=== PATIENT | male | born 1940 | race Caucasian/White ===

== ENCOUNTER 2016-12-19 11:18 | Observation (INO) | payer OTHER ==
[~2016-12-19] VITALS: Ht 177.8 cm; Wt 77.6 kg
[2016-12-19 05:15] VITALS: BP 182/74; PULSE 54; TEMP 36.5; O2SAT 97; BMI 25.0
[~2016-12-19 11:18] MED LIST: ALPR0.25 PO; AMLO-114 PO; ASCA500 PO; ASPI81TA28 PO; ATOR-26 PO; CARB10TA4 PO; CHOL100010 PO; GARL400T4 PO; LOSA50TA6 PO; LPR25 PO; MISC1CAP PO; MULTTAB58 PO; NTRGSL/4 UT; OXYC-164 PO; PANT1TAB48 PO; SYN125 PO; WARF5TAB90 PO; WARF7.5T PO
[2016-12-19 11:21] VITALS: Ht 177.8 cm; Wt 77.6 kg
--- NOTE | 2016-12-19 11:47 | EMERGENCY ROOM VISIT NOTE ---
History First contact with patient: 11:32 Chief Complaint: HYPERTENSION Stated Complaint: HYPERTENSION, REFERRED BY History of Present Illness The patient is a 76 year old male who presents to the Emergency Room via private vehicle with complaints of "hypertension, referred by Dr. Hanks". The patient states that he has a history of triple bypass in 2003, followed by stent placement in 2009. He states he has had numerous cardiac catheterizations. He states that he had been experiencing angina all winter long with exertion. He states that this changed, as this past Saturday he was sitting in his chair and developed midsternal chest pain that he believes is angina rated as a 2/10. He points to the center of his chest as a location of the pain. He states that this then subsided and Saturday he was walking across the parking lot, and began with a slight increase of midsternal chest pain rated as a 3/10. He states that this disappeared, and then Saturday he walked about 500 yards uphill and developed what he believes is an intense angina, and persisted for about 25 minutes. This episode radiating to the left arm. This then subsided, and Saturday evening, which is yesterday into this morning he developed a hollow feeling in his chest that states is not right. He went to see his ged teacher this morning, who sent him directly here for evaluation. He follows with Dr. Hanks of [facility]. He denies any chest pain currently. He denies associated shortness of breath. He takes an aspirin daily, and does have nitroglycerin tablets but has not taken any recently. He also has renal stenosis, and a CT scan showed aortic plaque. He states the pain he's been experiencing the past few days is similar to his previous chest pain which resulted in triple bypass and stent placement. Review of Systems A complete 10-point Review of Systems was discussed with the patient, with pertinent positives and negatives listed in the History of Present Illness. All remaining Review of Systems questions can be considered negative unless otherwise specified. Past Medical/Surgical History Medical Problems: (1) Anginal pain (2) Atrial fibrillation (3) BPH (benign prostatic hypertrophy) (4) Chest pain (5) Chronic ischemic heart disease (6) CKD (chronic kidney disease), stage III (7) Dyslipidemia (8) History of DVT (deep vein thrombosis) (9) History of peptic ulcer (10) Hypertension (11) Hypothyroidism (12) PAF (paroxysmal atrial fibrillation) (13) Peripheral neuropathy (14) Sleep apnea Surgical Problems: (1) H/O colonoscopy (2) H/O esophagogastroduodenoscopy (3) H/O heart artery stent (4) H/O shoulder surgery (5) S/P appendectomy (6) S/P CABG (coronary artery bypass graft) (7) S/P hemorrhoidectomy (8) S/P lumbar spinal fusion (9) S/P TURP (transurethral resection of prostate) Family History Cancer Diabetes mellitus Gallbladder disease Hypertension Social History Smoking Status: Former Smoker Alcohol Use: none Drug Use: none Marital Status: Housing Status: lives with family Occupation Status: retired Current/Historical Medications Scheduled Amlodipine (Norvasc), 10 MG PO HS Ascorbic Acid (Vitamin C), 500 MG PO DAILY Aspirin (Aspirin Ec), 81 MG PO DAILY Atorvastatin (Lipitor), 80 MG PO DAILY Carbidopa/Levodopa (Sinemet 10MG/100MG), 1 TAB PO HS Cholecalciferol (Vitamin D), 1 TAB PO DAILY Garlic (Garlic), 100 MG PO DAILY Hydralazine Hcl (Apresoline), 25 MG PO BID Levothyroxine Sodium (Synthroid), 125 MCG PO DAILY Losartan Potassium (Cozaar), 50 MG PO BID Metoprolol Tartrate (Lopressor), 12.5 MG PO BID Misc Natural Products (Narcosoft Herbal Lax), 1 TAB PO DAILY Multiple Vitamin (Multivitamin), 1 TAB PO DAILY Oxycodone HCl (Oxycodone HCl ER), 1 TAB PO BID Pantoprazole (Pantoprazole Sodium), 40 MG PO DAILY Warfarin Sodium (Coumadin), 7.5 MG PO UD Scheduled PRN Alprazolam (Xanax), 0.25 MG PO HS PRN for Sleep Nitroglycerin (Nitrostat), 0.4 MG UT UD PRN for Chest Pain Oxycodone Immediate Rel Tab (Roxicodone Ir), 15 MG PO Q6H PRN for Pain Allergies Coded Allergies: Terazosin (Verified Allergy, Intermediate, RASH, 12/19/16) Pseudoephedrine (Verified Allergy, Unknown, UKN, 12/19/16) ART Inhibitors (Verified Adverse Reaction, Mild, COUGH, 12/19/16) Isosorbide Nitrate (Verified Adverse Reaction, Mild, HAWKINS, 12/19/16) Nitrates, Organic (Verified Adverse Reaction, Mild, ORAL NITRATES=HAWKINS, 12/19) Physical Exam Vital Signs Date Time Temp Pulse Resp B/P Pulse Ox O2 Delivery O2 Flow Rate FiO2 12/19/16 13:07 49 16 153/80 95 Room Air 12/19/16 13:00 49 16 151/102 94 Room Air 12/19/16 12:05 51 16 161/109 95 Room Air 12/19/16 11:42 55 12/19/16 11:33 96 Room Air 12/19/16 11:21 36.9 58 18 197/81 98 Room Air 12/19/16 05:15 36.5 54 18 182/74 12/19/16 05:15 97 Room Air Physical Exam VITAL SIGNS - Vital signs and nursing notes were reviewed. GENERAL -76-year-old male appearing his stated age who is in no acute distress. Communicates well with provider and answers questions appropriately. SKIN - Without rashes. No petechial rashes. HEAD - NC/AT. EYES - PERRL with EOMI bilaterally. Sclera anicteric. Palpebral conjunctiva pink and moist with no injection noted. EARS - No deformities of external structures noted on gross examination bilaterally. NOSE - Midline and without cyanosis. No epistaxis or purulent drainage noted. MOUTH/OROPHARYNX - Without perioral cyanosis. LUNGS - Chest wall symmetric without accessory muscle use, intercostals retractions, or central cyanosis. Normal vesicular breath sounds CTA B/L. No wheezes, rales, or rhonchi appreciated. CARDIAC - RRR with S1/S2. No murmur, rubs, or gallops appreciated. ABDOMEN - Abdominal contour without pulsations or visible masses. BS normoactive all four quadrants. No tenderness, palpable masses, hepatosplenomegaly, or ascites noted. Medical Decision & Procedures ER Provider Diagnostic Interpretation: CHEST ONE VIEW PORTABLE CLINICAL HISTORY: Angina. Hypertension. COMPARISON STUDY: Chest radiograph November 30, 2014. FINDINGS: Lung volumes are normal. There is no consolidation. Median sternotomy wires are present. There are mediastinal surgical clips. Mild cardiomegaly is unchanged. There is no evidence of pulmonary edema. IMPRESSION: No acute cardiopulmonary findings. Electronically signed by: Seb Bernal M.D. 12/19/2016 12:54 PM Dictated Date/Time: 12/19/2016 12:53 PM Laboratory Results 12/19/16 12:00 Red Blood Count 4.74, Mean Corpuscular Volume 89.9, Mean Corpuscular Hemoglobin 31.0, Mean Corpuscular Hemoglobin Concent 34.5, Mean Platelet Volume 8.4, Neutrophils (%) (Auto) 67.8, Lymphocytes (%) (Auto) 21.6, Monocytes (%) (Auto) 7.3, Eosinophils (%) (Auto) 3.0, Basophils (%) (Auto) 0.3, Neutrophils # (Auto) 2.22, Lymphocytes # (Auto) 0.71, Monocytes # (Auto) 0.24, Eosinophils # (Auto) 0.10, Basophils # (Auto) 0.01 12/19/16 12:00 Test 12/19/16 12:00 12/19/16 12:09 White Blood Count 3.28 K/uL (4.8-10.8) Red Blood Count 4.74 M/uL (4.7-6.1) Hemoglobin 14.7 g/dL (14.0-18.0) Hematocrit 42.6 % (42-52) Mean Corpuscular Volume 89.9 fL (80-100) Mean Corpuscular Hemoglobin 31.0 pg (25-34) Mean Corpuscular Hemoglobin Concent 34.5 g/dl (32-36) Platelet Count 138 K/uL (130-400) Mean Platelet Volume 8.4 fL (7.4-10.4) Neutrophils (%) (Auto) 67.8 % Lymphocytes (%) (Auto) 21.6 % Monocytes (%) (Auto) 7.3 % Eosinophils (%) (Auto) 3.0 % Basophils (%) (Auto) 0.3 % Neutrophils # (Auto) 2.22 K/uL (1.4-6.5) Lymphocytes # (Auto) 0.71 K/uL (1.2-3.4) Monocytes # (Auto) 0.24 K/uL (0.11-0.59) Eosinophils # (Auto) 0.10 K/uL (0-0.5) Basophils # (Auto) 0.01 K/uL (0-0.2) RDW Standard Deviation 41.9 fL (36.4-46.3) RDW Coefficient of Variation 12.8 % (11.5-14.5) Immature Granulocyte % (Auto) 0.0 % Immature Granulocyte # (Auto) 0.00 K/uL (0.00-0.02) Erythrocyte Sedimentation Rate 6 mm/hr (0-14) Prothrombin Time 17.9 SECONDS (9.0-12.0) Prothromb Time International Ratio 1.6 (0.9-1.1) Activated Partial Thromboplast Time 34.0 SECONDS (21.0-31.0) Partial Thromboplastin Ratio 1.3 Anion Gap 6.0 mmol/L (3-11) Est Creatinine Clear Calc Drug Dose 54.9 ml/min Estimated GFR () 68.1 Estimated GFR (Non- 58.8 BUN/Creatinine Ratio 14.2 (10-20) Calcium Level 8.8 mg/dl (8.5-10.1) Magnesium Level 2.5 mg/dl (1.8-2.4) Total Bilirubin 0.6 mg/dl (0.2-1) Aspartate Amino Transf (AST/SGOT) 25 U/L (15-37) Alanine Aminotransferase (ALT/SGPT) 27 U/L (12-78) Alkaline Phosphatase 82 U/L (45-117) Total Creatine Kinase 129 U/L (39-308) Total Protein 7.1 gm/dl (6.4-8.2) Albumin 4.1 gm/dl (3.4-5.0) Globulin 3.0 gm/dl (2.5-4.0) Albumin/Globulin Ratio 1.4 (0.9-2) Thyroid Stimulating Hormone (TSH) 1.590 uIu/ml (0.300-4.500) Bedside Troponin I 0.000 ng/ml (0-0.045) Medical Decision Patient was seen and evaluated as above. After obtaining a thorough history and physical examination IV access was initiated and the above workup was performed. Patient was referred here by his ged teacher for further evaluation and management with potential admission to the hospital. I do believe that this is all reasonable. Emergent EKG was obtained which reveals a sinus bradycardia with first-degree AV block, and when compared with EKG of 02/2016 a septal infarct is now present. There is no acute ST segment elevation or depression at this time. He denied any current chest pain, therefore medication was not administered. CBC reveals low blood cell count at 3.28 which appears to be similar to previous, no anemia noted, INR is 1.6, no slight abnormality, kidney function is within normal limits, magnesium is 2.5, TSH is normal. Chest x-ray stable. Troponin was 0.000. Patient was stable throughout his stay. He was noted be hypertensive, initially at 197/81, followed by 161/109 which shows a slight decrease in systolic, and then to 151/ 102. Patient does appear to have decrease in his blood pressure throughout his stay there for probably the intervention is necessary. Additional Beta wilber certainly want to be avoided as his pulses are is already low in the 40s. I believe this time the patient is stable for admission. He was evaluated by my attending. At this time I do not believe he is experiencing an acute FL do believe that unstable angina is certainly a concern and that trending EKG and troponin may be warranted. Please refer to further documentation regarding his stay. In the evaluation treatment of this patient the following differential diagnoses were entertained: Acute FL, PE, unstable angina, among others. Impression Primary Impression: Unstable angina Additional Impression: Hypertension Departure Information Dispostion Admitted as an inpatient Condition FAIR Referrals Juliana Tillman MD (PCP) Patient Instructions My [facility] Problem Qualifiers
[2016-12-19 12:15] LABS: BASO % 0.3 %; BASO ABS # 0.01 K/uL (0-0.2); COMPLETE YES; HEMATOCRIT 42.6 % (42-52); LYMPH % 21.6 %; LYMPH ABS # 0.71 K/uL (1.2-3.4); MEAN CELL VOLUME 89.9 fL (80-100); MEAN CORPUSCULAR HGB CONC 34.5 g/dl (32-36); MEAN PLATELET VOLUME 8.4 fL (7.4-10.4); MONO % 7.3 %; NEUT % 67.8 %; PLATELET COUNT 138 K/uL (130-400); RED BLOOD COUNT 4.74 M/uL (4.7-6.1); WHITE BLOOD COUNT 3.28 K/uL (4.8-10.8)
[2016-12-19] MEDS ORDERED: OXYC1TAB3 PO (12:15)
[2016-12-19] MEDS ORDERED: OXYC-787 PO (12:15)
[2016-12-19] MEDS ORDERED: CHOL100010 PO (12:23)
[2016-12-19] MEDS ORDERED: APR25 PO (12:23)
[2016-12-19] MEDS ORDERED: GARL1TAB8 PO (12:26)
--- NOTE | 2016-12-19 12:27 | Cardiology Consultation ---
Cardiology Consultation Date of Consultation: Dec 19, 2016 History of Present Illness Chief Complaint: Chest discomfort History of Present Illness: Mateo Blanc is a 76 year old year old male who presented to the outpatient cardiology clinic today as an acute visit for complaint of recent chest discomfort. The patient had last been seen by the undersigned as an outpatient in March,. He reports no recent hospital stays. He notes that 4 days ago he noted chest discomfort that improved with nitroglycerin. He felt better the next day but still had a hollow feeling in his chest had a little angina during his activities of daily living. He went to a concert that evening and had chest discomfort similar to his prior angina while he walked in to the concert the persisted throughout the performance. He subsequently felt improved. 2 days later on 12/18/2016 he went for a walk and after her walking 500 yards of a minor incline he noted severe left chest discomfort that radiated down his left arm. He relaxed and felt better. He called our office and a visit was arranged for today. Assessment at our office his blood pressure was 170/88 millimeters Hg on initial blood pressure reading taken by the nurse. When I personally read checked his blood pressure it was 160/80 millimeters Hg. The patient denied any definite chest discomfort when I saw him in the office but did note this feeling of hollowness" in his chest. He has a long-standing history of exertional angina with activity such as caring would in the winter time and has a certain threshold of exertion which she usually triggers his angina when he is doing activities such as caring the firewood or even golfing. The chest discomfort he describes over the last several days is occurring with minimal exertion compared to his prior long- standing stable exertional chest discomfort. The patient has had issues with chronic pain due to his generalized neuropathy as well as left brachial neuropathy. He is now on OxyContin as well as immediate release oxycodone as summarized below as managed by who is a transportation equipment painter in [place]. The patient notes recent monthly visits with the transportation equipment painter and his blood pressures have been relatively well controlled. It is noted that in the past he had elevated blood pressure in the setting of uncontrolled pain both his chronic pain in his blood pressure readings have apparently been okay recently. The patient has a long-standing history of coronary artery disease having had CABG x 3 in 2004 at age 64 at [facility]. He has a long-standing history of chronic exertional angina. His medication treatment for this has been limited due to side effects. He has not tolerated long-acting nitroglycerin treatment with isosorbide mononitrate in the past due to headache and debilitating fatigue. He has also not tolerated treatment with Ranexa. He has tolerated amlodipine which is been titrated to the maximum dose of 10 milligrams daily. And he is on a relatively low dose of metoprolol given his baseline sinus bradycardia with first-degree AV block. History Past Medical History: 1. Coronary artery disease with history of stable Class II angina, stable cardiac catheterization , 12/01/14 at [facility] [place] noted at that time with severe afognak vessel disease for which medical management was recommended 2. Paroxysmal Atrial fibrillation, (noted when post op CABG) with recurrence hospitalization 11/2012 3. Left median nerve neuropathy, status post failed left radial artery approach, subsequent left brachial artery approach. Cardiac catheterization 06/11. 4. Left upper extremity DVT, diagnosed on duplex 06/16/12, post cath 5. Stable angina, LAD territory ischemia on pharm nuclear stress, preserved LVEF -prompted cath 06/2012- medical Rx recommened, no target for revascularization 6. Post CABG x 3 in 2004 at [facility] with OATES to LAD, saphenous vein graft to obtuse marginal and PDA. 7. Patent grafts per cardiac catheterization February 2010 with bare metal stenting to the afognak circumflex artery with bare metal stent at that time. 8. Prior h/o stage 3 CKD 9. Dyslipidemia 10. Intolerance of Nitroglycerin analogs including topical Nitroglycerin as well as Isosorbide. 11. History of intolerance of Loyd inhibitors. 12. 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 Allergies Coded Allergies: Pseudoephedrine (Verified Allergy, Unknown, UKN, 12/19/16) Terazosin (Verified Allergy, Unknown, RASH, 12/19/16) LOYD Inhibitors (Verified Adverse Reaction, Mild, COUGH, 12/19/16) Isosorbide Nitrate (Verified Adverse Reaction, Mild, HAWKINS, 12/19/16) Nitrates, Organic (Verified Adverse Reaction, Mild, ORAL NITRATES=HAWKINS, 12/19) Medications Reported Home Medications Medications Dose Route/Sig Max Daily Dose Days Date Category Dose Instructions Roxicodone Ir (Oxycodone HCl) 5 Mg Tab 15 Mg PO Q6H PRN 12/19/16 Reported Oxycodone HCl ER (Oxycodone HCl) 30 Mg Tab 1 Tab PO BID 12/19/16 Reported Protonix (Pantoprazole) 40 Mg Tab 40 Mg PO BID 30 04/20/15 Rx Aspirin Ec (Aspirin) 81 Mg Tab 81 Mg PO DAILY 03/29/15 Reported Cozaar (Losartan Potassium) 50 Mg Tab 50 Mg PO BID 03/29/15 Reported Synthroid (Levothyroxine Sodium) 125 Mcg Tab 125 Mcg PO DAILY 03/29/15 Reported Coumadin (Warfarin Sodium) 7.5 Mg Tab 7.5 Mg PO 3XWK 01/11/15 Reported TAKE ON SATURDAY,SATURDAY,THURSDAYS Narcosoft Herbal Lax ([facility] Natural Products) 1 Cap Cap 1 Tab PO DAILY 11/30/14 Reported Vitamin C (Ascorbic Acid) 500 Mg Tab 500 Mg PO DAILY 11/30/14 Reported Garlic (Garlic-Calcium) 1 Tab Tab 100 Mg PO DAILY 11/30/14 Reported Coumadin (Warfarin Sodium) 5 Mg Tab 5 Mg PO 4XWK 11/30/14 Reported MON,WED,FRI,SAT Lopressor (Metoprolol Tartrate) 25 Mg Tab 12.5 Mg PO BID 11/30/14 Reported Lipitor (Atorvastatin Calcium) 80 Mg Tab 80 Mg PO DAILY 12/02/12 Reported Multivitamin (Multiple Vitamin) 1 Tab Tab 1 Tab PO DAILY 06/17/12 Reported Xanax (Alprazolam) 0.25 Mg Tab 0.25 Mg PO HS PRN 06/17/12 Reported Nitrostat (Nitroglycerin) 0.4 Mg Tab 0.4 Mg UT UD PRN 07/14/10 Reported Sinemet 10MG/100MG (Carbidopa/Levodopa) Tab 1 Tab PO HS 06/14/10 Reported RESTLESS LEGS Vitamin D (Cholecalciferol) 1,000 Inter.unit Tab 1,000 Inter.unit PO DAILY 06/14/10 Reported Norvasc (Amlodipine Besylate) 10 Mg Tab 10 Mg PO HS 06/14/10 Reported Physical Exam Vital Signs (Last 8hrs): Last 8 Hrs Date Time Temp Pulse Resp B/P Pulse Ox O2 Delivery O2 Flow Rate FiO2 12/19/16 12:05 51 16 161/109 95 Room Air 12/19/16 11:42 55 12/19/16 11:33 96 Room Air 12/19/16 11:21 36.9 58 18 197/81 98 Room Air As Examined at [facility], 04/20/17 at 925 am. General Appearance: Alert and Oriented x3. NAD. Head: Normocephalic Atraumatic. Eyes: PERRLA, EOMI, conjunctiva and sclera clear Neck: Supple. No carotid bruits noted. No JVD. No HJD. Respiratory: Breath sounds clear to auscultation bilaterally. No w/r/r. Cardiovascular: Reg rate and rhythm. S1 and S2 noted. No murmurs, rubs, gallops. PMI non displace. Abdomen: Normal bowel sounds, soft nontender. no abdominal bruits. Extremities: No edema, no clubbing or cyanosis. distal pulses 2/4 bilaterally. Neuro: No focal deficits. Psychiatric: Normal affect. Data Last Resulted 12/19/16 12:00 Red Blood Count 4.74, Mean Corpuscular Volume 89.9, Mean Corpuscular Hemoglobin 31.0, Mean Corpuscular Hemoglobin Concent 34.5, Mean Platelet Volume 8.4, Neutrophils (%) (Auto) 67.8, Lymphocytes (%) (Auto) 21.6, Monocytes (%) (Auto) 7.3, Eosinophils (%) (Auto) 3.0, Basophils (%) (Auto) 0.3, Neutrophils # (Auto) 2.22, Lymphocytes # (Auto) 0.71, Monocytes # (Auto) 0.24, Eosinophils # (Auto) 0.10, Basophils # (Auto) 0.01 Past 24 Hours Test 12/19/16 11:43 12/19/16 12:00 Range/Units Creatine Kinase MB Ratio 0-3.0 EKG performed 12/19/2016 reviewed independently by the undersigned: Sinus bradycardia 54 beats per minute, first-degree AV block, age undetermined septal infarction pattern, stable EKG findings compared to last tracing. Assessment & Plan IMPRESSION: 76 year old year old male who presents with symptoms of unstable angina in the setting of uncontrolled hypertension. RECOMMENDATIONS/PLAN: The patient 's EKG is stable. The patient has a long-standing history of chronic stable exertional angina. He has a pattern of past crescendo angina with cardiac catheterization in 2011 in 2014 revealing stable disease for which medical management was recommended. He did receive a bare metal stent to the afognak circumflex in 2009. He has a history of past gastrointestinal bleeding and duodenal ulcer that is been stable on aspirin plus Coumadin for the last several years with stable hemoglobin. I had a long discussion with the patient and his spouse. I recommend emergency room evaluation and admission to [facility] for observation. His cardiac enzymes and EKG should be trended to rule out myocardial infarction. In terms of therapy, recommend aggressive therapy to better control his blood pressure. Would consider starting with a sublingual nitroglycerin in the emergency department. In terms of his chronic medications would first increase his hydralazine to 25 milligrams three times daily or even four times daily. There is no room to increase his beta-wilber therapy due to sinus bradycardia. He is on a maximum dose of losartan. His on a maximum dose of amlodipine. If his anginal symptoms not improve with conservative therapy and optimal blood pressure management will likely need repeat cardiac catheterization which should be performed at a tertiary center. His past cardiac catheterizations were performed at [facility]. 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
[2016-12-19 12:31] LABS: INR 1.6 (0.9-1.1); PARTIAL THROMBOPLASTIN RATIO 1.3; PROTHROMBIN TIME (PATIENT) 17.9 SECONDS (9.0-12.0)
[2016-12-19 12:37] LABS: BUN/CREATININE RATIO 14.2 (10-20); CALCIUM 8.8 mg/dl (8.5-10.1); CREATININE 1.2 mg/dl (0.60-1.40); MAGNESIUM 2.5 mg/dl (1.8-2.4); POTASSIUM 4.3 mmol/L (3.5-5.1)
[2016-12-19 12:48] LABS: ALB/GLOB RATIO 1.4 (0.9-2); CKMB/CK RATIO 1.3 (0-3.0); THYROID STIMULATING HORMONE 1.59 uIu/ml (0.300-4.500)
--- NOTE | 2016-12-19 12:56 | DIAGNOSTIC IMAGING REPORT ---
CHEST ONE VIEW PORTABLE CLINICAL HISTORY: Angina. Hypertension. COMPARISON STUDY: Chest radiograph November 30, 2014. FINDINGS: Lung volumes are normal. There is no consolidation. Median sternotomy wires are present. There are mediastinal surgical clips. Mild cardiomegaly is unchanged. There is no evidence of pulmonary edema. IMPRESSION: No acute cardiopulmonary findings. Electronically signed by: Seb Bernal M.D. 12/19/2016 12:54 PM Dictated Date/Time: 12/19/2016 12:53 PM
--- NOTE | 2016-12-19 13:09 | EMERGENCY ROOM VISIT NOTE ---
ED Visit Note First contact with patient: 11:32 I did evaluate and examine this patient myself. I did guide management for the patient. I agree with the PA's assessment as discussed. Please see the PAs dictation for further details. I did independently review the 12-lead EKG, x- rays and blood work. I did talk to Dr. Hanks regarding this patient. He was sent here for hospitalization. His blood pressure is significantly improved. He currently denies any chest discomfort. [facility].
[2016-12-19] MEDS ORDERED: NITROGLYCERIN 0.4 MG SL PER TAB CHARGE SL PRN (14:00)
[2016-12-19] MEDS ORDERED: ONDANSETRON INJ 2 MG/ML 2 ML VIAL IV PRN (14:00)
[2016-12-19] MEDS ORDERED: ACETAMINOPHEN 325 MG TAB PO PRN (14:00)
[2016-12-19] MEDS ORDERED: WARF5TAB90 PO (14:11)
[2016-12-19] MEDS ORDERED: PRT40 PO (14:11)
[2016-12-19] MEDS ORDERED: OXYCODONE HCL IR 5 MG TAB (IMMEDIATE RELEASE) PO PRN (14:15)
[2016-12-19] MEDS ORDERED: ALPRAZOLAM 0.25 MG TAB PO PRN (14:15)
[2016-12-19] MEDS ORDERED: IV FLUIDS COMPLETED PRN (14:30)
--- NOTE | 2016-12-19 15:08 | History and Physical ---
History & Physical Date & Time of Service: Dec 19, 2016 at 14:28 Chief Complaint: Hypertension, Referred By Md Primary Care Physician: No Doctor, Assigned History of Present Illness This is a 76 y/o male with PMHx of CAD s/p CABG, PAF on Coumadin, CKD stage 3, HTN, Dyslipidemia and other problems as outlined below who presents to the ED from the cardiology office with complaints of chest discomfort. Pt reports that 4 days ago he developed 2/10 central chest pain while sitting watching TV. The discomfort lasted about 10 minutes before resolving without intervention. The next day, patient developed similar chest discomfort as he was walking to a concert and it persisted for the entire performance (about 75 mins). Two days ago, patient was walking up a slight incline and after about 500 yds he developed 8/10 L chest pain that radiated down his L arm. He did not have his nitro on him and the severe pain persisted for about 30 minutes before resolving. Yesterday evening into this morning he developed a "hollow" feeling in his chest that "doesn't feel right". Pt has a history of chronic exertional angina. The chest discomfort he describes over the last several days is more intense and occurring with minimal exertion compared to his prior long-standing stable exertional chest discomfort. Pt has a history of CAD s/p CABG x 3 in 2004 at [facility] as well as one stent place in 2009. Cardiac cath in 2014 showed non-obstructive CAD that was managed medically. Pt was seen by cardiology (Dr. Hanks) in the office this morning. They recommended pt go to the ED for further evaluation. The patient has had issues with chronic pain due to his generalized neuropathy. He takes OxyContin as well as Oxycodone IR and follows with pain mgmt in [place]. Pt denies fever/chills, diaphoresis, SOB, abd pain, N/V, bowel or bladder issues , LE edema ,calf pain, lightheadedness/dizziness. In the ED, pt is bradycardic with elevated blood pressure. INR 1.6. CXR negative. Initial trop is negative and EKG shows bradycardia with 1* AV block and age indeterminate septal infarct. Pt is currently chest pain free and will be admitted for further evaluation and treatment. Past Medical/Surgical History Medical Problems: (1) Anginal pain Status: Chronic (2) Atrial fibrillation Status: Chronic (3) BPH (benign prostatic hypertrophy) Permanent Comment: s/p TURP 11/2010 Status: Chronic (4) Chronic ischemic heart disease Status: Chronic (5) CKD (chronic kidney disease), stage III Status: Chronic (6) Dyslipidemia Status: Chronic (7) History of DVT (deep vein thrombosis) Permanent Comment: 06/2012- left upper extremity Status: Chronic (8) History of peptic ulcer Status: Chronic (9) Hypertension Status: Chronic (10) Hypothyroidism Status: Chronic (11) PAF (paroxysmal atrial fibrillation) Status: Chronic (12) Peripheral neuropathy Status: Chronic (13) Sleep apnea Status: Chronic Surgical Problems: (1) H/O colonoscopy Status: Chronic (2) H/O esophagogastroduodenoscopy Status: Chronic (3) H/O heart artery stent Status: Chronic (4) H/O shoulder surgery Status: Chronic (5) S/P appendectomy Status: Chronic (6) S/P CABG (coronary artery bypass graft) Permanent Comment: 2003- CABG x 3 Status: Chronic (7) S/P hemorrhoidectomy Status: Chronic (8) S/P lumbar spinal fusion Status: Chronic (9) S/P TURP (transurethral resection of prostate) Status: Chronic Family History Cancer Diabetes mellitus Gallbladder disease Hypertension Social History Smoking Status: Former Smoker (17 pack year history; quit 40 years ago ) Alcohol Use: none Drug Use: none Marital Status: Housing status: lives with significant other Occupational Status: retired Immunizations History of Influenza Vaccine: No History of Tetanus Vaccine?: Unknown History of Pneumococcal: Yes Pneumococcal Date: Sep 18, 2007 History of Hepatitis B Vaccine: No Multi-Drug Resistant Organisms History of MDRO: No Allergies Coded Allergies: Terazosin (Verified Allergy, Intermediate, RASH, 12/19/16) Pseudoephedrine (Verified Allergy, Unknown, UKN, 12/19/16) ART Inhibitors (Verified Adverse Reaction, Mild, COUGH, 12/19/16) Isosorbide Nitrate (Verified Adverse Reaction, Mild, HAWKINS, 12/19/16) Nitrates, Organic (Verified Adverse Reaction, Mild, ORAL NITRATES=HAWKINS, 12/19) Home Medications Scheduled Amlodipine (Norvasc), 10 MG PO HS Ascorbic Acid (Vitamin C), 500 MG PO DAILY Aspirin (Aspirin Ec), 81 MG PO DAILY Atorvastatin (Lipitor), 80 MG PO DAILY Carbidopa/Levodopa (Sinemet 10MG/100MG), 1 TAB PO HS Cholecalciferol (Vitamin D), 1 TAB PO DAILY Garlic (Garlic), 100 MG PO DAILY Hydralazine Hcl (Apresoline), 25 MG PO BID Levothyroxine Sodium (Synthroid), 125 MCG PO DAILY Losartan Potassium (Cozaar), 50 MG PO BID Metoprolol Tartrate (Lopressor), 12.5 MG PO BID Misc Natural Products (Narcosoft Herbal Lax), 1 TAB PO DAILY Multiple Vitamin (Multivitamin), 1 TAB PO DAILY Oxycodone HCl (Oxycodone HCl ER), 1 TAB PO BID Pantoprazole (Pantoprazole Sodium), 40 MG PO DAILY Warfarin Sodium (Coumadin), 7.5 MG PO UD Scheduled PRN Alprazolam (Xanax), 0.25 MG PO HS PRN for Sleep Nitroglycerin (Nitrostat), 0.4 MG UT UD PRN for Chest Pain Oxycodone Immediate Rel Tab (Roxicodone Ir), 15 MG PO Q6H PRN for Pain Review of Systems Constitutional: No chills, No fatigue, No fever, No sweats, No weakness Eyes: No worsening of vision ENT: No hearing loss Respiratory: No cough, No shortness of breath Cardiovascular: + chest pain, No claudication, No edema Abdomen: No constipation, No diarrhea, No nausea, No pain, No vomiting Musculoskeletal: No calf pain, No swelling Genitourinary - Male: No dysuria Neurologic: No weakness Psychiatric: No depression symptoms Endocrine: No fatigue Hematologic / Lymphatic: No abnormal bleeding/bruising Integumentary: No new/changing skin lesions Physical Exam Vital Signs Date Time Temp Pulse Resp B/P Pulse Ox O2 Delivery O2 Flow Rate FiO2 12/19/16 13:07 49 16 153/80 95 Room Air 12/19/16 13:00 49 16 151/102 94 Room Air 12/19/16 12:05 51 16 161/109 95 Room Air 12/19/16 11:42 55 12/19/16 11:33 96 Room Air 12/19/16 11:21 36.9 58 18 197/81 98 Room Air General Appearance: WD/WN, no apparent distress, + pertinent finding (Pt is sitting up in bed with at bedside) Head: normocephalic, atraumatic Eyes: normal inspection ENT: hearing grossly normal Neck: supple Respiratory/Chest: chest non-tender, lungs clear, normal breath sounds, no respiratory distress Cardiovascular: regular rate, rhythm, no edema, no murmur Abdomen/GI: normal bowel sounds, non tender, soft Back: normal inspection Extremities/Musculoskelatal: normal inspection, no calf tenderness, no pedal edema Neurologic/Psych: alert, normal mood/affect, oriented x 3 Skin: normal color, warm/dry Diagnostics Laboratory Results Results Past 24 Hours Test 12/19/16 12:00 12/19/16 12:09 Range/Units White Blood Count 3.28 4.8-10.8 K/uL Red Blood Count 4.74 4.7-6.1 M/uL Hemoglobin 14.7 14.0-18.0 g/dL Hematocrit 42.6 42-52 % Mean Corpuscular Volume 89.9 80-100 fL Mean Corpuscular Hemoglobin 31.0 25-34 pg Mean Corpuscular Hemoglobin Concent 34.5 32-36 g/dl Platelet Count 138 130-400 K/uL Mean Platelet Volume 8.4 7.4-10.4 fL Neutrophils (%) (Auto) 67.8 % Lymphocytes (%) (Auto) 21.6 % Monocytes (%) (Auto) 7.3 % Eosinophils (%) (Auto) 3.0 % Basophils (%) (Auto) 0.3 % Neutrophils # (Auto) 2.22 1.4-6.5 K/uL Lymphocytes # (Auto) 0.71 1.2-3.4 K/uL Monocytes # (Auto) 0.24 0.11-0.59 K/uL Eosinophils # (Auto) 0.10 0-0.5 K/uL Basophils # (Auto) 0.01 0-0.2 K/uL RDW Standard Deviation 41.9 36.4-46.3 fL RDW Coefficient of Variation 12.8 11.5-14.5 % Immature Granulocyte % (Auto) 0.0 % Immature Granulocyte # (Auto) 0.00 0.00-0.02 K/uL Prothrombin Time 17.9 9.0-12.0 SECONDS Prothromb Time International Ratio 1.6 0.9-1.1 Activated Partial Thromboplast Time 34.0 21.0-31.0 SECONDS Partial Thromboplastin Ratio 1.3 Sodium Level 140 136-145 mmol/L Potassium Level 4.3 3.5-5.1 mmol/L Chloride Level 105 98-107 mmol/L Carbon Dioxide Level 29 21-32 mmol/L Anion Gap 6.0 3-11 mmol/L Blood Urea Nitrogen 17 7-18 mg/dl Creatinine 1.20 0.60-1.40 mg/dl Est Creatinine Clear Calc Drug Dose 54.9 ml/min Estimated GFR () 68.1 Estimated GFR (Non- 58.8 BUN/Creatinine Ratio 14.2 10-20 Random Glucose 84 70-99 mg/dl Calcium Level 8.8 8.5-10.1 mg/dl Magnesium Level 2.5 1.8-2.4 mg/dl Total Bilirubin 0.6 0.2-1 mg/dl Aspartate Amino Transf (AST/SGOT) 25 15-37 U/L Alanine Aminotransferase (ALT/SGPT) 27 12-78 U/L Alkaline Phosphatase 82 45-117 U/L Total Creatine Kinase 129 39-308 U/L Creatine Kinase MB 1.7 0.5-3.6 ng/ml Creatine Kinase MB Ratio 1.3 0-3.0 Total Protein 7.1 6.4-8.2 gm/dl Albumin 4.1 3.4-5.0 gm/dl Globulin 3.0 2.5-4.0 gm/dl Albumin/Globulin Ratio 1.4 0.9-2 Thyroid Stimulating Hormone (TSH) 1.590 0.300-4.500 uIu/ml Bedside Troponin I 0.000 0-0.045 ng/ml Diagnostic Radiology CXR IMPRESSION: No acute cardiopulmonary findings. EKG EKG: sinus attila at 54 bpm with 1* AV block and age indeterminate septal infarct ; criteria for septal infarct is new when compared to EKG from 01/13/16 Impression Assessment and Plan CHEST PAIN R/O ACS pt presented with chest pain occurring with exertion and at rest -observation status to telemetry -RFs include CAD s/p CABG and stents, HTN, Dyslipidemia, sex and age -cardiac cath 2014 non-obstructive CAD -EKG sinus attila with 1* AV block and age indeterminate septal infarct; repeat EKG PRN chest pain and in AM -Initial troponin is negative; continue to monitor with serial cardiac enzymes q6h -obtain echo to r/o cardiac wall motion abnormalities -cont ASA, BB and high-dose statin -consult cardiology, Dr. Rosen-appreciate input -pt is currently chest pain free -continue to monitor HYPERTENSION -BP elevated in ED; now 150s/80s -cont hydralazine, losartan, amlodipine and metoprolol -monitor PAF -sinus rhythm on monitor -INR subtherapeutic at 1.6 -cont Coumadin and metoprolol -monitor INR daily CKD STAGE 3 -creatinine is at baseline around 1.2 -continue to monitor with daily prp and avoid nephrotoxic agents when able HYPOTHYROIDISM -cont levothyroxine CHRONIC NEUROPATHIC PAIN -cont OxyContin and Oxycodone IR -pt follows with pain holistic specialist in [place] DYSLIPIDEMIA -cont high-dose statin DVT PROPHYLAXIS -INR subtherapeutic (1.6); cont Coumadin and bridge with heparin CODE STATUS -FULL CODE status per discussion with patient upon admission. DISPO Observation status until further workup is complete. Pt seen in collaboration with Dr. Vargas. Please see his addendum for further details. Thanks! -Of note: patient will be followed by Dr. Wiggins starting tomorrow AM VTE Prophylaxis VTE Risk Assessment Done? Y/N: Yes Risk Level: High Note ATTENDING ADDENDUM Record reviewed. Patient interviewed and examined in ED @ 14:05. Care coordinated with Stacie Wilson PA-C. Please refer to her documentation for patient's history. Briefly, 76 YO male with ischemic heart disease, s/p PCI circumflex, s/p CABG. Presented with worsening exertional angina over past 1-2 weeks. EXAM: General- no acute distress VS- as noted Neck- no JVD Lungs- clear Heart- RRR, II/ sys murmur at base, no gallop Abdomen- + BS, soft, nontender Extremities- no pretibial edema or calf tenderness Neuro- alert DATA: Total CPK 129, CPK-MB 1.7, trop I 0.00. Other lab studies as noted. CXR- postsurgical changes, no acute process. EKG performed at 11:33 reviewed and demonstrated SB at 54 / minute, possible age -indeterminate septal infarct, no acute ST or T-wave changes.. ASSESSMENT AND PLAN: Suspected unstable angina. EKG suggests age-indeterminate septal infarct that is new compared to 01/13/16. Continue aspirin, metoprolol, amlodipine, losartan, statin. Increase hydralazine per Cardiology's recommendations. Check serial cardiac markers. History of PAF. EKG today shows SB. Continue metoprolol and warfarin. Please refer to DANNA Wilson's documentation for discussion of other issues. David Vargas MD .
[2016-12-19] MEDS ORDERED: WARFARIN SOD 5 MG TAB PO SCH (16:00)
[2016-12-19] MEDS: OXYCODONE HCL IR 5 MG TAB (IMMEDIATE RELEASE) PO SCH ×2 (16:38→21:22)
[2016-12-19 20:00] VITALS: BP 154/73; PULSE 56; TEMP 36.7; O2SAT 94
[2016-12-19] MEDS: OXYCODONE HCL 15 MG TABCR (OXYCONTIN) PO SCH (20:32)
[2016-12-19] MEDS: LOSARTAN POTASSIUM 50 MG TAB PO SCH (20:35)
[2016-12-19] MEDS: METOPROLOL TARTRATE 25 MG TAB PO SCH (20:36)
[2016-12-19] MEDS ORDERED: CARBIDOPA/LEVODOPA 10/100MG TAB PO SCH (21:00)
[2016-12-19] MEDS ORDERED: AMLODIPINE BESYLATE 5 MG TAB PO SCH (21:00)
[2016-12-19] MEDS: HEPARIN SOD 5000 UNIT/0.5 ML CARP SQ SCH (21:21)
[2016-12-20] VITALS: BP 152/90; PULSE 53; TEMP 36.7; O2SAT 96
[2016-12-20 04:03] VITALS: BP 149/81; PULSE 52; TEMP 36.6; O2SAT 97
[2016-12-20] MEDS ORDERED: LEVOTHYROXINE 125 MCG TAB PO SCH (06:00)
[2016-12-20 06:30] VITALS: BP 161/84; PULSE 54
[2016-12-20 07:20] VITALS: BP 147/75; PULSE 54; TEMP 36.4; O2SAT 94
[2016-12-20 07:31] LABS: HEMATOCRIT 39.6 % (42-52); MEAN CELL VOLUME 91.2 fL (80-100); MEAN CORPUSCULAR HEMOGLOBIN 31.1 pg (25-34); MEAN CORPUSCULAR HGB CONC 34.1 g/dl (32-36); MEAN PLATELET VOLUME 8.5 fL (7.4-10.4); PLATELET COUNT 116 K/uL (130-400); RED BLOOD COUNT 4.34 M/uL (4.7-6.1); WHITE BLOOD COUNT 2.53 K/uL (4.8-10.8)
[2016-12-20 07:44] LABS: INR 1.6 (0.9-1.1); PROTHROMBIN TIME (PATIENT) 17.6 SECONDS (9.0-12.0)
[2016-12-20 08:36] LABS: BUN/CREATININE RATIO 17.5 (10-20); CREATININE 1.1 mg/dl (0.60-1.40); POTASSIUM 3.8 mmol/L (3.5-5.1)
[2016-12-20] MEDS: LOSARTAN POTASSIUM 50 MG TAB PO SCH (08:50)
[2016-12-20] MEDS: METOPROLOL TARTRATE 25 MG TAB PO SCH (08:50)
[2016-12-20] MEDS: OXYCODONE HCL IR 5 MG TAB (IMMEDIATE RELEASE) PO SCH ×2 (08:51→12:25)
[2016-12-20 08:56] LABS: CALCIUM 9.5 mg/dl (8.5-10.1)
[2016-12-20] MEDS ORDERED: ATORVASTATIN 40 MG TAB PO SCH (09:00)
[2016-12-20] MEDS ORDERED: MULTIVITAMIN TAB PO SCH (09:00)
[2016-12-20] MEDS ORDERED: ASPIRIN 81 MG ECTAB PO SCH (09:00)
[2016-12-20] MEDS ORDERED: PANTOprazole SOD 40 MG TAB PO SCH (09:00)
[2016-12-20] MEDS ORDERED: GARLIC 100 MG PO SCH (09:00)
[2016-12-20] MEDS ORDERED: ASCORBIC ACID 500 MG TAB PO SCH (09:00)
[2016-12-20] MEDS ORDERED: CHOLECALCIFEROL 1000 INTER.UNIT TAB PO SCH (09:00)
[2016-12-20] MEDS ORDERED: NATURAL PRODUCTS PO SCH (09:00)
[2016-12-20] MEDS: HEPARIN SOD 5000 UNIT/0.5 ML CARP SQ SCH (09:01)
--- NOTE | 2016-12-20 10:02 | ECHOCARDIOGRAM REPORT ---
*NOTICE TO RECEIVING [employer] This information is strictly Confidential and protected under [place] law. [place] law prohibits you from making any further disclosure of this information unless further disclosure is expressly permitted by the written consent of the person to whom it pertains or is authorized by law. A general authorization for the release of medical or other information is not sufficient for this purpose. Hospital accepts no responsibility if the information is made available to any other person, INCLUDING THE PATIENT. Interpretation Summary * Name: TAY YU Study Date: 12/20/2016 06:44 AM BP: 147/75 mmHg * Patient Location: C.2T\S\S244\S\1 HR: 54 * : 1940 (M/d/yyyy) Gender: Male Height: 70 in * Age: 76 yrs Ethnicity: CA Weight: 177 lb * Ordering Physician: Stacie Wilson * Referring Physician: Mike Hanks D.O. * Performed By: Jessie Cui RDCS * * Reason For Study: Chest pain * BSA: 2.0 m2 * Compared to prior study, there is no significant change. * -- Conclusions -- * The left ventricle is normal in size. * There is normal left ventricular wall thickness. * There is mild inferior wall hypokinesis. * Left ventricular systolic function is normal. * Ejection Fraction = 60-65%. * Aortic valve sclerosis moderate, without significant aortic valvular stenosis. * There is trace mitral regurgitation. * There is trace tricuspid regurgitation. Procedure Details * A complete two-dimensional transthoracic echocardiogram was performed (2D, M-mode, Doppler and color flow Doppler). Left Ventricle * The left ventricle is normal in size. * There is normal left ventricular wall thickness. * Left ventricular systolic function is normal. * Ejection Fraction = 60-65%. * There is mild inferior wall hypokinesis. Right Ventricle * The right ventricle is normal in size and function. Atria * The left atrial size is normal. * Right atrial size is normal. * No ASD detected; PFO is not assessed. Mitral Valve * The mitral valve anatomy is normal. * There is no mitral valve stenosis. * There is trace mitral regurgitation. Tricuspid Valve * The tricuspid valve is normal. * There is no tricuspid stenosis. * There is trace tricuspid regurgitation. Aortic Valve * The aortic valve is trileaflet. * Aortic valve sclerosis moderate, without significant aortic valvular stenosis. * No aortic regurgitation is present. Pulmonic Valve * The pulmonic valve is not well visualized. Great Vessels * The aortic root is normal size. Pericardium/Pleural * There is no pericardial effusion. Great Vessels * Normal inferior vena cava diameter and respiratory variation suggests normal central venous pressure. MMode 2D Measurements and Calculations IVSd 0.93 cm LVIDd 4.5 cm LVIDs 3.2 cm LVPWd 1.0 cm IVS/LVPW 0.90 FS 29.6 % EDV(Teich) 91.2 ml ESV(Teich) 39.4 ml EF(Teich) 56.8 % EDV(cubed) 89.6 ml ESV(cubed) 31.3 ml EF(cubed) 65.1 % LV mass(C)d 148.2 grams LV mass(C)dI 74.8 grams/m\S\2 SV(Teich) 51.8 ml SI(Teich) 26.1 ml/m\S\2 SV(cubed) 58.3 ml SI(cubed) 29.4 ml/m\S\2 Ao root diam 3.2 cm Ao root area 7.8 cm\S\2 ACS 1.8 cm LA dimension 3.2 cm asc Aorta Diam 3.6 cm LA/Ao 10 LVOT diam 2.0 cm LVOT area 3.1 cm\S\2 LVAd ap4 29.5 cm\S\2 LVLd ap4 8.4 cm EDV(MOD-sp4) 87.7 ml EDV(sp4-el) 87.6 ml LVAs ap4 15.3 cm\S\2 LVLs ap4 6.7 cm ESV(MOD-sp4) 32.7 ml ESV(sp4-el) 29.6 ml EF(MOD-sp4) 62.7 % EF(sp4-el) 66.2 % LVAd ap2 24.0 cm\S\2 LVLd ap2 8.0 cm EDV(MOD-sp2) 62.5 ml EDV(sp2-el) 61.0 ml LVAs ap2 11.7 cm\S\2 LVLs ap2 5.9 cm ESV(MOD-sp2) 20.5 ml ESV(sp2-el) 19.7 ml EF(MOD-sp2) 67.2 % EF(sp2-el) 67.8 % LVLd %diff -4.84 % EDV(MOD-bp) 75.5 ml LVLs %diff -13.64 % ESV(MOD-bp) 27.5 ml EF(MOD-bp) 63.6 % SV(MOD-sp4) 54.9 ml SI(MOD-sp4) 27.7 ml/m\S\2 SV(MOD-sp2) 42.0 ml SI(MOD-sp2) 21.2 ml/m\S\2 SV(MOD-bp) 48.0 ml SI(MOD-bp) 24.2 ml/m\S\2 SV(sp4-el) 57.9 ml SI(sp4-el) 29.2 ml/m\S\2 SV(sp2-el) 41.3 ml SI(sp2-el) 20.9 ml/m\S\2 Doppler Measurements and Calculations MV E max robel 71.8 cm/sec MV A max robel 63.5 cm/sec MV E/A 1.1 MV dec time 0.17 sec Ao V2 max 135.6 cm/sec Ao max PG 7.4 mmHg Ao max PG (full) 3.1 mmHg KINGS(V,A) 2.4 cm\S\2 KINGS(V,D) 2.4 cm\S\2 LV V1 max PG 4.3 mmHg LV V1 max 103.3 cm/sec PA V2 max 111.3 cm/sec PA max PG 5.0 mmHg PA acc slope 327.2 cm/sec\S\2 PA acc time 0.14 sec PI max robel 175.1 cm/sec PI max PG 12.3 mmHg PI dec slope 110.5 cm/sec\S\2 PI P1/2t 464.0 msec PA pr(Accel) 15.6 mmHg
[2016-12-20] MEDS: OXYCODONE HCL 15 MG TABCR (OXYCONTIN) PO SCH (10:07)
[2016-12-20 11:08] VITALS: BP 143/81; PULSE 57; TEMP 36.8; O2SAT 95
--- NOTE | 2016-12-20 11:57 | PROGRESS NOTE ---
DATE: 12/20/2016 CARDIOLOGY CONSULTATION FOLLOWUP NOTE The patient seen and examined. Chart, medications, telemetry reviewed. SUBJECTIVE: The patient denies any further chest pains or discomfort. Notes no dizziness or lightheadedness. Notes no syncope or near syncope. Cardiac enzymes were negative for any injury or infarct. He has been ambulatory in room and wishes to be discharged today. Blood pressures are trending better. PHYSICAL EXAMINATION: VITAL SIGNS: Heart rate is 57, blood pressure is 143/80. NECK: Thin. There is no jugular venous distention. LUNGS: Clear. CARDIOVASCULAR: Regular with normal S1, S2. There is no S3 gallop. Telemetry reveals no arrhythmias. ABDOMEN: Soft, nontender. EXTREMITIES: Without cyanosis, clubbing. There is no peripheral edema. LABORATORY DATA: Echocardiogram today demonstrates mild hypokinesis of the inferior wall with no other changes, moderate aortic sclerosis, preserved LV function, cardiac enzymes since admission have been nondetectable for ischemia or infarct with normal CK and MB fractions as well with normal troponins. DAVEY is pending. INR is 1.6. RECOMMENDATIONS: Continue medication with increased hydralazine to 50 mg a.m. and noon and 25 mg p.m. All other medications to be continued as planned with outpatient followup closely through cardiology and primary care physician. SEUN
--- NOTE | 2016-12-20 13:02 | Progress Note ---
Subjective Date of Service: Dec 20, 2016. Subjective Pt evaluation today including: conversation w/ patient, physical exam, lab review, review of studies, conversation w/ wellness consultant, review of inpatient medication list Saw/examined the patient in room 244 Doing well, no problems/issues to note at this time no chest pain, no shortness of breath Problem List Medical Problems: (1) Chronic pain Status: Acute (2) Hypertension Status: Chronic (3) Intractable pain Status: Acute (4) Renal artery stenosis Status: Acute (5) Unstable angina Status: Acute Review of Systems Constitutional: No chills, No fever Respiratory: No cough, No shortness of breath, No sputum Cardiac: No chest pain (resolved), No edema, No palpitations Abdomen: No diarrhea, No nausea, No pain, No vomiting Heme: No abnormal bleeding/bruising Medications Current Inpatient Medications Medications (Trade) Dose Ordered Sig/Darshan Route Start Time Stop Time Status Last Admin Dose Admin Acetaminophen (Tylenol Tab) 650 mg Q4H PRN PO 12/19/16 14:00 01/18/17 13:59 Ondansetron HCl (Zofran Inj) 4 mg Q6H PRN IV 12/19/16 14:00 01/18/17 13:59 Nitroglycerin (Nitrostat Tab) 0.4 mg UD PRN SL 12/19/16 14:00 01/18/17 13:59 Heparin Sodium (Porcine) (Heparin Sq 5000 Unit/0.5ml) 5,000 unit Q12 SQ 12/19/16 21:00 01/18/17 20:59 12/20/16 09:01 5,000 UNIT Alprazolam (Xanax Tab) 0.25 mg HS PRN PO 12/19/16 14:15 01/18/17 14:14 Amlodipine Besylate (Norvasc Tab) 10 mg HS PO 12/19/16 21:00 01/18/17 20:59 12/19/16 20:37 10 MG Ascorbic Acid (Vitamin C Tab) 500 mg DAILY PO 12/20/16 09:00 01/19/17 08:59 12/20/16 08:49 500 MG Aspirin (Ecotrin Tab) 81 mg DAILY PO 12/20/16 09:00 01/19/17 08:59 12/20/16 08:49 81 MG Atorvastatin Calcium (Lipitor Tab) 80 mg DAILY PO 12/20/16 09:00 01/19/17 08:59 12/20/16 08:49 80 MG Carbidopa/Levodopa (Sinemet 10/ 100MG Tab) 1 tab HS PO 12/19/16 21:00 01/18/17 20:59 12/19/16 20:37 1 TAB Cholecalciferol (Vitamin D Tab) 1,000 inter.unit DAILY PO 12/20/16 09:00 01/19/17 08:59 12/20/16 08:49 1,000 INTER.UNIT Levothyroxine Sodium (Synthroid Tab) 125 mcg DAILYBB PO 12/20/16 06:00 01/19/17 06:59 12/20/16 06:32 125 MCG Losartan Potassium (coZAAR TAB) 50 mg BID PO 12/19/16 21:00 01/18/17 20:59 12/20/16 08:50 50 MG Metoprolol Tartrate (Lopressor Tab) 12.5 mg BID PO 12/19/16 21:00 01/18/17 20:59 12/20/16 08:50 12.5 MG Multivitamins (Multivitamin Tab) 1 tab DAILY PO 12/20/16 09:00 01/19/17 08:59 12/20/16 08:49 1 TAB Pantoprazole Sodium (Protonix Tab) 40 mg DAILY PO 12/20/16 09:00 01/19/17 08:59 12/20/16 08:49 40 MG Warfarin Sodium (Coumadin Tab) 5 mg SuTuWeThSa@1600 PO 12/19/16 16:00 01/18/17 15:59 12/19/16 17:16 5 MG Oxycodone HCl (Oxycontin Tab) 30 mg Q12 PO 12/19/16 21:00 01/02/17 20:59 12/20/16 10:07 30 MG Oxycodone HCl (Roxicodone Immediate Rel Tab) 15 mg QID PO 12/19/16 17:00 01/02/17 16:59 12/20/16 12:25 15 MG Miscellaneous (Iv Fluids Completed) 1 ea PRN PRN N/A 12/19/16 14:30 12/19/17 14:29 Warfarin Sodium (Coumadin Tab) 7.5 mg MoFr@1600 PO 12/21/16 16:00 01/20/17 15:59 Hydralazine HCl (Apresoline Tab) 25 mg Q6 PO 12/19/16 18:00 01/18/17 17:59 12/20/16 12:25 25 MG Objective Vital Signs Date Time Temp Pulse Resp B/P Pulse Ox O2 Delivery O2 Flow Rate FiO2 12/20/16 11:08 36.8 57 20 143/81 95 Room Air 12/20/16 08:00 Room Air 12/20/16 07:20 36.4 54 20 147/75 94 Room Air 12/20/16 06:30 54 161/84 12/20/16 04:03 36.6 52 15 149/81 97 Room Air 12/20/16 04:00 Room Air 12/20/16 00:00 36.7 53 152/90 96 Room Air 12/20/16 00:00 96 Room Air 12/19/16 20:00 36.7 56 18 154/73 94 Room Air 12/19/16 20:00 Room Air 12/19/16 14:48 49 18 150/79 96 Room Air 12/19/16 14:00 51 18 174/84 95 Room Air 12/19/16 13:07 49 16 153/80 95 Room Air 12/19/16 13:00 49 16 151/102 94 Room Air Physical Exam General Appearance: no apparent distress Respiratory/Chest: chest non-tender, lungs clear, normal breath sounds, no respiratory distress, no accessory muscle use Cardiovascular: regular rate, rhythm, no edema, no murmur Extremities: normal inspection, no pedal edema Neurologic/Psychiatric: no motor/sensory deficits, alert, normal mood/affect Laboratory Results Last 24 Hours Test 12/19/16 18:00 12/19/16 18:08 12/20/16 00:00 12/20/16 00:41 Creatine Kinase MB Ratio Creatine Kinase MB 1.6 ng/ml 1.1 ng/ml Troponin I < 0.015 ng/ml < 0.015 ng/ml Test 12/20/16 07:20 White Blood Count 2.53 K/uL Red Blood Count 4.34 M/uL Hemoglobin 13.5 g/dL Hematocrit 39.6 % Mean Corpuscular Volume 91.2 fL Mean Corpuscular Hemoglobin 31.1 pg Mean Corpuscular Hemoglobin Concent 34.1 g/dl RDW Standard Deviation 43.8 fL RDW Coefficient of Variation 12.9 % Platelet Count 116 K/uL Mean Platelet Volume 8.5 fL Prothrombin Time 17.6 SECONDS Prothromb Time International Ratio 1.6 Sodium Level 140 mmol/L Potassium Level 3.8 mmol/L Chloride Level 105 mmol/L Carbon Dioxide Level 29 mmol/L Anion Gap 6.0 mmol/L Blood Urea Nitrogen 19 mg/dl Creatinine 1.10 mg/dl Est Creatinine Clear Calc Drug Dose 59.9 ml/min Estimated GFR () 75.7 Estimated GFR (Non- 65.3 BUN/Creatinine Ratio 17.5 Random Glucose 85 mg/dl Calcium Level 9.5 mg/dl Assessment and Plan This is a 76 year old male with PMH of CAD s/p CABG and PCI, paroxysmal atrial fibrillation on Coumadin, HTN, HLD, CKD stage 3, hypothyroidism presents with chest pain and found to have elevated blood pressure Chest Pain in the setting of known CAD appreciate cardiology input on this case clinically no more chest pain No shortness of breath cardiac enzymes negative x 3 no change on echo no new findings on EKG no need for further testing, outpatient cardiology follow-up HTN uncontrolled appreciate cardiology input max dose of amlodipine, max dose of losartan due to bradycardia, cannot increase b-wilber will increase hydralazine to 50mg in AM, 50mg at noon, and 25mg in the evening Paroxysmal A. Fib continue b-wilber subtherapeutic INR, should have follow-up with Coumadin clinic outpatient PCP follow-up on December 27 @ 10:45AM Hypothyroidism continue Synthroid dose DVT ppx Coumadin FULL CODE
[2016-12-20] MEDS ORDERED: HYDR-4717 PO (13:05)
--- NOTE | 2016-12-20 13:06 | Discharge Instructions ---
Discharge Instructions Date of Service Dec 20, 2016. Admission Reason for Admission: Chest Pain Discharge Discharge Diagnosis / Problem: Chest Pain, possibly related to uncontrolled HTN Discharge Goals Goal(s): Decrease discomfort, Improve function, Diagnostic testing, Therapeutic intervention Activity Recommendations Activity Limitations: resume your previous activity . Instructions / Follow-Up Instructions / Follow-Up Please follow-up with Dr. Garay on December 27 @ 10:45AM * You will be discharged on Hydralazine 50mg in AM, 50mg at noon, and 25mg in the evening * Please take 7.5mg of Coumadin tonight (12/20), then continue as prescribed * See Coumadin clinic early next week to have INR checked * Other medications will stay the same Current Hospital Diet Patient's current hospital diet: AHA Diet (Heart Healthy) Discharge Diet Recommended Diet: AHA Diet (Heart Healthy) Pending Studies Studies pending at discharge: no Medical Emergencies . Who to Call and When: Medical Emergencies: If at any time you feel your situation is an emergency, please call 911 immediately. . Non-Emergent Contact Non-Emergency issues call your: Primary Care Provider, Clinical Program Manager . . "Provider Documentation" section prepared by Cinthya Wiggins. VTE Core Measure Inpt VTE Proph given/why not?: Warfarin (Coumadin)
--- NOTE | 2016-12-20 13:08 | Discharge Summary ---
Discharge Summary Date of Service Dec 20, 2016. Discharge Summary Admission Date: Dec 19, 2016 at 13:58 Discharge Date: Dec 20, 2016 Discharge Disposition: Home Principal Diagnosis: Chest Pain, resolved uncontrolled HTN Paroxysmal Atrial Fibrillation Medication Reconciliation Changed Medications: Hydralazine Hcl (Apresoline) 50 Mg Tab 1 TAB PO TID for 30 Days, #90 TAB 3 Refills (Changed from: Hydralazine Hcl ( Apresoline) 25 Mg Tab 25 Mg PO BID) Please take 1 tablet in AM and at noon, take 0.5 tablets in the PM Continued Medications: Alprazolam (Xanax) 0.25 Mg Tab 0.25 MG PO HS PRN for Sleep Amlodipine (Norvasc) 10 Mg Tab 10 MG PO HS, 0 Refills Ascorbic Acid (Vitamin C) 500 Mg Tab 500 MG PO DAILY Aspirin (Aspirin Ec) 81 Mg Tab 81 MG PO DAILY Atorvastatin (Lipitor) 80 Mg Tab 80 MG PO DAILY Carbidopa/Levodopa (Sinemet 10MG/100MG) Tab 1 TAB PO HS, 0 Refills RESTLESS LEGS Cholecalciferol (Vitamin D) 1,000 Unit Tab 1 TAB PO DAILY Garlic (Garlic) 200 Mg Tab 100 MG PO DAILY Levothyroxine Sodium (Synthroid) 125 Mcg Tab 125 MCG PO DAILY Losartan Potassium (Cozaar) 50 Mg Tab 50 MG PO BID Metoprolol Tartrate (Lopressor) 25 Mg Tab 12.5 MG PO BID Misc Natural Products (Narcosoft Herbal Lax) 1 Cap Cap 1 TAB PO DAILY Multiple Vitamin (Multivitamin) 1 Tab Tab 1 TAB PO DAILY Nitroglycerin (Nitrostat) 0.4 Mg Tab 0.4 MG UT UD PRN for Chest Pain Oxycodone HCl (Oxycodone HCl ER) 30 Mg Tab 1 TAB PO BID Oxycodone Immediate Rel Tab (Roxicodone Ir) 5 Mg Tab 15 MG PO Q6H PRN for Pain, TAB Pantoprazole (Pantoprazole Sodium) 40 Mg Tab 40 MG PO DAILY Warfarin Sodium (Coumadin) 5 Mg Tab 7.5 MG PO UD, TAB Take 7.5mg PO daily on Saturday and Saturday; Take 5mg PO daily all other days Admission Information HPI (per Admitting provider): This is a 76 y/o male with PMHx of CAD s/p CABG, PAF on Coumadin, CKD stage 3, HTN, Dyslipidemia and other problems as outlined below who presents to the ED from the cardiology office with complaints of chest discomfort. Pt reports that 4 days ago he developed 2/10 central chest pain while sitting watching TV. The discomfort lasted about 10 minutes before resolving without intervention. The next day, patient developed similar chest discomfort as he was walking to a concert and it persisted for the entire performance (about 75 mins). Two days ago, patient was walking up a slight incline and after about 500 yds he developed 8/10 L chest pain that radiated down his L arm. He did not have his nitro on him and the severe pain persisted for about 30 minutes before resolving. Yesterday evening into this morning he developed a "hollow" feeling in his chest that "doesn't feel right". Pt has a history of chronic exertional angina. The chest discomfort he describes over the last several days is more intense and occurring with minimal exertion compared to his prior long-standing stable exertional chest discomfort. Pt has a history of CAD s/p CABG x 3 in 2004 at [facility] as well as one stent place in 2009. Cardiac cath in 2014 showed non-obstructive CAD that was managed medically. Pt was seen by cardiology (Dr. Hanks) in the office this morning. They recommended pt go to the ED for further evaluation. The patient has had issues with chronic pain due to his generalized neuropathy. He takes OxyContin as well as Oxycodone IR and follows with pain mgmt in [place]. Pt denies fever/chills, diaphoresis, SOB, abd pain, N/V, bowel or bladder issues , LE edema ,calf pain, lightheadedness/dizziness. In the ED, pt is bradycardic with elevated blood pressure. INR 1.6. CXR negative. Initial trop is negative and EKG shows bradycardia with 1* AV block and age indeterminate septal infarct. Pt is currently chest pain free and will be admitted for further evaluation and treatment. Physical Exam (per Admitting): General Appearance: WD/WN, no apparent distress, + pertinent finding (Pt is sitting up in bed with at bedside) Head: normocephalic, atraumatic Eyes: normal inspection ENT: hearing grossly normal Neck: supple Respiratory/Chest: chest non-tender, lungs clear, normal breath sounds, no respiratory distress Cardiovascular: regular rate, rhythm, no edema, no murmur Abdomen/GI: normal bowel sounds, non tender, soft Back: normal inspection Extremities/Musculoskelatal: normal inspection, no calf tenderness, no pedal edema Neurologic/Psych: alert, normal mood/affect, oriented x 3 Skin: normal color, warm/dry Hospital Course This is a 76 year old male with PMH of CAD s/p CABG and PCI, paroxysmal atrial fibrillation on Coumadin, HTN, HLD, CKD stage 3, hypothyroidism presents with chest pain and found to have elevated blood pressure Chest Pain in the setting of known CAD appreciate cardiology input on this case clinically no more chest pain No shortness of breath cardiac enzymes negative x 3 no change on echo no new findings on EKG no need for further testing, outpatient cardiology follow-up HTN uncontrolled appreciate cardiology input max dose of amlodipine, max dose of losartan due to bradycardia, cannot increase b-wilber will increase hydralazine to 50mg in AM, 50mg at noon, and 25mg in the evening Paroxysmal A. Fib continue b-wilber subtherapeutic INR, should have follow-up with Coumadin clinic outpatient PCP follow-up on December 27 @ 10:45AM Hypothyroidism continue Synthroid dose DVT ppx Coumadin FULL CODE Total time spent on discharge = 25 minutes This includes examination of the patient, discharge planning, medication reconciliation, and communication with other providers. Discharge Instructions Please follow-up with Dr. Garay on December 27 @ 10:45AM * You will be discharged on Hydralazine 50mg in AM, 50mg at noon, and 25mg in the evening * Please take 7.5mg of Coumadin tonight (12/20), then continue as prescribed * See Coumadin clinic early next week to have INR checked * Other medications will stay the same
[2016-12-20 13:30] VITALS: BP 143/81; PULSE 57; TEMP 36.8; O2SAT 95
[2016-12-21] MEDS ORDERED: WARFARIN SOD 7.5 MG TAB PO SCH (16:00)
== END 2016-12-20 13:58 | disposition home or self-care (01) ==
LOC: ENRESERVDT → ENRESERVTM → C.EDB 11:19 → C.2T 13:58
PROVIDERS: ADMIT Hospitalist; ATTEND Family Medicine
DX: R07.9 Chest pain, unspecified (principal); I12.9 Hypertensive chronic kidney disease with stage 1 through stage 4 chronic kidney disease, or unspecified chronic kidney disease; I48.0 Paroxysmal atrial fibrillation; N40.0 Benign prostatic hyperplasia without lower urinary tract symptoms; N18.3 Chronic kidney disease, stage 3 (moderate); E78.5 Hyperlipidemia, unspecified; E03.9 Hypothyroidism, unspecified; G62.9 Polyneuropathy, unspecified; I25.10 Atherosclerotic heart disease of native coronary artery without angina pectoris; Z86.718 Personal history of other venous thrombosis and embolism; Z83.3 Family history of diabetes mellitus; Z82.49 Family history of ischemic heart disease and other diseases of the circulatory system; Z83.79 Family history of other diseases of the digestive system; Z87.891 Personal history of nicotine dependence; Z79.82 Long term (current) use of aspirin; Z79.899 Other long term (current) drug therapy; Z95.1 Presence of aortocoronary bypass graft; Z79.01 Long term (current) use of anticoagulants

== ENCOUNTER 2019-06-12 17:31 | Inpatient (IN) ==
--- OUTSIDE RECORDS SUMMARY | 2019-06-12 17:34 | External Medical Summary | Continuity of Care Document ---
:1940 Author Name Zahra England, Provider Address Unavailable Unavailable , Care Team Providers Name Role Phone Reilly England, Provider Unavailable [email or web address]., Parvez Doe Unavailable [email or web address] Ritter WEN Unavailable [email or web address] Alexis England Unavailable [email or web address] ALEXIS England, S Unavailable Unavailable REINALDO MURCIA Unavailable Unavailable Unavailable Unavailable Unavailable Problems Arthritis (716.90) (M19.90) Anemia of chronic disease (285.29) (D63.8) A-fib (427.31) (I48.91) Lumbosacral radiculopathy at S1 (724.4) (M54.17) Restless legs (333.94) (G25.81) Peripheral neuropathy (356.9) (G62.9) Opioid dependence (304.00) (F11.20) Pain, joint, hand, left (719.44) (M25.542) Hypertension (401.9) (I10) Insomnia (780.52) (G47.00) End stage renal disease (585.6) (N18.6) Testosterone deficiency (259.9) (E34.9) Hypothyroidism (244.9) (E03.9) Coronary artery disease (414.00) (I25.10) Carpal tunnel syndrome of left wrist (354.0) (G56.02) Allergies and Adverse Reactions ART Inhibitors (Allergy) Reaction: Cough Isosorbide Mononitrate TABS (Allergy) Re action: Headache Morphine Derivatives (Allergy) Reaction: Headache Nitrates, Organic (Allergy) Pseudoephedrine TABS (Allergy) Reaction: Tremor terazosin (Allergy) Reaction: Rash Medications Losartan Potassium 50 MG Oral Tablet; TAKE 1 TABLET TWICE DA AMARIS. Quantity: 180 Refills: 3 hydrALAZINE HCl - 25 MG Oral Tablet; TAKE 1 TABLET TWICE DANIE LY. Refills: 0 Atorvastatin Calcium 80 MG Oral Tablet; TAKE 1 TABLET DAILY. Samanta Tillman Quantity: 30 Refills: 5 Carbidopa-Levodopa 10-100 MG Oral Tablet; 1-2 tablets daily Refills: 0 Pantoprazole Sodium 40 MG Oral Tablet Delayed Release; TAKE 1 TABLET DAILY. Samanta Tillman Start: 21-Feb-2016 Quantity: 90 Refills: 1 oxyCODONE HCl - 5 MG Oral Tablet; TAKE 1 /2-1 TABLET EVERY 6 HOURS NEEDED FOR CHRONIC PAIN. Samanta Tillman Start: 26-Jan-2016 Quantity: 28 Refills: 0 Metoprolol Tartrate 25 MG Oral Tablet; TAKE 0.5 TABLET Twice daily Samanta Tillman Quantity: 90 Refills: 4 Warfarin Sodium 5 MG Oral Tablet; TAKE O NE AND ONE HALF TABLETS(7.5MG) SATURDAY, SATURDAY, SATURDAY, AND ONE TABLET (5MG) ALL OTHER DAYS OR DIRECTED BY ANTICOAGULATION CLINIC Samanta Tillman Quantity: 90 Refills: 1 Aspirin 81 MG TABS; TAKE 1 TABLET DAILY. Refills: 0 Vitamin D3 25 MCG (1000 UT) Oral Capsule; 1 capsule daily Quantity: 30 Refills: 5 Multi-Vitamin TABS Refills: 0 amLODIPine Besylate 10 MG Oral Tablet; TAKE 1 TABLET D AILY. Deandre M.D. SepGetachew Quantity: 30 Refills: 11 Stool Softener TABS Refills: 0 Testosterone 50 MG/5GM (1%) Transdermal Gel; APPLY 1 PACKET ONE TIME DAILY DIRECTED Samanta Tillman 5 GM Package Quantity: 90 Refills: 0 Levothyroxine Sodium 125 MCG Oral Tablet; TAKE 1 TABLET JAVIER Y. Quantity: 30 Refills: 5 traZODone HCl - 50 MG Oral Tablet; TAKE 1 TABLET AT BE DTIME NEEDED. Samanta Tillman Start: 05-Jun-2016 Quantity: 30 Refills: 3 ALPRAZolam 0.25 MG Oral Tablet; 1-2 tablets at night BEHZAD Contreras Quantity: 45 Refills: 1 Vitamin C 1000 MG Oral Tablet; TAKE 1 TABLET DAILY. Refills: 0 Garlic TABS; TAKE DIRECTED. Refills: 0 Potassium 99 MG Oral Tablet; Twice daily Refills: 0 Procedures History of Hemorrhoidectomy Status: Comp leted History of Appendectomy Status: Complete d History of Shoulder Surgery Status: Comp leted History of Back Surgery Status: Complete d History of Transurethral Resection Of Prostate (TURP) Status: Completed History of Heart Surgery Status: Complet ed Immunizations Pneumococcal polysaccharide vaccine, 23 valent On: 7 Family History Father Family history of myocardial infarction (V17.3) (Z82.49) Sta tus: Active Mother Family history of Colon cancer (153.9) (C18.9) Status: Activ e Social History - Smoking Status Former smoker Plan of Treatment Planned Observations Planned Goals not documented Results No Known Results Results not documented
[2019-06-12] MEDS ORDERED: ONDANSETRON INJ 2 MG/ML 2 ML VIAL IV STA (18:11)
[2019-06-12] MEDS ORDERED: MoRPHine SULFATE 10 MG/ML CARP/VIAL IV STA (18:11)
[2019-06-12 18:30] LABS: Basophils # (auto) 0.03 K/uL (0-0.2); Basophils % (auto) 0.6 %; Eosinophils # (auto) 0.03 K/uL (0-0.5); Eosinophils % (auto) 0.6 %; Hematocrit (blood only) 21.2 % (42-52); Immature Granulocytes # (auto) 0.01 K/uL (0.00-0.02); Immature Granulocytes % (auto) 0.2 %; Lymphocytes # (auto) 0.63 K/uL (1.2-3.4); Lymphocytes % (auto) 11.6 %; Mean Corpuscular Hemoglobin 29.5 pg (25-34); Mean Corpuscular Volume 89.5 fL (80-100); Mean Platelet Volume 8.7 fL (7.4-10.4); Monocytes # (auto) 0.32 K/uL (0.11-0.59); Monocytes % (auto) 5.9 %; Neutrophils # (auto) 4.39 K/uL (1.4-6.5); Neutrophils % (auto) 81.1 %; Platelet Count 220 K/uL (130-400); RDW Coefficient of Variation 14.3 % (11.5-14.5); RDW Standard Deviation 46.6 fL (36.4-46.3); Red Blood Count 2.37 M/uL (4.7-6.1); White Blood Count 5.41 K/uL (4.8-10.8)
[2019-06-12 18:49] LABS: RBC Morphology Unremarkable
[2019-06-12 18:51] LABS: Partial Thromboplastin Ratio 1.9
[2019-06-12 18:54] LABS: INR 3.6 (0.9-1.1)
[2019-06-12 18:55] LABS: Alanine Aminotransferase 28 U/L (12-78); Albumin Level 3.3 gm/dl (3.4-5.0); Aspartate Aminotransferase 33 U/L (15-37); BUN Creatinine Ratio 16.9 (10-20); Blood Urea Nitrogen 25 mg/dl (7-18); Calcium 8.8 mg/dl (8.5-10.1); Carbon Dioxide 27 mmol/L (21-32); Chloride 101 mmol/L (98-107); Est GFR (African American) 51.3; Est GFR (Non-African American) 44.3; Glucose 101 mg/dl (70-99); Partial Thromboplastin Time 50.3 Seconds (21.0-31.0); Potassium 4.6 mmol/L (3.5-5.1); Sodium 134 mmol/L (136-145)
[2019-06-12 18:58] LABS: Albumin Globulin Ratio 1.1 (0.9-2); Alkaline Phosphatase 89 U/L (45-117); Bilirubin,Total 1.2 mg/dl (0.2-1); Total Protein 6.3 gm/dl (6.4-8.2)
--- NOTE | 2019-06-12 19:10 | CT Scan Report ---
RIGHT FEMUR CT, RIGHT TIBIA/FIBULAR CT CT DOSE: 612.97 mGy.cm HISTORY: Right leg ecchymosis eval for hematoma TECHNIQUE: Multiaxial CT images of the right femur and right tibia/fibula were performed and reformat hayden in the sagittal and coronal plane without the use of contrast. A dose lowering technique was uti lized adhering to the principles of ALARA. COMPARISON: None. FINDINGS: There is a large mixed density abnormality within the right semimembranosus muscle which me asures 20 cm in length and up to 7.6 cm in diameter. This demonstrates a hematocrit level and is cons istent with an intramuscular hematoma. No fracture or dislocation within the right hip, right femur, right tibia, right fibula. Mild vascular calcifications are noted. Mild subcutaneous edema within the lateral aspect of the right hip. This also subcutaneous edema throughout the right lower leg and ank le. Soft tissue hematoma within the right lower leg. IMPRESSION: 1. A large intramuscular hematoma within the right semimembranosus muscle measuring 20 cm in length. 2. No fractures within the right femur right lower leg. Electronically signed by: Philippe Reina M.D. 06/12/2019 7:09 PM
[2019-06-12] MEDS ORDERED: SODIUM CHLORIDE 0.9% 250 ML IV PRN ×4 (19:16→22:29)
[2019-06-12] MEDS ORDERED: PHYTONADIONE 5 MG in SODIUM CHLORIDE 0.9% 50 ML IV ONE (19:16)
--- NOTE | 2019-06-12 20:08 | Emergency Department Note ---
Entered by Christine Bah acting as a scribe for History of Present Illness General Chief complaint: Leg Injury/Pain Stated complaint: RT HAMSTRING PAIN Source: patient History of Present Illness Onset (ago): week(s) 1 Location: lower extremity and right Pain Consistency: + other (persistent ) Maximum Pain Intensity: 7 Quality: + other (pain and bruising ) Exacerbated By: + movement Associated symptoms: + other (positive swelling; positive bruising; negative other bleeding) Treatments prior to arrival: cold therapy The patient is a 78 year old male with a PMHx of HTN, Afib, hypothyroidism, CKD, DVT, and CABG who presents to the Emergency Room with complaints of persistent right leg pain and bruising that began about one week prior to arrival. The patient states that he was getting out of the car, twisted this leg, and felt a cramp in this leg. He states that he then put some cream on this and over the next few days noticed swelling and bruising to the back of his leg. The patient states that his pain is exacerbated by movement. The patient states that he used ice for his symptoms. He denies any other bleeding. The patient states that he is on Coumadin for atrial fibrillation. The patient states that he went to the walk in clinic at [facility] and was told to come to the ED to possibly get an MRI. The patient states that his coumadin level was last checked about 4 weeks ago and states that it was about 3.0 at this time. The patient states that he is on morphine regularly for his chronic pain. Home Medications Home Medications Medication Instructions Recorded Confirmed Type Herbal Laxitive 1 tab PO DAILY 11/26/18 11/26/18 History amlodipine [Norvasc] 10 mg PO DAILY 11/26/18 11/26/18 History ascorbic acid (vitamin C) [Vitamin 100 mg PO BID 11/26/18 11/26/18 History C] aspirin [Aspir-81] 81 mg PO DAILY 11/26/18 11/26/18 History atorvastatin [Lipitor] 80 mg PO HS 11/26/18 11/26/18 History cholecalciferol (vitamin D3) 1,000 unit PO DAILY 11/26/18 11/26/18 History [Vitamin D3] garlic 100 mg PO QPM 11/26/18 11/26/18 History garlic 200 mg PO QAM 11/26/18 11/26/18 History hydralazine 50 mg PO TID 11/26/18 11/26/18 History levothyroxine 125 mcg PO DAILY 11/26/18 11/26/18 History losartan [Cozaar] 50 mg PO BID 11/26/18 11/26/18 History metoprolol succinate [Toprol XL] 12.5 mg PO BID 11/26/18 11/26/18 History morphine [MS Contin] 60 mg PO BID 11/26/18 11/26/18 History multivitamin 1 tab PO DAILY 11/26/18 11/26/18 History nitroglycerin [Nitrostat] 0.4 mg SUBLINGUAL UD PRN 11/26/18 11/26/18 History pantoprazole [Protonix] 40 mg PO BID 11/26/18 11/26/18 History warfarin [Coumadin] 5 - 7.5 mg PO UD 11/26/18 11/26/18 History Allergies Allergy/AdvReac Type Severity Reaction Status Date / Time terazosin Allergy Intermediate RASH Verified 11/26/18 23:08 pseudoephedrine Allergy Unknown UKN Verified 11/26/18 23:08 ART Inhibitors AdvReac Mild COUGH Verified 11/26/18 23:08 isosorbide AdvReac Mild HAWKINS Verified 11/26/18 23:08 Nitrate Analogues AdvReac Mild ORAL Verified 11/26/18 23:08 NITRATES=HAWKINS Past Med/Surg History Medical History Anginal pain (Chronic) Hypertension (Chronic) Atrial fibrillation (Chronic) Chronic ischemic heart disease (Chronic) Peripheral neuropathy (Chronic) History of peptic ulcer (Chronic) Hypothyroidism (Chronic) CKD (chronic kidney disease), stage III (Chronic) Dyslipidemia (Chronic) Sleep apnea (Chronic) BPH (benign prostatic hypertrophy) (Chronic) "s/p TURP 11/2010" History of DVT (deep vein thrombosis) (Chronic) "06/2012- left upper extremity" PAF (paroxysmal atrial fibrillation) (Chronic) Chest pain Surgical History H/O heart artery stent (Chronic) S/P CABG (coronary artery bypass graft) (Chronic) "2003- CABG x 3" S/P appendectomy (Chronic) S/P hemorrhoidectomy (Chronic) H/O shoulder surgery (Chronic) S/P lumbar spinal fusion (Chronic) S/P TURP (transurethral resection of prostate) (Chronic) H/O colonoscopy (Chronic) H/O esophagogastroduodenoscopy (Chronic) Family History Other No pertinent family history in first degree relatives Social History Preferred Language: Setswana Feels Safe at Home: Yes Smoking Status: Never smoker Review of Systems See HPI for pertinent positives & negatives. and A total of 10 systems reviewed and were otherwise negative Physical Exam Vital Signs Vital Signs - 24 hr 06/12/19 17:36 06/12/19 18:50 Temperature 36.4 C L Temperature Source Oral Sepsis Recent Fever Within 48 Hours No Sepsis New/Unexplained Change in Mental Status No Sepsis Action Taken by Nursing No Action Required Pulse Rate 72 Pulse Rate [Apical] 69 Respiratory Rate 20 18 Blood Pressure 124/64 Blood Pressure [Left Arm] 126/54 L Blood Pressure Mean 84 Blood Pressure Mean [Left Arm] 78 Blood Pressure Position Sitting Pulse Oximetry 100 99 Oxygen Delivery Method Room Air Constitutional: Vital signs reviewed. Eyes: Pupils are equal round reactive to light. Conjunctiva are noninjected. ENT: Pharynx is clear without erythema or exudate. Mucous membranes are moist. Neck supple without meningeal signs. Respiratory: Clear to auscultation bilaterally. Breath sounds are equal bilaterally. Cardiovascular: Regular rate and rhythm. No rubs or gallops. GI: Soft, nondistended and nontender. Bowel sounds are present. Musculoskeletal: Diffuse edema to the right lower extremity. Ecchymosis from the posterior mid thigh down to the ankle. Palpable DP pulse. NVI. Tenderness to the mid thigh with difficulty bending the knee. Integumentary: No cyanosis. Neurological: The patient is awake and alert. No focal deficits. Psychiatric: Normal affect. Course 175: Past medical records reviewed. The patient was evaluated in room C2B. A complete history and physical exam was performed. 1918: I discussed the case with Dr. Beauchamp-[facility] Pathology who recommends treating the patient with 5 mg of vitamin K. I talked to the patient about his test results and obtained informed consent for transfusion and recommended hospitalization. The patient states that his pain is a little better. He denies having chest pain or shortness of breath, but states that he gets lightheaded sometimes. The patient states that he last took his coumadin last night. Dr. Jean-Baptiste-[facility] Hospitalist was made aware of the patient for further evaluation. 2005: I discussed the case with the hospitalist Dr. Jean-Baptiste. The patient just had his blood drawn for the type and cross. Consultations Consultation #1: I discussed the case with Dr. Beauchamp-[facility] Pathology who recommends treating the patient with 5 mg of vitamin K Time: : Administered Medications Discontinued Medications Morphine Sulfate (Morphine Sulfate) 6 mg IV NOW STA Stop: 06/12/19 18:12 Last Admin: 06/12/19 18:21 Dose: 6 mg Documented by: [id number] Ondansetron HCl (Zofran) 4 mg IV NOW STA Stop: 06/12/19 18:12 Last Admin: 06/12/19 18:21 Dose: 4 mg Documented by: [id number] Medical Decision Making Differential Diagnosis Differential diagnoses include hematoma, supratherapeutic INR, anemia, hamstring tear, compartment syndrome, and others were considered. Medical Records Attestation: I reviewed the patient's medical records. Home Medications Current Medication List: was personally reviewed by me Laboratory Data Attestation: I reviewed the patient's lab results. Result diagrams: 06/12/19 18:14 06/12/19 18:14 Lab Results 06/12/19 06/12/19 06/12/19 Range/Units 18:14 18:14 18:14 WBC 5.41 (4.8-10.8) K/uL RBC 2.37 L (4.7-6.1) M/uL Hgb 7.0 L (14.0-18.0) g/dL Hct 21.2 L (42-52) % MCV 89.5 (80-100) fL MCH 29.5 (25-34) pg MCHC 33.0 (32-36) g/dL RDW Std Deviation 46.6 H (36.4-46.3) fL RDW Coeff of Fatemeh 14.3 (11.5-14.5) % Plt Count 220 (130-400) K/uL MPV 8.7 (7.4-10.4) fL Immature Gran % (Auto) 0.2 % Neut % (Auto) 81.1 % Lymph % (Auto) 11.6 % Lander % (Auto) 5.9 % Eos % (Auto) 0.6 % Baso % (Auto) 0.6 % Immature Gran # (Auto) 0.01 (0.00-0.02) K/uL Neut # (Auto) 4.39 (1.4-6.5) K/uL Lymph # (Auto) 0.63 L (1.2-3.4) K/uL Lander # (Auto) 0.32 (0.11-0.59) K/uL Eos # (Auto) 0.03 (0-0.5) K/uL Baso # (Auto) 0.03 (0-0.2) K/uL RBC Morphology Unremarkable PT 34.0 H (9.0-12.0) Seconds INR 3.6 H (0.9-1.1) APTT 50.3 H* (21.0-31.0) Seconds PTT Ratio 1.9 Sodium 134 L (136-145) mmol/L Potassium 4.6 (3.5-5.1) mmol/L Chloride 101 (98-107) mmol/L Carbon Dioxide 27 (21-32) mmol/L Anion Gap 7.0 (3-11) BUN 25 H (7-18) mg/dl Creatinine 1.50 H (0.6-1.4) mg/dl Est Cr Clr Drug Dosing Not Reportable Est GFR ( Amer) 51.3 Est GFR (Non-Af Amer) 44.3 BUN/Creatinine Ratio 16.9 (10-20) Glucose 101 H (70-99) mg/dl Calcium 8.8 (8.5-10.1) mg/dl Total Bilirubin 1.2 H (0.2-1) mg/dl AST 33 (15-37) U/L ALT 28 (12-78) U/L Alkaline Phosphatase 89 (45-117) U/L Total Protein 6.3 L (6.4-8.2) gm/dl Albumin 3.3 L (3.4-5.0) gm/dl Globulin 3.0 (2.5-4.0) gm/dl Albumin/Globulin Ratio 1.1 (0.9-2) Crossmatch 06/12/19 Range/Units 19:42 WBC (4.8-10.8) K/uL RBC (4.7-6.1) M/uL Hgb (14.0-18.0) g/dL Hct (42-52) % MCV (80-100) fL MCH (25-34) pg MCHC (32-36) g/dL RDW Std Deviation (36.4-46.3) fL RDW Coeff of Fatemeh (11.5-14.5) % Plt Count (130-400) K/uL MPV (7.4-10.4) fL Immature Gran % (Auto) % Neut % (Auto) % Lymph % (Auto) % Lander % (Auto) % Eos % (Auto) % Baso % (Auto) % Immature Gran # (Auto) (0.00-0.02) K/uL Neut # (Auto) (1.4-6.5) K/uL Lymph # (Auto) (1.2-3.4) K/uL Lander # (Auto) (0.11-0.59) K/uL Eos # (Auto) (0-0.5) K/uL Baso # (Auto) (0-0.2) K/uL RBC Morphology PT (9.0-12.0) Seconds INR (0.9-1.1) APTT (21.0-31.0) Seconds PTT Ratio Sodium (136-145) mmol/L Potassium (3.5-5.1) mmol/L Chloride (98-107) mmol/L Carbon Dioxide (21-32) mmol/L Anion Gap (3-11) BUN (7-18) mg/dl Creatinine (0.6-1.4) mg/dl Est Cr Clr Drug Dosing Est GFR ( Amer) Est GFR (Non-Af Amer) BUN/Creatinine Ratio (10-20) Glucose (70-99) mg/dl Calcium (8.5-10.1) mg/dl Total Bilirubin (0.2-1) mg/dl AST (15-37) U/L ALT (12-78) U/L Alkaline Phosphatase (45-117) U/L Total Protein (6.4-8.2) gm/dl Albumin (3.4-5.0) gm/dl Globulin (2.5-4.0) gm/dl Albumin/Globulin Ratio (0.9-2) Crossmatch See Detail Imaging Data Radiologist's Impression: Radiology results as stated below per my review and the radiologist's interpretation: RIGHT FEMUR CT, RIGHT TIBIA/FIBULAR CT CT DOSE: 612.97 mGy.cm HISTORY: Right leg ecchymosis eval for hematoma TECHNIQUE: Multiaxial CT images of the right femur and right tibia/fibula were performed and reformatted in the sagittal and coronal plane without the use of contrast. A dose lowering technique was utilized adhering to the principles of ALARA. COMPARISON: None. FINDINGS: There is a large mixed density abnormality within the right semimembranosus muscle which measures 20 cm in length and up to 7.6 cm in diameter. This demonstrates a hematocrit level and is consistent with an intramuscular hematoma. No fracture or dislocation within the right hip, right femur, right tibia, right fibula. Mild vascular calcifications are noted. Mild subcutaneous edema within the lateral aspect of the right hip. This also subcutaneous edema throughout the right lower leg and ankle. Soft tissue hematoma within the right lower leg. IMPRESSION: 1. A large intramuscular hematoma within the right semimembranosus muscle measuring 20 cm in length. 2. No fractures within the right femur right lower leg. Electronically signed by: Philippe Reina M.D. 06/12/2019 7:09 PM Blood Pressure Blood Pressure Findings: Elevated blood pressure Blood Pressure Disposition: elevated BP felt to be situational MDM Narrative I did evaluate the patient as noted above. Patient is presenting with right leg pain. He appears to have a hematoma there. He believes that he pulled his hamstring muscle and has developed a hematoma over the past week. On exam he has no signs of compartment syndrome. He is neurovascular intact although he has significant difficulty bending the knee either from the hamstring tear or due to pain. IV access was established. The patient was placed on a continuous threat monitoring analyst. I did treat the patient with IV morphine and Zofran. I did order and review the patient's blood work as noted in the electronic medical record. INR is 3.6. Hemoglobin is down to 7. He does have chronic kidney disease as well with a creatinine of 1.5. I did order a CT of the right leg. I did review the images myself as well as the radiology report as described above. He does have a large hematoma as described above. I did discuss the test results with the patient. He is still having pain but states he feels better. I did discuss the case with Dr. Arely malave who recommended 5 mg of IV vitamin K w hich I did order for him. I did discuss transfusion with him and he was agreeable and signed informed consent. I did order 2 units of typed and crossed blood. I did discuss the case with the hospitalist and case resource manager. Impression & Plan Symptomatic anemia, Supratherapeutic INR, Hematoma of right lower extremity Critical Care Time Total Critical Care Time: 35 I have personally spent approximately 35 minutes of critical care time in the direct management of this patient. This includes bedside care, interpretation of diagnostic studies, and testing, discussion with consultants, patient, and family members, and other required patient management activities. These minutes are in excess of all separately billable procedures. Discharge Plan Visit Data Chief Complaint: Leg Injury/Pain Stated Complaint: RT HAMSTRING PAIN ED Provider: Cristian Mcgregor Discharge Problem: Symptomatic anemia, Supratherapeutic INR, Hematoma of right lower extremity Patient Disposition: Being Evaluated by Hospitalist Forms Stand Alone Forms: [facility] Prescriptions Prescriptions: No Action multivitamin Tablet 1 tab PO DAILY RF: 0 losartan [Cozaar] 50 mg tablet 50 mg PO BID RF: 0 atorvastatin [Lipitor] 80 mg tablet 80 mg PO HS RF: 0 ascorbic acid (vitamin C) [Vitamin C] 1,000 mg Tablet 100 mg PO BID RF: 0 garlic 100 mg Tablet 100 mg PO QPM RF: 0 garlic 100 mg Tablet 200 mg PO QAM RF: 0 aspirin [Aspir-81] 81 mg Tablet,Delayed Release (Dr/Ec) 81 mg PO DAILY RF: 0 morphine [MS Contin] 60 mg tablet extended release 60 mg PO BID RF: 0 amlodipine [Norvasc] 10 mg tablet 10 mg PO DAILY RF: 0 pantoprazole [Protonix] 40 mg tablet,delayed release (DR/EC) 40 mg PO BID RF: 0 levothyroxine 125 mcg tablet 125 mcg PO DAILY RF: 0 warfarin [Coumadin] 5 mg tablet 5 - 7.5 mg PO UD RF: 0 nitroglycerin [Nitrostat] 0.4 mg Tablet, Sublingual 0.4 mg sublingual UD PRN (Reason: Chest Pain) RF: 0 hydralazine 50 mg tablet 50 mg PO TID RF: 0 metoprolol succinate [Toprol XL] 25 mg tablet extended release 24 hr 12.5 mg PO BID RF: 0 cholecalciferol (vitamin D3) [Vitamin D3] 1,000 unit Capsule 1,000 unit PO DAILY RF: 0 Herbal Laxitive 1 tab PO DAILY RF: 0 Referrals Referrals: Yi Alvares MD [Primary Care Provider] - Discharge Problem: Hematoma of right lower extremity Qualifiers: Encounter type: initial encounter Qualified Code(s): S80.11XA - Contusion of right lower leg, initial encounter The scribe's documentation has been prepared under my direction and personally reviewed by me in its entirety. I confirm that the note above accurately reflects all work, treatment, procedures, and medical decision making performed by me.
--- NOTE | 2019-06-12 20:55 | History & Physical Report ---
Date of Service June 12, 2019 Assessment & Plan (1) Symptomatic anemia: - anemia secondary to active bleeding into right semimembranosus muscle - transfusing 1 unit - repeat CBC in AM to monitor Hg/Hct - continuing home aspirin due to patient's hx of CABG and stent placement (2) Hematoma of right lower extremity: - CT right femur showed 20 cm hematoma within semimembranosus muscle - prominent medial thigh bruising - monitoring strength and pain levels for compartment syndrome - holding warfarin in the interim (3) Hypertension: - continued home doses of metoprolol, amlodipine, losartan - holding home hydralazine (4) Atrial fibrillation: - hx paroxysmal Afib - pt's heart rhythm currently sinus - holding warfarin until INR resumes therapeutic range (5) CKD (chronic kidney disease), stage III: - Cr elevated at 1.50 however this seems to be near his baseline of 1.42 in november 2018 - will monitor with BMP in AM - renal dosing for all medications History of Present Illness Chief Complaint: Right leg pain Primary Care Provider: Yi Alvares MD 78 yo M with extensive PMH including paroxysmal Afib, HTN, CKD, hx CABG, chronic pain who presented to the ED after 1 week of right thigh pain. Patient felt a sharp pulling sensation 1 week ago while getting out of the car, went about his day after treating it with ice and rest. A few days later noticed bruising startin on the posterior thigh, and multiple days later pain was still present and gradually getting worse. [facility], at which they told him to come to the ED. He is on warfarin for paroxysmal Afib, was found to have a supratherapeutic INR of 3.5 in the ED as well as a Hg of 7.0. CT of right femur shows 20 cm hematoma in semimembranosus muscle with surrounding edema. He describes the pain as a constant 6/10 laying in bed, with spikes up to 9/10 when he tries to move or use the right leg or thigh. Patient denies symptoms of shortness of breath, trouble breathing, general malaise or fatigue. He says his last INR check a month ago was closer to 2.6 which is where he normally is. Allergies Allergy/AdvReac Type Severity Reaction Status Date / Time terazosin Allergy Intermediate RASH Verified 06/12/19 21:12 pseudoephedrine Allergy Unknown Unknown Verified 06/12/19 21:12 ART Inhibitors AdvReac Mild COUGH Verified 06/12/19 21:12 isosorbide AdvReac Mild Headache Verified 06/12/19 21:12 Nitrate Analogues AdvReac Mild Headache Verified 06/12/19 21:12 Home Medications Home Medications Medication Instructions Recorded Confirmed Type Herbal Laxitive 2 tab PO DAILY 11/26/18 06/12/19 History amlodipine [Norvasc] 10 mg PO QPM 11/26/18 06/12/19 History aspirin [Aspir-81] 81 mg PO QAM 11/26/18 06/12/19 History atorvastatin [Lipitor] 80 mg PO HS 11/26/18 06/12/19 History cholecalciferol (vitamin D3) 1,000 unit PO QAM 11/26/18 06/12/19 History [Vitamin D3] hydralazine 50 mg PO BID 11/26/18 06/12/19 History levothyroxine 125 mcg PO QAM 11/26/18 06/12/19 History losartan [Cozaar] 50 mg PO BID 11/26/18 06/12/19 History metoprolol succinate [Toprol XL] 12.5 mg PO BID 11/26/18 06/12/19 History multivitamin 1 tab PO QAM 11/26/18 06/12/19 History nitroglycerin [Nitrostat] 0.4 mg SUBLINGUAL DIRECTED PRN 11/26/18 06/12/19 History pantoprazole [Protonix] 40 mg PO QAM 11/26/18 06/12/19 History ascorbic acid (vitamin C) 1,000 mg PO BID 06/12/19 06/12/19 History cyclobenzaprine 10 mg PO BID PRN 06/12/19 06/12/19 History garlic 500 mg PO BID 06/12/19 06/12/19 History morphine 60 mg PO BID 06/12/19 06/12/19 History oxycodone 30 mg PO 6XD 06/12/19 06/12/19 History warfarin 5 mg PO 3XWK 06/12/19 06/12/19 History warfarin 7.5 mg PO 4XWK 06/12/19 06/12/19 History Past Med/Surg History Medical History Anginal pain (Chronic) Hypertension (Chronic) Atrial fibrillation (Chronic) Chronic ischemic heart disease (Chronic) Peripheral neuropathy (Chronic) History of peptic ulcer (Chronic) Hypothyroidism (Chronic) CKD (chronic kidney disease), stage III (Chronic) Dyslipidemia (Chronic) Sleep apnea (Chronic) BPH (benign prostatic hypertrophy) (Chronic) "s/p TURP 11/2010" History of DVT (deep vein thrombosis) (Chronic) "06/2012- left upper extremity" PAF (paroxysmal atrial fibrillation) (Chronic) Chest pain Surgical History H/O heart artery stent (Chronic) S/P CABG (coronary artery bypass graft) (Chronic) "2003- CABG x 3" S/P appendectomy (Chronic) S/P hemorrhoidectomy (Chronic) H/O shoulder surgery (Chronic) S/P lumbar spinal fusion (Chronic) S/P TURP (transurethral resection of prostate) (Chronic) H/O colonoscopy (Chronic) H/O esophagogastroduodenoscopy (Chronic) Family History Other No pertinent family history in first degree relatives Social History Preferred Language: Indonesian Communication Ability: Effective Bean Weigher Required: No Beliefs That Will Affect Care: None Current Living Situation: Spouse Other Information That Helps Us Care for You: Yes (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 Seeing a kidney MD) Feels Safe at Home: Yes Safety Concerns: Feels Safe At This Time Smoking Status: Former smoker Tobacco Type: cigarettes ; Cigarettes Per Day: 3 ppd ; Do You Dip or Chew Tobacco: No ; Smoking End Date: 1978 ; Second Hand Exposure: No ; Tobacco Cessation Education Requested by Patient: No Hx Alcohol Use: No Hx Substance Use: No Review of Systems Constitutional: no fever, no chills, no body aches and no weakness Respiratory: no cough, no dyspnea and no pain on inspiration Cardiovascular: no chest pain, no dyspnea on exertion, no palpitations and no lightheadedness Gastrointestinal: no abdominal pain, no nausea, no vomiting, no constipation and no diarrhea/loose stools Musculoskeletal: + myalgia Integumentary: + unusual bruising Physical Exam Constitutional: well developed, cooperative and + in distress; + uncomfortable Neck: trachea midline, no thyromegaly normal visual inspection Respiratory: normal respiratory effort, lungs clear to auscultation Auscultation: lungs clear to auscultation bilaterally; no crackles, no rales, no rhonchi and no wheezes Cardiovascular: Rate/Rhythm: regular rate Heart Sounds: + murmur (midsystolic murmur at 4th intercostal space; likely mitral stenosis) Extremities: normal capillary refill; no calf tenderness Gastrointestinal (Abdomen): normal bowel sounds, soft, nontender, no hepatosplenomegaly Inspection/Auscultation: abdomen normal to inspection Musculoskeletal: Prominent bruising from right posterior thigh wrapping forward medially from superior medial thigh to medial knee. Extremely sensitive to light touch of affected skin. Able to dorsiflex and plantar flex right toes, though it is less strong than left side. Skin: Trauma: + contusion and + hematoma (right medial thigh) Results & Data Vital Signs (Past 12 Hours) Vital Signs Temp Pulse Pulse Resp BP BP Pulse Ox 06/12/19 20:19 82 16 134/59 L 96 06/12/19 18:50 69 18 126/54 L 99 06/12/19 17:36 36.4 C L 72 20 124/64 100 Supervising Physician Co-Signing Physician Notes Pt seen and examined in conjunction with resident MD Jazmin Garcia. Orders and plan of admission formulated with resident. 78 y/o M Hx AF - Coumadin, CAD, HTN, HLD, CKD III, hypothyroidism. He flexed his leg a few days ago and felt a severe cramp-like pain. He has since developed a large hematoma on his R post thigh. His Hb has decreased by 3.5 U. He does not have acute complaints aside from pain in the leg. OA AAO x 3 S1,2 +M, irr CTAB NT, ND No CCE + large hematoma over R hamstring P: Pt received vit K. He will be transfused 1 unit due to underlying heart disease and acute blood loss. We will recheck the Hb AM and monitor for development of compartment syndrome No additional changes have been affected to his medication list and vital signs are notably stable - anemia is essentially asymptomatic PG Care Time/CCT Total # of Minutes Spent Total Time Spent with Patient: Total time spent is greater than 50% in coordination of care (as documented) at patient's floor/unit and/or counseling patient: Resident Activity Tracking Resident Involvement: Resident Care Provided Care Provided: Adult Hospital Medicine (1) Hematoma of right lower extremity Encounter type: initial encounter Qualified Code(s): S80.11XA - Contusion of right lower leg, initial encounter
[2019-06-12] MEDS ORDERED: ACETAMINOPHEN 325 MG TAB PO PRN (21:12)
[2019-06-12] MEDS ORDERED: ONDANSETRON INJ 2 MG/ML 2 ML VIAL IV PRN (21:12)
[2019-06-12] MEDS: MoRPHine SULFATE CR 60 MG TABCR PO SCH (22:16)
[2019-06-12] MEDS: METOPROLOL SUCC 25MG EXT REL TAB PO SCH (22:17)
[2019-06-12] MEDS: HydrALAZINE TAB 50 MG TAB PO SCH (22:18)
[2019-06-12] MEDS: PANTOprazole 40 MG TAB PO SCH (22:18)
[2019-06-12] MEDS: LOSARTAN POTASSIUM 50 MG TAB PO SCH (22:19)
[2019-06-12] MEDS: ATORVASTATIN 40 MG TAB PO SCH (22:20)
[2019-06-12] MEDS: OXYCODONE/ACETAMINOPHEN 10-325 TAB PO PRN (23:22)
[2019-06-13] MEDS: OXYCODONE/ACETAMINOPHEN 10-325 TAB PO PRN ×2 (05:02→12:37)
[2019-06-13 05:06] LABS: Hematocrit (blood only) 23.6 % (42-52); Mean Corpuscular Hemoglobin 30.4 pg (25-34); Mean Corpuscular Hgb Conc 33.9 g/dL (32-36); Mean Corpuscular Volume 89.7 fL (80-100); Mean Platelet Volume 8.2 fL (7.4-10.4); Platelet Count 175 K/uL (130-400); RDW Coefficient of Variation 14.5 % (11.5-14.5); RDW Standard Deviation 47.6 fL (36.4-46.3); Red Blood Count 2.63 M/uL (4.7-6.1); White Blood Count 4.19 K/uL (4.8-10.8)
[2019-06-13 05:21] LABS: INR 1.5 (0.9-1.1); Partial Thromboplastin Ratio 1.3; Partial Thromboplastin Time 34.5 Seconds (21.0-31.0); Prothrombin Time 14.5 Seconds (9.0-12.0)
[2019-06-13 05:43] LABS: BUN Creatinine Ratio 18.3 (10-20); Calcium 8.2 mg/dl (8.5-10.1); Creatinine Clr Calc Pharmacy 52.8 ml/min; Est GFR (African American) 66.5; Est GFR (Non-African American) 57.4
[2019-06-13] MEDS: LEVOTHYROXINE SODIUM 125 MCG TABLET PO SCH (06:26)
[2019-06-13] MEDS: ASPIRIN 81 MG ECTAB PO SCH (08:11)
[2019-06-13] MEDS: HydrALAZINE TAB 50 MG TAB PO SCH ×3 (08:12→21:00)
[2019-06-13] MEDS: AMLODIPINE BESYLATE 5 MG TAB PO SCH (08:12)
[2019-06-13] MEDS: METOPROLOL SUCC 25MG EXT REL TAB PO SCH ×2 (08:12→20:58)
[2019-06-13] MEDS: PANTOprazole 40 MG TAB PO SCH ×2 (08:12→21:00)
[2019-06-13] MEDS: LOSARTAN POTASSIUM 50 MG TAB PO SCH ×2 (08:13→21:00)
[2019-06-13] MEDS: MoRPHine SULFATE CR 60 MG TABCR PO SCH ×2 (08:15→21:00)
--- NOTE | 2019-06-13 12:28 | Family Medicine Progress Note ---
Date of Service June 13, 2019 Assessment & Plan (1) Hematoma of right lower extremity: Mr. Blanc is a 78yo male with a PMHx significant for atrial fibrillation on warfarin, HTN, HLD, CKD III, CAD s/p CABG in 2013 and stent placement in 2018 who was admitted with a 20cm right intramuscular hematoma and symptomatic anemia s/p 5mg Vit K administration and 2U pRBC transfusion. Anemia -Pt with Hgb of 7.0 on admission with occasional dizziness. -Transfused 2U pRBCs on admission with Hgb currently 8.0 post transfusion -currently asymptomatic, vitals stable Hematoma -Lower extremity CT showed 20cm hematoma in semimembranous muscle -Pt bleeding-INR on admission of 3.6. Currently 1.5 after ED Vit K 5mg administration -Will give another 5mg PO Vit K today to thicken blood Pain Control -on baseline home narcotics- oxycodone 30mg q4h, morphine 60mg BID -also scheduled tylenol 650mg and toradol 15mg q6hr Compartment syndrome concern -less likely given exam -Creatinine kinase level normal A. fib -stop warfarin for now as pt currently bleeding. -in future will repeat US to ensure hematoma stable and no evidence of bleeding before restarting warfarin. HTN, HLD -continue home meds DVT prophylaxis: None currently as pt bleeding FEN/GI: Heart Healthy diet CODE STATUS: Conditional Dispo: Home pending improvement Supervising Physician Co-Signing Physician Notes I personally examined the patient and verified all watkins points of history and exam, discussed case, and agree with decision making with Dr Birght. Feeling okay at rest, still having significant pain with walking. Not feeling weak or lightheaded. Notes that whenever he first hurt his leg. It felt like a cramp for a few minutes but he was able to walk it off, and felt just fine later that night, it was later that the pain started to worsen again. Vitals noted, in general he is awake and alert pleasant no distress. HEENT normocephalic atraumatic mucous membranes moist. Breathing unlabored no accessory muscle use good effort. Skin shows no rashes no pallor or icterus. Anemiacertainly with the size of the hematoma acute blood loss anemia is at least a big part of the picture, how low his hemoglobin was does back the question of some chronic anemiamost likely related to his CKD, but certainly would need outpatient follow-up. He is now improved status post transfusion, continue to follow. Intramuscular hematomahe had concerns about a tear. Certainly a small tear could be possible, given that his symptoms felt significantly better for a while before the bleeding ensued, and while CT is not the best modality to look at the muscle itself, there is no CT evidence of a significant tear, it seems that orthopedic intervention is not likely to be needed. Reverse INR further, given that he's got a very sizable hematoma and hemoglobin did not correct quite as expected with the transfusion, pain control, time. Atrial fibrillationhis chads vasc puts him in the mid 6 %/year risk for stroke, so obviously we will want to resume the anticoagulation as soon as is safe, but given that he bled quite significantly into his leg to the point that it caused acute blood loss anemia, quite significant pain, and the need for transfusion, we will need to hold the anticoagulation for at least a short period of time. Once his symptoms are improving and hemoglobin is stable, it may even require follow-up ultrasound to be sure the situation is improving before resuming antic oagulation. Otherwise as above Subjective Mr. Blanc states he is still in significant pain this AM. Of note, has a hx of chronic pain secondary to neuropathy that he follows with a pain clinic for. Currently denies any chest pain, SOB, palps, abd pain, N/V, diarrhea or constipation or swelling in his hands. States he has chronic swelling in his feet. Denies any calf tenderness or new bleeds. Review of Systems Review of Systems: All systems reviewed & are unremarkable except as noted in HPI & below Physical Exam Physical Exam: General: Alert, oriented. No acute distress, eating breakfast. HEENT: NC/AT, PERRLA, EOMI, oropharynx moist. Chest: Nontender to palpation. CV: RRR, Normal s1, s2. No murmurs appreciated Resp: Breath sounds clear bilaterally, no increased effort of breathing. No crackles/rhonchi/rales. Abdomen: Soft, nontender, nondistended. No guarding. No organomegaly appreciated. Extremities: Right thigh purple and very tender to palpation especially on posterior side. Results & Data Vital Signs (Past 12 Hours) Vital Signs Temp Pulse Pulse Resp BP BP Pulse Ox 06/13/19 07:24 36.8 C 58 L 16 115/63 96 06/13/19 03:19 36.5 C 60 18 103/61 95 06/13/19 02:51 36.8 C 64 18 105/61 95 06/13/19 01:50 36.7 C 68 18 121/70 06/13/19 01:45 36.7 C 68 18 121/70 96 06/13/19 01:20 36.7 C 59 L 18 105/62 06/13/19 01:05 36.5 C 61 18 102/61 96 06/13/19 00:40 36.8 C 59 L 18 114/63 96 06/12/19 23:40 36.4 C L 63 19 122/63 98 06/12/19 23:10 36.5 C 65 18 110/61 96 06/12/19 22:40 36.6 C 60 18 109/56 L 96 06/12/19 22:25 36.3 C L 63 18 114/63 100 06/12/19 22:21 36.4 C L 63 19 122/63 98 06/12/19 22:04 36.7 C 70 18 120/65 99 Laboratory Results Laboratory Results - last 24 hr 06/12/19 06/12/19 06/12/19 18:14 18:14 18:14 WBC 5.41 RBC 2.37 L Hgb 7.0 L Hct 21.2 L MCV 89.5 MCH 29.5 MCHC 33.0 RDW Std Deviation 46.6 H RDW Coeff of [place] 14.3 Plt Count 220 MPV 8.7 Immature Gran % (Auto) 0.2 Neut % (Auto) 81.1 Lymph % (Auto) 11.6 [place] % (Auto) 5.9 Eos % (Auto) 0.6 Baso % (Auto) 0.6 Immature Gran # (Auto) 0.01 Neut # (Auto) 4.39 Lymph # (Auto) 0.63 L [place] # (Auto) 0.32 Eos # (Auto) 0.03 Baso # (Auto) 0.03 RBC Morphology Unremarkable PT 34.0 H INR 3.6 H APTT 50.3 H* PTT Ratio 1.9 Sodium 134 L Potassium 4.6 Chloride 101 Carbon Dioxide 27 Anion Gap 7.0 BUN 25 H Creatinine 1.50 H Est Cr Clr Drug Dosing Not Reportable Est GFR ( Amer) 51.3 Est GFR (Non-Af Amer) 44.3 BUN/Creatinine Ratio 16.9 Glucose 101 H Calcium 8.8 Total Bilirubin 1.2 H AST 33 ALT 28 Alkaline Phosphatase 89 Total Creatine Kinase Total Protein 6.3 L Albumin 3.3 L Globulin 3.0 Albumin/Globulin Ratio 1.1 Blood Type Blood Type Recheck Antibody Screen Crossmatch 06/12/19 06/12/19 06/13/19 19:42 20:02 04:51 WBC 4.19 L RBC 2.63 L Hgb 8.0 L Hct 23.6 L MCV 89.7 MCH 30.4 MCHC 33.9 RDW Std Deviation 47.6 H RDW Coeff of [place] 14.5 Plt Count 175 MPV 8.2 Immature Gran % (Auto) Neut % (Auto) Lymph % (Auto) [place] % (Auto) Eos % (Auto) Baso % (Auto) Immature Gran # (Auto) Neut # (Auto) Lymph # (Auto) [place] # (Auto) Eos # (Auto) Baso # (Auto) RBC Morphology PT INR APTT PTT Ratio Sodium Potassium Chloride Carbon Dioxide Anion Gap BUN Creatinine Est Cr Clr Drug Dosing Est GFR ( Amer) Est GFR (Non-Af Amer) BUN/Creatinine Ratio Glucose Calcium Total Bilirubin AST ALT Alkaline Phosphatase Total Creatine Kinase Total Protein Albumin Globulin Albumin/Globulin Ratio Blood Type O Positive Blood Type Recheck O Positive Antibody Screen NEGATIVE Crossmatch See Detail 06/13/19 06/13/19 06/13/19 04:51 04:51 09:56 WBC RBC Hgb Hct MCV MCH MCHC RDW Std Deviation RDW Coeff of [place] Plt Count MPV Immature Gran % (Auto) Neut % (Auto) Lymph % (Auto) [place] % (Auto) Eos % (Auto) Baso % (Auto) Immature Gran # (Auto) Neut # (Auto) Lymph # (Auto) [place] # (Auto) Eos # (Auto) Baso # (Auto) RBC Morphology PT 14.5 H INR 1.5 H APTT 34.5 H PTT Ratio 1.3 Sodium 138 Potassium 4.0 Chloride 103 Carbon Dioxide 28 Anion Gap 7.0 BUN 22 H Creatinine 1.21 Est Cr Clr Drug Dosing 52.8 Est GFR ( Amer) 66.5 Est GFR (Non-Af Amer) 57.4 BUN/Creatinine Ratio 18.3 Glucose 91 Calcium 8.2 L Total Bilirubin AST ALT Alkaline Phosphatase Total Creatine Kinase 152 Total Protein Albumin Globulin Albumin/Globulin Ratio Blood Type Blood Type Recheck Antibody Screen Crossmatch Medications Administered Home Medications Herbal Laxitive 2 tab PO DAILY 11/26/18 [History Confirmed 06/12/19] amlodipine [Norvasc] 10 mg PO QPM 11/26/18 [History Confirmed 06/12/19] aspirin [Aspir-81] 81 mg PO QAM 11/26/18 [History Confirmed 06/12/19] atorvastatin [Lipitor] 80 mg PO HS 11/26/18 [History Confirmed 06/12/19] cholecalciferol (vitamin D3) [Vitamin D3] 1,000 unit PO QAM 11/26/18 [History Confirmed 06/12/19] hydralazine 50 mg PO BID 11/26/18 [History Confirmed 06/12/19] levothyroxine 125 mcg PO QAM 11/26/18 [History Confirmed 06/12/19] losartan [Cozaar] 50 mg PO BID 11/26/18 [History Confirmed 06/12/19] metoprolol succinate [Toprol XL] 12.5 mg PO BID 11/26/18 [History Confirmed 06/12/19] multivitamin 1 tab PO QAM 11/26/18 [History Confirmed 06/12/19] nitroglycerin [Nitrostat] 0.4 mg SUBLINGUAL DIRECTED PRN 11/26/18 [History Confirmed 06/12/19] pantoprazole [Protonix] 40 mg PO QAM 11/26/18 [History Confirmed 06/12/19] ascorbic acid (vitamin C) 1,000 mg PO BID 06/12/19 [History Confirmed 06/12/19] cyclobenzaprine 10 mg PO BID PRN 06/12/19 [History Confirmed 06/12/19] garlic 500 mg PO BID 06/12/19 [History Confirmed 06/12/19] morphine 60 mg PO BID 06/12/19 [History Confirmed 06/12/19] oxycodone 30 mg PO 6XD 06/12/19 [History Confirmed 06/12/19] warfarin 5 mg PO 3XWK 06/12/19 [History Confirmed 06/12/19] warfarin 7.5 mg PO 4XWK 06/12/19 [History Confirmed 10/04/19] Active Medications Acetaminophen (Tylenol) 650 mg PO Q4H PRN PRN Reason: pain/fever Stop: 07/12/19 21:11 Amlodipine Besylate (Norvasc) 10 mg PO DAILY [facility] Stop: 07/13/19 08:59 Last Admin: 06/13/19 08:12 Dose: 10 mg Documented by: Aspirin (Ecotrin Ectab) 81 mg PO DAILY PRAKASH Stop: 07/13/19 08:59 Last Admin: 06/13/19 08:11 Dose: 81 mg Documented by: Atorvastatin Calcium (Lipitor) 80 mg PO HS [facility] Stop: 07/12/19 21:59 Last Admin: 06/12/19 22:20 Dose: 80 mg Documented by: Hydralazine HCl (Apresoline) 50 mg PO TID [facility] Stop: 07/12/19 21:29 Last Admin: 06/13/19 08:12 Dose: 50 mg Documented by: Sodium Chloride (Nss) 250 mls @ 15 mls/hr IV .[id number] PRN PRN Reason: For Transfusion Stop: 07/12/19 21:24 Last Admin: 06/13/19 00:32 Dose: 15 mls/hr Documented by: Sodium Chloride (Nss) 250 mls @ 15 mls/hr IV .[id number] PRN PRN Reason: For Transfusion Stop: 07/12/19 22:28 Levothyroxine Sodium (Synthroid) 125 mcg PO DAILYBB [facility] Stop: 07/13/19 06:29 Last Admin: 06/13/19 06:26 Dose: 125 mcg Documented by: Losartan Potassium (Cozaar) 50 mg PO BID [facility] Stop: 07/12/19 21:29 Last Admin: 06/13/19 08:13 Dose: 50 mg Documented by: Metoprolol Succinate (Toprol Xl) 12.5 mg PO BID [facility] Stop: 07/12/19 21:29 Last Admin: 06/13/19 08:12 Dose: 12.5 mg Documented by: Morphine Sulfate (Ms Contin) 60 mg PO Q12 [facility] Stop: 06/26/19 21:29 Last Admin: 06/13/19 08:15 Dose: 60 mg Documented by: Ondansetron HCl (Zofran) 4 mg IV Q6H PRN PRN Reason: Nausea Stop: 07/12/19 21:11 Oxycodone/Acetaminophen (Percocet 10/325mg) 1 tab PO Q4H PRN PRN Reason: Pain Stop: 06/26/19 21:11 Last Admin: 06/13/19 05:02 Dose: 1 tab Documented by: Pantoprazole Sodium (Protonix) 40 mg PO BID [facility] Stop: 07/12/19 21:29 Last Admin: 06/13/19 08:12 Dose: 40 mg Documented by: PG Care Time/CCT Total # of Minutes Spent Total Time Spent with Patient: Total time spent is greater than 50% in coordination of care (as documented) at patient's floor/unit and/or counseling patient: Resident Activity Tracking Resident Involvement: Resident Care Provided Care Provided: Adult Hospital Medicine (1) Hematoma of right lower extremity Encounter type: initial encounter Qualified Code(s): S80.11XA - Contusion of right lower leg, initial encounter
[2019-06-13] MEDS ORDERED: OXYCODONE HCL IR 30 MG TAB (IMMEDIATE RELEASE) PO PRN (15:06)
[2019-06-13] MEDS ORDERED: PHYTONADIONE 5 MG TAB PO SCH (15:30)
[2019-06-13] MEDS: KETOROLAC TROMETHAMINE 15 MG/ML VIAL IV SCH ×2 (16:49→21:00)
[2019-06-13] MEDS: ACETAMINOPHEN 325 MG TAB PO SCH ×2 (17:35→23:58)
[2019-06-13] MEDS: ATORVASTATIN 40 MG TAB PO SCH (21:00)
[2019-06-14] MEDS: KETOROLAC TROMETHAMINE 15 MG/ML VIAL IV SCH ×3 (04:54→11:49)
[2019-06-14] MEDS: ACETAMINOPHEN 325 MG TAB PO SCH ×2 (06:13→11:49)
[2019-06-14] MEDS: LEVOTHYROXINE SODIUM 125 MCG TABLET PO SCH (06:13)
[2019-06-14 06:26] LABS: Basophils # (auto) 0.01 K/uL (0-0.2); Basophils % (auto) 0.2 %; Eosinophils # (auto) 0.18 K/uL (0-0.5); Eosinophils % (auto) 3.9 %; Hematocrit (blood only) 24.7 % (42-52); Hemoglobin 8.3 g/dL (14.0-18.0); Immature Granulocytes # (auto) 0.02 K/uL (0.00-0.02); Immature Granulocytes % (auto) 0.4 %; Lymphocytes # (auto) 0.73 K/uL (1.2-3.4); Lymphocytes % (auto) 15.8 %; Mean Corpuscular Hemoglobin 30.1 pg (25-34); Mean Corpuscular Hgb Conc 33.6 g/dL (32-36); Mean Corpuscular Volume 89.5 fL (80-100); Monocytes # (auto) 0.43 K/uL (0.11-0.59); Monocytes % (auto) 9.3 %; Neutrophils # (auto) 3.26 K/uL (1.4-6.5); Neutrophils % (auto) 70.4 %; Platelet Count 182 K/uL (130-400); RDW Coefficient of Variation 14.7 % (11.5-14.5); RDW Standard Deviation 47.7 fL (36.4-46.3); Red Blood Count 2.76 M/uL (4.7-6.1); White Blood Count 4.63 K/uL (4.8-10.8)
[2019-06-14 06:39] LABS: INR 1.1 (0.9-1.1); Prothrombin Time 10.8 Seconds (9.0-12.0)
[2019-06-14 06:58] LABS: Albumin Level 2.8 gm/dl (3.4-5.0); BUN Creatinine Ratio 19.2 (10-20); Calcium 8.4 mg/dl (8.5-10.1); Creatinine Clr Calc Pharmacy 44.1 ml/min; Est GFR (African American) 53.5; Est GFR (Non-African American) 46.1; Potassium 4.2 mmol/L (3.5-5.1)
[2019-06-14 07:00] LABS: Bilirubin,Total 1.4 mg/dl (0.2-1); Globulin 2.8 gm/dl (2.5-4.0); Total Protein 5.6 gm/dl (6.4-8.2)
[2019-06-14] MEDS: LOSARTAN POTASSIUM 50 MG TAB PO SCH (07:38)
[2019-06-14] MEDS: METOPROLOL SUCC 25MG EXT REL TAB PO SCH (07:39)
[2019-06-14] MEDS: AMLODIPINE BESYLATE 5 MG TAB PO SCH (07:39)
[2019-06-14] MEDS: PANTOprazole 40 MG TAB PO SCH (07:40)
[2019-06-14] MEDS: HydrALAZINE TAB 50 MG TAB PO SCH (07:40)
[2019-06-14] MEDS: ASPIRIN 81 MG ECTAB PO SCH (07:40)
[2019-06-14] MEDS: MoRPHine SULFATE CR 60 MG TABCR PO SCH (09:07)
[2019-06-14] MEDS ORDERED: SODIUM CHLORIDE 0.9% 1000ML 1,000 ML IV SCH (09:30)
--- NOTE | 2019-06-14 11:52 | Discharge Summary ---
Date of Service June 14, 2019 Admission HPI Per Admitting Provider 78 yo M with extensive PMH including paroxysmal Afib, HTN, CKD, hx CABG, chronic pain who presented to the ED after 1 week of right thigh pain. Patient felt a sharp pulling sensation 1 week ago while getting out of the car, went about his day after treating it with ice and rest. A few days later noticed bruising startin on the posterior thigh, and multiple days later pain was still present and gradually getting worse. [facility], at which they told him to come to the ED. He is on warfarin for paroxysmal Afib, was found to have a supratherapeutic INR of 3.5 in the ED as well as a Hg of 7.0. CT of right femur shows 20 cm hematoma in semimembranosus muscle with surrounding edema. He describes the pain as a constant 6/10 laying in bed, with spikes up to 9/10 when he tries to move or use the right leg or thigh. Patient denies symptoms of shortness of breath, trouble breathing, general malaise or fatigue. He says his last INR check a month ago was closer to 2.6 which is where he normally is. Admission Exam Per Admitting Provider Constitutional: well developed, cooperative and + in distress; + uncomfortable Neck: trachea midline, no thyromegaly normal visual inspection Respiratory: normal respiratory effort, lungs clear to auscultation Auscultation: lungs clear to auscultation bilaterally; no crackles, no rales, no rhonchi and no wheezes Cardiovascular: Rate/Rhythm: regular rate Heart Sounds: + murmur (midsystolic murmur at 4th intercostal space; likely mitral stenosis) Extremities: normal capillary refill; no calf tenderness Gastrointestinal (Abdomen): normal bowel sounds, soft, nontender, no hepatosplenomegaly Inspection/Auscultation: abdomen normal to inspection Musculoskeletal: Prominent bruising from right posterior thigh wrapping forward medially from superior medial thigh to medial knee. Extremely sensitive to light touch of affected skin. Able to dorsiflex and plantar flex right toes, though it is less strong than left side. Skin: Trauma: + contusion and + hematoma (right medial thigh) Principal Diagnosis Hematoma on warfarin Symptomatic anemia Discharge Exam General: Alert, oriented. No acute distress, eating breakfast. HEENT: NC/AT, PERRLA, EOMI, oropharynx moist. Chest: Nontender to palpation. CV: RRR, Normal s1, s2. No murmurs appreciated Resp: Breath sounds clear bilaterally, no increased effort of breathing. No crackles/rhonchi/rales. Abdomen: Soft, nontender, nondistended. No guarding. No organomegaly appreciated. Extremities: Right thigh purple and very tender to palpation especially on posterior side. Discharge Data Allergies Allergy/AdvReac Type Severity Reaction Status Date / Time terazosin Allergy Intermediate RASH Verified 06/12/19 21:12 pseudoephedrine Allergy Unknown Unknown Verified 06/12/19 21:12 ART Inhibitors AdvReac Mild COUGH Verified 06/12/19 21:12 isosorbide AdvReac Mild Headache Verified 06/12/19 21:12 Nitrate Analogues AdvReac Mild Headache Verified 06/12/19 21:12 Consultations 06/12/19 19:23 ED Decision to Admit Stat 06/12/19 21:12 Consult Case Management - Discharge Planning Routine Ordered Studies 06/12/19 18:04 CT femur RT wo con Stat CT tib/fib RT wo con Stat Laboratory Results WBC 4.63 K/uL (4.8-10.8) L 06/14/19 06:15 RBC 2.76 M/uL (4.7-6.1) L 06/14/19 06:15 Hgb 8.3 g/dL (14.0-18.0) L 06/14/19 06:15 Hct 24.7 % (42-52) L 06/14/19 06:15 MCV 89.5 fL (80-100) 06/14/19 06:15 MCH 30.1 pg (25-34) 06/14/19 06:15 MCHC 33.6 g/dL (32-36) 06/14/19 06:15 RDW Std Deviation 47.7 fL (36.4-46.3) H 06/14/19 06:15 RDW Coeff of Fatemeh 14.7 % (11.5-14.5) H 06/14/19 06:15 Plt Count 182 K/uL (130-400) 06/14/19 06:15 MPV 8.0 fL (7.4-10.4) 06/14/19 06:15 Immature Gran % (Auto) 0.4 % 06/14/19 06:15 Neut % (Auto) 70.4 % 06/14/19 06:15 Lymph % (Auto) 15.8 % 06/14/19 06:15 [place] % (Auto) 9.3 % 06/14/19 06:15 Eos % (Auto) 3.9 % 06/14/19 06:15 Baso % (Auto) 0.2 % 06/14/19 06:15 Immature Gran # (Auto) 0.02 K/uL (0.00-0.02) 06/14/19 06:15 Neut # (Auto) 3.26 K/uL (1.4-6.5) 06/14/19 06:15 Lymph # (Auto) 0.73 K/uL (1.2-3.4) L 06/14/19 06:15 [place] # (Auto) 0.43 K/uL (0.11-0.59) 06/14/19 06:15 Eos # (Auto) 0.18 K/uL (0-0.5) 06/14/19 06:15 Baso # (Auto) 0.01 K/uL (0-0.2) 06/14/19 06:15 RBC Morphology Unremarkable 06/12/19 18:14 PT 10.8 Seconds (9.0-12.0) 06/14/19 06:15 INR 1.1 (0.9-1.1) 06/14/19 06:15 APTT 34.5 Seconds (21.0-31.0) H 06/13/19 04:51 PTT Ratio 1.3 06/13/19 04:51 Sodium 138 mmol/L (136-145) 06/14/19 06:15 Potassium 4.2 mmol/L (3.5-5.1) 06/14/19 06:15 Chloride 103 mmol/L (98-107) 06/14/19 06:15 Carbon Dioxide 30 mmol/L (21-32) 06/14/19 06:15 Anion Gap 5.0 (3-11) 06/14/19 06:15 BUN 28 mg/dl (7-18) H 06/14/19 06:15 Creatinine 1.45 mg/dl (0.6-1.4) H 06/14/19 06:15 Est Cr Clr Drug Dosing 44.1 ml/min 06/14/19 06:15 Est GFR ( Amer) 53.5 06/14/19 06:15 Est GFR (Non-Af Amer) 46.1 06/14/19 06:15 BUN/Creatinine Ratio 19.2 (10-20) 06/14/19 06:15 Glucose 89 mg/dl (70-99) 06/14/19 06:15 Calcium 8.4 mg/dl (8.5-10.1) L 06/14/19 06:15 Total Bilirubin 1.4 mg/dl (0.2-1) H 06/14/19 06:15 AST 24 U/L (15-37) 06/14/19 06:15 ALT 23 U/L (12-78) 06/14/19 06:15 Alkaline Phosphatase 82 U/L (45-117) 06/14/19 06:15 Total Creatine Kinase 107 U/L (39-308) 06/14/19 06:15 Total Protein 5.6 gm/dl (6.4-8.2) L 06/14/19 06:15 Albumin 2.8 gm/dl (3.4-5.0) L 06/14/19 06:15 Globulin 2.8 gm/dl (2.5-4.0) 06/14/19 06:15 Albumin/Globulin Ratio 1.0 (0.9-2) 06/14/19 06:15 Blood Type O Positive 06/12/19 19:42 Blood Type Recheck O Positive 06/12/19 20:02 Antibody Screen NEGATIVE 06/12/19 19:42 Crossmatch See Detail 06/12/19 19:42 Hospital Course (1) Hematoma of right lower extremity: Mr. Blanc is a 78yo male with a PMHx significant for atrial fibrillation on warfarin, HTN, HLD, CKD III, CAD s/p CABG in 2014 and stent placement in 2018 who was admitted with a 20cm right intramuscular hematoma and symptomatic anemia. Received 5mg Vit K and transfused with 2units of pRBCs in the ED on admission. Admitted on Jun 12 and discharged on Jun 14 2019. Anemia -Pt with Hgb of 7.0 on admission with occasional dizziness. -Transfused 2U pRBCs on admission, went up to 8.0 post transfusion and on day of discharge hgb level was 8.3. -asymptomatic on discharge, vitals stable. -Close PCP followup strongly encouraged. Hematoma -Lower extremity CT showed 20cm hematoma in semimembranous muscle "There is a large mixed density abnormality within the right [place] imembranosus muscle which measures 20 cm in length and up to 7.6 cm in diameter. This demonstrates a hematocrit level and is consistent with an intramuscular hematoma. No fracture or dislocation within the right hip, right femur, right tibia, right fibula. Mild vascular calcifications are noted. Mild subcutaneous edema within the lateral aspect of the right hip. This also subcutaneous edema throughout the right lower leg and ankle. Soft tissue hematoma within the right lower leg. IMPRESSION: 1. A large intramuscular hematoma within the right semimembranosus muscle measuring 20 cm in length. 2. No fractures within the right femur right lower leg." -INR on admission of 3.6. TWO administrations of Vit K 5mg during his hospital stay. -INR on discharge is 1.1. -warfarin held during admission and held on discharge. -Close PCP followup required for restart of warfarin. Can consider restarting after repeat lower extremity US shows stability or maybe even decrease in size of hematoma, thus confirming pt no longer bleeding into thigh given presentation. Pain Control -on baseline home narcotics- oxycodone 30mg q4h, morphine 60mg BID -per pt, he is in contract with a [facility] pain [facility] who prescribes the above meds for neuropathic pain. -also received scheduled tylenol 650mg and toradol 15mg q6hr while hospitalized; can continue tylenol after discharge and followup with pain clinic for pain control after discharge. Compartment syndrome concern -less likely given exam. -Creatinine kinase level continuously normal while hospitalized. A. fib -warfarin discontinued given presentation and discontinued on discharge. -CHADSVASc score indicates 6.7% risk of stroke in the next year. However, currently risk of bleeding outweighs stroke risk. -as above, close PCP followup required for restart of warfarin as soon as possible. Can consider restarting after repeat lower extremity US shows stab ility or maybe even decrease in size of hematoma, thus confirming pt no longer bleeding into thigh given presentation. -Close PCP followup strongly recommended. HTN, HLD -continue home meds Total Time Total Time Spent Total Time Spent (In Minutes): <30 Discharge Plan Discharge Items Patient Disposition: Home - Self-Care Reason For Visit: HEMATOMA ON WARFARIN Discharge Diagnosis: Hematoma Anemia Activity: Per Instructions section Non-emergency contact: Primary Care Provider Call non-emergency contact if: you have any medication questions, your symptoms worsen and you have a fever Follow-up/Referrals: Yi Alvares MD [Primary Care Provider] - Diet: Regular Addtl Attending Provider Instructions: You were admitted to the hospital because you had an anemia and a very large hematoma in your thigh, likely secondary to bleeding caused by your use warfarin for your atrial fibrillation. -We have stopped your warfarin while you were in the hospital. The effects of the warfarin were also reversed by giving you Vitamin K. It is very important that you follow up with your primary care doctor to determine when your warfarin could be restarted. You might need a repeat ultrasound of your thigh to ensure that bleeding has stopped and the hematoma is stable before it can be resumed. -You also had a very bad anemia that required a blood transfusion. Though your hemoglobin is better than what it was when you came in, it is still low. We again recommend close followup with your primary care doctor to ensure that you have stopped bleeding and that your anemia is improving. Should you develop dizziness, palpitations, fatigue, blurry vision especially when you're on your feet and up and moving about, we recommend that you seek emergent medical care as it may be a sign that you are experiencing symptoms from your anemia. -Please continue to use your home pain medications and follow up with your pain clinic and primary care doctor for continued pain control. -Should you notice any new bruising, or symptoms of dizziness, palpitations, fatigue, blurry vision as described above, please present to the nearest emergency room. It was a pleasure taking care of you during your stay here! Pending Studies at Discharge: No Stand-Alone Forms: My [facility] Medications and DC Order Prescriptions: Continued ascorbic acid (vitamin C) 1,000 mg Tablet 1,000 mg PO BID RF: 0 garlic 500 mg Capsule 500 mg PO BID RF: 0 morphine 60 mg tablet extended release 60 mg PO BID RF: 0 oxycodone 30 mg tablet 30 mg PO 6XD RF: 0 cyclobenzaprine 10 mg tablet 10 mg PO BID PRN (Reason: Muscle Spasm) RF: 0 multivitamin Tablet 1 tab PO QAM RF: 0 losartan [Cozaar] 50 mg tablet 50 mg PO BID RF: 0 atorvastatin [Lipitor] 80 mg tablet 80 mg PO HS RF: 0 aspirin [Aspir-81] 81 mg Tablet,Delayed Release (Dr/Ec) 81 mg PO QAM RF: 0 amlodipine [Norvasc] 10 mg tablet 10 mg PO QPM RF: 0 pantoprazole [Protonix] 40 mg tablet,delayed release (DR/EC) 40 mg PO QAM RF: 0 levothyroxine 125 mcg tablet 125 mcg PO QAM RF: 0 nitroglycerin [Nitrostat] 0.4 mg Tablet, Sublingual 0.4 mg sublingual DIRECTED PRN (Reason: Chest Pain) RF: 0 hydralazine 50 mg tablet 50 mg PO BID RF: 0 metoprolol succinate [Toprol XL] 25 mg tablet extended release 24 hr 12.5 mg PO BID RF: 0 cholecalciferol (vitamin D3) [Vitamin D3] 1,000 unit Capsule 1,000 unit PO QAM RF: 0 Herbal Laxitive 2 tab PO DAILY RF: 0 Discontinued warfarin 5 mg tablet 7.5 mg PO 4XWK RF: 0 warfarin 5 mg tablet 5 mg PO 3XWK RF: 0 Discharge Orders: Discharge Order (Routine); Ordered 06/14/19 Ordered By: Mel Bright Admission Data Admit Date/Time: 06/12/19 20:28 Attending Provider: Cornelio Jean-Baptiste Admit Provider: Luciana Garcia Primary Care Provider: Yi Alvares Other Providers: Cornelio Jean-Baptiste Other Interventions: Discharge Summary Assessment (RN) Last Done: 06/14/19 12:21 DC Date/Time DO NOT enter until pt leaves facility: 06/14/19 13:45 Supervising Physician Co-Signing Physician Notes I personally examined the patient and verified all watkins points of history and exam, discussed case, and agree with decision making with Dr Bright. Feeling okay at rest, now pain with exertion is tolerable. No lightheaded or weakness. Generally feeling better. Feels safe to go home. Vitals noted, in general he is awake and alert pleasant no distress. HEENT normocephalic atraumatic mucous membranes moist. Breathing unlabored no accessory muscle use good effort. Skin shows no rashes no pallor or icterus. Right lower extremity with diffuse bruising and tenderness, but no crepitus and no exquisite tenderness. He is able to generate pretty reasonable motor strength flexing at the knee and extending at the hip, it seems to be more limited by pain and being in a hospital bed than actual motor weakness. Anemiacertainly with the size of the hematoma acute blood loss anemia is at least a big part of the picture, how low his hemoglobin was does back the question of some chronic anemiamost likely related to his CKD, but certainly would need outpatient follow-up. He is improved and is stable status post transfusion. Stable for home. Outpatient follow-up. Intramuscular hematomahe had concerns about a tear. Certainly a small tear could be possible, given that his symptoms felt significantly better for a while before the bleeding ensued, and while CT is not the best modality to look at the muscle itself, there is no CT evidence of a significant tear, and the fact that he does generate good power on motor exam, it seems that orthopedic intervention is not likely to be needed. Off of Coumadin for the short future, close outpatient follow-up this week, but if his hemoglobin is stable, his pain and symptoms seem to be improving, then we would want to resume Coumadin as quickly as possible to protect him from stroke, and obviously then follow his leg cl osely after the Coumadin is resumed. If there is any doubt clinically about his status, serial ultrasounds may be useful in assessing the size of the hematoma as well. Atrial fibrillationhis chads vasc puts him in the mid 6 %/year risk for stroke, so obviously we will want to resume the anticoagulation as soon as is safe, but given that he bled quite significantly into his leg to the point that it caused acute blood loss anemia, quite significant pain, and the need for transfusion, we will need to hold the anticoagulation for at least a short period of time. Once his symptoms are improving and hemoglobin is stable, it may even require follow-up ultrasound to be sure the situation is improving before resuming anticoagulation. Otherwise as above Stable for home. Discussed getting out and walking for 5 minutes out of every hour on his planned car trip to [place] for his pain management appointment later this week. Resident Activity Tracking Resident Involvement: Resident Care Provided Care Provided: Adult [facility]
== END 2019-06-14 13:45 | disposition home or self-care (01) | DRG 813 ==
LOC: ED 17:31 → 4W 20:28

== ENCOUNTER 2021-02-04 05:41 | Inpatient (IN) ==
--- NOTE | 2021-02-04 05:53 | Emergency Department Note ---
Impression & Plan Symptomatic anemia, Chest pain, H/O heart artery stent, S/P CABG (coronary artery bypass graft), Hematoma of left thigh, Elevated INR ED Provider Note NAME: TAY YU AGE: 80 SEX: M : 1940 ARRIVES VIA: Ambulance INFORMANT: Patient, EMS ED PROVIDER(S): Archie Blevins MD CHIEF COMPLAINT: chest pain HPI: This is a 80 year old male who has a significant cardiac history including stents and bypass that presents to the ED complaining of chest pain. The patient reports that he stood at the side of the bed and began having chest pain. He took aspirin for the pain which brought the pain down to a 3. EMS was called and gave the patient nitro which brought the pain down to zero. Patient reports the pain has an aching sensation and the worst pain of his life. He is currently pain free. His pharmaceutical sales specialist is Dr Hanks. The patient was recently seen here in the ED for a leg hematoma and was found to have an elevated INR. ROS: See above HPI for pertinent positives & negatives. A total of 10 systems reviewed and were otherwise negative. PAST MEDICAL HISTORY: See Below PAST SURGICAL HISTORY: See Below FAMILY HISTORY: See Below SOCIAL HISTORY: See Below HOME MEDICATIONS: See Below ALLERGIES: See Below VITALS: See Below PHYSICAL EXAMINATION: VITAL SIGNS - Vital signs and nursing notes were reviewed. GENERAL - 80-year-old male appearing stated age who is in no acute distress. Communicates well with provider and answers questions appropriately. SKIN - Without rashes. HEAD - NC/AT. EYES - PERRL with EOMI bilaterally. Sclera anicteric. Palpebral conjunctiva pink and moist with no injection noted. EARS - No deformities of external structures noted on gross examination bilaterally. NOSE - Midline and without cyanosis. No epistaxis or purulent drainage noted. Septum midline without deviation or septal hematoma noted. MOUTH/OROPHARYNX - Without perioral cyanosis. Buccal mucosa pink and moist and without leukoplakia. Tongue midline with equal elevation of palate bilaterally. No tonsillar hypertrophy, erythema, or exudates noted. NECK - Neck with FROM. Supple to palpation. lymphadenopathy noted. No nuchal rigidity. LUNGS - Chest wall symmetric without accessory muscle use, intercostals retractions, or central cyanosis. Normal vesicular breath sounds CTA B/L. No wheezes, rales, or rhonchi appreciated. CARDIAC - RRR with S1/S2. No murmur, rubs, or gallops appreciated. ABDOMEN - Abdominal contour without pulsations or visible masses. BS normoactive all four quadrants. No tenderness, palpable masses, hepatosplenomegaly, or ascites noted. EXTREMITIES - No clubbing or peripheral cyanosis. No pretibial edema present. +3/5 radial, posterior tibial, and dorsalis pedis pulses palpated throughout. +5/5 strength noted in UE/LE bilaterally. NEUROLOGIC - Cranial nerves II through XII grossly intact. Sensory intact to light touch throughout. Patellar reflexes +2/4. PSYCH - A&Ox3 and cooperates fully with examiner. Pt is very pleasant and interacts well with examiner. MEDICAL DECISION MAKING: Patient was seen and evaluated as above in room C9. Review was performed of nursing notes and vital signs. I did review pertinent previous visits and patient history. After obtaining a thorough history and physical examination the above work up was performed. This 80-year-old male who presents emergency department with a significant cardiac history complaining of chest pain. Patient was found to be anemic. He has a large hematoma to the left lower extremity. He was sent for CAT scan of this left lower hematoma. He was typed and crossed for 1 unit of packed red blood cells. I did discuss the case with the hospitalist service who did agree to meet the patient. Patient is in agreement with the treatment plan. An order was placed for continuous cardiac monitoring. The monitor shows a rate of 73 with Normal SInus rhythm. The patient was evaluated during a period of high volume and high acuity during the global COVID-19 pandemic, and that diagnosis was suspected/considered upon their initial presentation. Their evaluation, treatment and testing was consistent with current guidelines for patients who present with complaints or symptoms that may be related to COVID-19. Patient was seen while provider was wearing PPE. Triage Nursing notes reviewed. Prior medical records reviewed Vital Signs: reviewed and remarkable for no significant abnormalities Differential diagnosis: Cardiac ischemia, aortic dissection, pulmonary embolism, pneumothorax, pneumonia, pericarditis, myocarditis, esophageal rupture, GERD, cholecystitis, pancreatitis, musculoskeletal, as well as other pathologies. ER treatment provided: See below Diagnostics interpreted by me: ECG: EKG shows Normal Sinus rhythm Left axis deviation, LBBB, QTC 488, rate is 77 EKG is compared to 08/05/2020 and is unchanged Laboratory studies: As stated above and show below. Imaging studies: A one view of the chest was interpreted by me and does not show any evidence of PTX, pneumonia or congestion Consultation(s): Internal Medicine ED COURSE: Procedures: none PDMP:reviewed and no issues Critical Care: I have personally spent greater than 30 minutes of critical care time in the direct management of this patient. This includes bedside care, interpretation of diagnostic studies, and testing, discussion with consultants, patient, and family members, and other required patient management activities. This 30 minutes is in excess of all separately billable procedures. Past Med/Surg History Medical History (Updated 02/04/21 @ 23:40 by Archie Blevins MD) Anginal pain Atrial fibrillation BPH (benign prostatic hypertrophy) "s/p TURP 11/2010" Chest pain Chronic ischemic heart disease CKD (chronic kidney disease), stage III Dyslipidemia History of DVT (deep vein thrombosis) "06/2012- left upper extremity" History of peptic ulcer Hypertension Hypothyroidism PAF (paroxysmal atrial fibrillation) Peripheral neuropathy Sleep apnea Surgical History (Updated 02/04/21 @ 23:40 by Archie Blevins MD) H/O colonoscopy H/O esophagogastroduodenoscopy H/O heart artery stent H/O shoulder surgery S/P appendectomy 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 3" S/P hemorrhoidectomy S/P lumbar spinal fusion S/P TURP (transurethral resection of prostate) Family History Other No pertinent family history in first degree relatives Social History Smoking Status: Never smoker Tobacco Type: Cigarettes Cigarettes Per Day: 3 ppd; Second Hand Exposure: No; Hx Alcohol Use: No Hx Substance Use: Yes Last Used Substance: Hours (ago) Last Used Substance Other:: appx 7pm saturday night Substance Use Type Other:: pain management program with morphine and oxycodone Preferred Language: Mosotho Communication Ability: Effective It Technical Support Specialist Required: No Beliefs That Will Affect Care: None Current Living Situation: Spouse Other Information That Helps Us Care for You: No Feels Safe at Home: Yes Safety Concerns: Feels Safe At This Time Assistive Devices: None Allergies Allergies Allergy/AdvReac Type Severity Reaction Status Date / Time terazosin Allergy Intermediate RASH Verified 02/04/21 07:16 pseudoephedrine Allergy Unknown Unknown Verified 02/04/21 07:16 ART Inhibitors AdvReac Mild COUGH Verified 02/04/21 07:16 isosorbide AdvReac Mild Headache Verified 02/04/21 07:16 Nitrate Analogues AdvReac Mild Headache Verified 02/04/21 07:16 Home Meds Home Medications Medication Instructions Recorded Confirmed amlodipine [Norvasc] 10 mg PO QPM 11/26/18 02/04/21 atorvastatin [Lipitor] 80 mg PO HS 11/26/18 02/04/21 cholecalciferol (vitamin D3) 1,000 unit PO QAM 11/26/18 02/04/21 [Vitamin D3] hydralazine 50 mg PO BID 11/26/18 02/04/21 levothyroxine 125 mcg PO QAM 11/26/18 02/04/21 losartan [Cozaar] 50 mg PO BID 11/26/18 02/04/21 metoprolol succinate [Toprol XL] 25 mg PO QAM 11/26/18 02/04/21 multivitamin 1 tab PO QAM 11/26/18 02/04/21 nitroglycerin [Nitrostat] 0.4 mg SUBLINGUAL DIRECTED PRN 11/26/18 02/04/21 pantoprazole [Protonix] 40 mg PO QAM 11/26/18 02/04/21 ascorbic acid (vitamin C) 1,000 mg PO BID 06/12/19 02/04/21 cyclobenzaprine 10 mg PO BID PRN 06/12/19 02/04/21 garlic 500 mg PO BID 06/12/19 02/04/21 morphine 60 mg PO BID 06/12/19 02/04/21 oxycodone 30 mg PO [id number] 06/12/19 02/04/21 herbal drugs [Herbal Laxative] 2 tab PO QAM 05/29/20 02/04/21 warfarin 5 mg PO WK 05/29/20 02/04/21 aspirin 81 mg PO QAM 08/05/20 02/04/21 warfarin 7.5 mg PO [id number] 08/05/20 02/04/21 Results & Data (ED) Vital Signs Vital Signs - 24 hr 02/04/21 05:47 02/04/21 05:49 02/04/21 06:00 Temperature 37.4 C Temperature Source Oral Pulse Rate 74 73 73 Pulse Rate [Right Finger] Pulse Rate from SpO2 Sensor 74 72 Pulse Rhythm Pulse Strength Respiratory Rate 13 16 14 Respiratory Depth Normal Blood Pressure 131/64 131/64 125/57 L Blood Pressure [Right Arm] Blood Pressure Mean 86 86 79 Blood Pressure Mean [Right Arm] Blood Pressure Position Lying Blood Pressure Position [Right Arm] Pulse Oximetry 98 98 96 Oxygen Delivery Method Room Air Room Air Room Air Sepsis Recent Fever Within 48 Hours No Sepsis New/Unexplained Change in Mental Status N/A Sepsis Action Taken by Nursing No Action Required 02/04/21 06:30 02/04/21 07:12 02/04/21 07:55 Temperature 36.5 C Temperature Source Oral Pulse Rate 76 74 70 Pulse Rate [Right Finger] Pulse Rate from SpO2 Sensor 75 74 Pulse Rhythm Regular Pulse Strength Normal Respiratory Rate 17 20 18 Respiratory Depth Blood Pressure 131/61 122/61 99/52 L Blood Pressure [Right Arm] Blood Pressure Mean 84 81 67 Blood Pressure Mean [Right Arm] Blood Pressure Position Lying Blood Pressure Position [Right Arm] Pulse Oximetry 96 98 99 Oxygen Delivery Method Room Air Sepsis Recent Fever Within 48 Hours Sepsis New/Unexplained Change in Mental Status Sepsis Action Taken by Nursing 02/04/21 08:13 02/04/21 08:16 02/04/21 08:28 Temperature 36.8 C 36.6 C Temperature Source Oral Oral Pulse Rate 64 62 Pulse Rate [Right Finger] 63 Pulse Rate from SpO2 Sensor Pulse Rhythm Regular Regular Pulse Strength Normal Normal Respiratory Rate 16 12 16 Respiratory Depth Blood Pressure 102/49 L 99/49 L Blood Pressure [Right Arm] 101/50 L Blood Pressure Mean 66 65 Blood Pressure Mean [Right Arm] 67 Blood Pressure Position Lying Lying Blood Pressure Position [Right Arm] Lying Pulse Oximetry 98 98 95 Oxygen Delivery Method Room Air Sepsis Recent Fever Within 48 Hours Sepsis New/Unexplained Change in Mental Status Sepsis Action Taken by [facility] Medications Current Medication List: was personally reviewed by me Laboratory Data Attestation: I reviewed the patient's lab results. Result diagrams: 02/04/21 19:21 02/04/21 06:29 Lab Results 02/04/21 02/04/21 02/04/21 Range/Units 05:48 05:48 05:48 WBC 3.49 L (4.8-10.8) K/uL RBC 2.44 L (4.7-6.1) M/uL Hgb 7.3 L (14.0-18.0) g/dL POC Hgb (14.0-18.0) g/dl Hct 22.0 L (42-52) % POC Hct (42-52) % MCV 90.2 (80-100) fL MCH 29.9 (25-34) pg MCHC 33.2 (32-36) g/dL RDW Std Deviation 45.6 (36.4-46.3) fL RDW Coeff of Fatemeh 13.7 (11.5-14.5) % Plt Count 277 (130-400) K/uL MPV 9.2 (7.4-10.4) fL Immature Gran % (Auto) 0.0 % Neut % (Auto) 65.6 % Lymph % (Auto) 20.9 % [place] % (Auto) 9.5 % Eos % (Auto) 3.7 % Baso % (Auto) 0.3 % Neut # (Auto) 2.29 (1.4-6.5) K/uL Lymph # (Auto) 0.73 L (1.2-3.4) K/uL [place] # (Auto) 0.33 (0.11-0.59) K/uL Eos # (Auto) 0.13 (0-0.5) K/uL Baso # (Auto) 0.01 (0-0.2) K/uL Immature Gran # (Auto) 0.00 (0.00-0.02) K/uL Absolute Nucleated RBC FABRICATION INSPECTOR Nucleated RBC % (auto) FABRICATION INSPECTOR Neutrophils % (Manual) FABRICATION INSPECTOR Band Neutrophils % FABRICATION INSPECTOR Lymphocytes % (Manual) FABRICATION INSPECTOR Prolymphocyte % FABRICATION INSPECTOR Reactive Lymphs % (Man) FABRICATION INSPECTOR Monocytes % (Manual) FABRICATION INSPECTOR Eosinophils % (Manual) FABRICATION INSPECTOR Basophils % (Manual) FABRICATION INSPECTOR Metamyelocytes % (Man) FABRICATION INSPECTOR Myelocytes % (Man) FABRICATION INSPECTOR Promyelocytes % (Man) FABRICATION INSPECTOR Blast Cells % (Manual) FABRICATION INSPECTOR Plasma Cell % (Manual) FABRICATION INSPECTOR Other Cells % FABRICATION INSPECTOR Nucleated RBC % FABRICATION INSPECTOR Neutrophils # (Manual) FABRICATION INSPECTOR Band Neutrophils # FABRICATION INSPECTOR Total Absolute Neuts FABRICATION INSPECTOR Lymphocytes # (Manual) FABRICATION INSPECTOR Prolymphocyte # FABRICATION INSPECTOR Reactive Lymphs # FABRICATION INSPECTOR Total Abs Lymphocytes FABRICATION INSPECTOR Monocytes # (Manual) FABRICATION INSPECTOR Eosinophils # (Manual) FABRICATION INSPECTOR Basophils # (Manual) FABRICATION INSPECTOR Metamyelocytes # (Man) FABRICATION INSPECTOR Myelocytes # (Manual) FABRICATION INSPECTOR Promyelocytes # (Man) FABRICATION INSPECTOR Blast Cells # (Man) FABRICATION INSPECTOR Plasma Cell # (Manual) FABRICATION INSPECTOR Other Cells # FABRICATION INSPECTOR Nucleated RBCs # (Man) FABRICATION INSPECTOR Hypersegmented Neuts FABRICATION INSPECTOR Hyposegmented Neuts FABRICATION INSPECTOR Hypogranular Neuts FABRICATION INSPECTOR Large Granular Lymphs FABRICATION INSPECTOR # Lrg Granular Lymphs FABRICATION INSPECTOR Hairy Cells FABRICATION INSPECTOR Smudge Cells FABRICATION INSPECTOR Toxic Granulation FABRICATION INSPECTOR Toxic Vacuolation FABRICATION INSPECTOR Dohle Bodies FABRICATION INSPECTOR Merrick Rods FABRICATION INSPECTOR Platelet Estimate FABRICATION INSPECTOR Hypogranular Platelets FABRICATION INSPECTOR Clumped Platelets FABRICATION INSPECTOR Giant Platelets FABRICATION INSPECTOR Platelet Satelliting FABRICATION INSPECTOR RBC Morphology Unremarkable Polychromasia FABRICATION INSPECTOR Hypochromasia FABRICATION INSPECTOR Poikilocytosis FABRICATION INSPECTOR Basophilic Stippling FABRICATION INSPECTOR Anisocytosis FABRICATION INSPECTOR Microcytosis FABRICATION INSPECTOR Macrocytosis FABRICATION INSPECTOR Spherocytes FABRICATION INSPECTOR Pappenheimer Bodies FABRICATION INSPECTOR Sickle Cells FABRICATION INSPECTOR Target Cells FABRICATION INSPECTOR Tear Drop Cells FABRICATION INSPECTOR Ovalocytes FABRICATION INSPECTOR Stomatocytes FABRICATION INSPECTOR Silverio-Derma Bodies FABRICATION INSPECTOR Echinocytes FABRICATION INSPECTOR Acanthocytes (Spur) FABRICATION INSPECTOR Rouleaux FABRICATION INSPECTOR RBC Agglutinates FABRICATION INSPECTOR Schistocytes FABRICATION INSPECTOR RBC Morph Comment FABRICATION INSPECTOR Sezary Cell FABRICATION INSPECTOR PT Cancelled INR Cancelled APTT Cancelled PTT Ratio Cancelled POC Sodium (135-144) mmol/L Sodium 138 (136-145) mmol/L POC Potassium (3.3-5.0) mmol/L Potassium (3.5-5.1) mmol/L POC Chloride (101-112) mmol/L Chloride 106 (98-107) mmol/L Carbon Dioxide 26 (21-32) mmol/L POC Total CO2 (24-31) mmol/L Anion Gap 6.0 (3-11) POC Anion Gap (16-25) mmol/L POC BUN (7-18) mg/dl BUN 38 H (7-18) mg/dl Creatinine 1.32 (0.6-1.4) mg/dl POC Creatinine (0.6-1.3) mg/dl Est Cr Clr Drug Dosing 49.3 ml/min Est GFR ( Amer) 59.0 ml/min Est GFR (Non-Af Amer) 50.9 ml/min BUN/Creatinine Ratio 28.6 H (10-20) Glucose 112 H (70-99) mg/dl POC Glucose (other) (70-99) mg/dl Calcium 8.2 L (8.5-10.1) mg/dl POC Ioniz Calcium Ana Cristina (1.12-1.32) mmol/l Total Bilirubin 1.5 H (0.2-1) mg/dl AST (15-37) U/L ALT 58 (12-78) U/L Alkaline Phosphatase 78 (45-117) U/L Lactate Dehydrogenase (87-241) U/L Total Creatine Kinase (39-308) U/L CK-MB (CK-2) 1.5 (0.5-3.6) ng/ml Troponin I < 0.015 (0-0.045) ng/ml Total Protein 5.1 L (6.4-8.2) gm/dl Albumin 2.5 L (3.4-5.0) gm/dl Globulin 2.6 (2.5-4.0) gm/dl Albumin/Globulin Ratio 1.0 (0.9-2) Lipase 53 L (73-393) U/L COVID-19 Eval Order SARS-CoV-2 (PCR) (Negative) Blood Type Antibody Screen Crossmatch 02/04/21 02/04/21 02/04/21 Range/Units 05:50 05:50 06:29 WBC (4.8-10.8) K/uL RBC (4.7-6.1) M/uL Hgb (14.0-18.0) g/dL POC Hgb (14.0-18.0) g/dl Hct (42-52) % POC Hct (42-52) % MCV (80-100) fL MCH (25-34) pg MCHC (32-36) g/dL RDW Std Deviation (36.4-46.3) fL RDW Coeff of Fatemeh (11.5-14.5) % Plt Count (130-400) K/uL MPV (7.4-10.4) fL Immature Gran % (Auto) % Neut % (Auto) % Lymph % (Auto) % [place] % (Auto) % Eos % (Auto) % Baso % (Auto) % Neut # (Auto) (1.4-6.5) K/uL Lymph # (Auto) (1.2-3.4) K/uL [place] # (Auto) (0.11-0.59) K/uL Eos # (Auto) (0-0.5) K/uL Baso # (Auto) (0-0.2) K/uL Immature Gran # (Auto) (0.00-0.02) K/uL Absolute Nucleated RBC Nucleated RBC % (auto) Neutrophils % (Manual) Band Neutrophils % Lymphocytes % (Manual) Prolymphocyte % Reactive Lymphs % (Man) Monocytes % (Manual) Eosinophils % (Manual) Basophils % (Manual) Metamyelocytes % (Man) Myelocytes % (Man) Promyelocytes % (Man) Blast Cells % (Manual) Plasma Cell % (Manual) Other Cells % Nucleated RBC % Neutrophils # (Manual) Band Neutrophils # Total Absolute Neuts Lymphocytes # (Manual) Prolymphocyte # Reactive Lymphs # Total Abs Lymphocytes Monocytes # (Manual) Eosinophils # (Manual) Basophils # (Manual) Metamyelocytes # (Man) Myelocytes # (Manual) Promyelocytes # (Man) Blast Cells # (Man) Plasma Cell # (Manual) Other Cells # Nucleated RBCs # (Man) Hypersegmented Neuts Hyposegmented Neuts Hypogranular Neuts Large Granular Lymphs # Lrg Granular Lymphs Hairy Cells Smudge Cells Toxic Granulation Toxic Vacuolation Dohle Bodies Merrick Rods Platelet Estimate Hypogranular Platelets Clumped Platelets Giant Platelets Platelet Satelliting RBC Morphology Polychromasia Hypochromasia Poikilocytosis Basophilic Stippling Anisocytosis Microcytosis Macrocytosis Spherocytes Pappenheimer Bodies Sickle Cells Target Cells Tear Drop Cells Ovalocytes Stomatocytes Silverio-Derma Bodies Echinocytes Acanthocytes (Spur) Rouleaux RBC Agglutinates Schistocytes RBC Morph Comment Sezary Cell PT INR APTT PTT Ratio POC Sodium (135-144) mmol/L Sodium (136-145) mmol/L POC Potassium (3.3-5.0) mmol/L Potassium (3.5-5.1) mmol/L POC Chloride (101-112) mmol/L Chloride (98-107) mmol/L Carbon Dioxide (21-32) mmol/L POC Total CO2 (24-31) mmol/L Anion Gap (3-11) POC Anion Gap (16-25) mmol/L POC BUN (7-18) mg/dl BUN (7-18) mg/dl Creatinine (0.6-1.4) mg/dl POC Creatinine (0.6-1.3) mg/dl Est Cr Clr Drug Dosing ml/min Est GFR ( Amer) ml/min Est GFR (Non-Af Amer) ml/min BUN/Creatinine Ratio (10-20) Glucose (70-99) mg/dl POC Glucose (other) (70-99) mg/dl Calcium (8.5-10.1) mg/dl POC Ioniz Calcium Ana Cristina (1.12-1.32) mmol/l Total Bilirubin (0.2-1) mg/dl AST (15-37) U/L ALT (12-78) U/L Alkaline Phosphatase (45-117) U/L Lactate Dehydrogenase (87-241) U/L Total Creatine Kinase (39-308) U/L CK-MB (CK-2) (0.5-3.6) ng/ml Troponin I (0-0.045) ng/ml Total Protein (6.4-8.2) gm/dl Albumin (3.4-5.0) gm/dl Globulin (2.5-4.0) gm/dl Albumin/Globulin Ratio (0.9-2) Lipase (73-393) U/L COVID-19 Eval Order Covid19 at [facility] SARS-CoV-2 (PCR) NEGATIVE (Negative) Blood Type O Positive Antibody Screen NEGATIVE Crossmatch See Detail 02/04/21 02/04/21 02/04/21 Range/Units 06:29 06:29 06:29 WBC (4.8-10.8) K/uL RBC (4.7-6.1) M/uL Hgb (14.0-18.0) g/dL POC Hgb (14.0-18.0) g/dl Hct (42-52) % POC Hct (42-52) % MCV (80-100) fL MCH (25-34) pg MCHC (32-36) g/dL RDW Std Deviation (36.4-46.3) fL RDW Coeff of Fatemeh (11.5-14.5) % Plt Count (130-400) K/uL MPV (7.4-10.4) fL Immature Gran % (Auto) % Neut % (Auto) % Lymph % (Auto) % [place] % (Auto) % Eos % (Auto) % Baso % (Auto) % Neut # (Auto) (1.4-6.5) K/uL Lymph # (Auto) (1.2-3.4) K/uL [place] # (Auto) (0.11-0.59) K/uL Eos # (Auto) (0-0.5) K/uL Baso # (Auto) (0-0.2) K/uL Immature Gran # (Auto) (0.00-0.02) K/uL Absolute Nucleated RBC Nucleated RBC % (auto) Neutrophils % (Manual) Band Neutrophils % Lymphocytes % (Manual) Prolymphocyte % Reactive Lymphs % (Man) Monocytes % (Manual) Eosinophils % (Manual) Basophils % (Manual) Metamyelocytes % (Man) Myelocytes % (Man) Promyelocytes % (Man) Blast Cells % (Manual) Plasma Cell % (Manual) Other Cells % Nucleated RBC % Neutrophils # (Manual) Band Neutrophils # Total Absolute Neuts Lymphocytes # (Manual) Prolymphocyte # Reactive Lymphs # Total Abs Lymphocytes Monocytes # (Manual) Eosinophils # (Manual) Basophils # (Manual) Metamyelocytes # (Man) Myelocytes # (Manual) Promyelocytes # (Man) Blast Cells # (Man) Plasma Cell # (Manual) Other Cells # Nucleated RBCs # (Man) Hypersegmented Neuts Hyposegmented Neuts Hypogranular Neuts Large Granular Lymphs # Lrg Granular Lymphs Hairy Cells Smudge Cells Toxic Granulation Toxic Vacuolation Dohle Bodies Merrick Rods Platelet Estimate Hypogranular Platelets Clumped Platelets Giant Platelets Platelet Satelliting RBC Morphology Polychromasia Hypochromasia Poikilocytosis Basophilic Stippling Anisocytosis Microcytosis Macrocytosis Spherocytes Pappenheimer Bodies Sickle Cells Target Cells Tear Drop Cells Ovalocytes Stomatocytes Silverio-Derma Bodies Echinocytes Acanthocytes (Spur) Rouleaux RBC Agglutinates Schistocytes RBC Morph Comment Sezary Cell PT 17.4 H INR 1.8 H APTT PTT Ratio POC Sodium (135-144) mmol/L Sodium 139 (136-145) mmol/L POC Potassium (3.3-5.0) mmol/L Potassium 3.5 3.4 L (3.5-5.1) mmol/L POC Chloride (101-112) mmol/L Chloride 107 (98-107) mmol/L Carbon Dioxide 27 (21-32) mmol/L POC Total CO2 (24-31) mmol/L Anion Gap 5.0 (3-11) POC Anion Gap (16-25) mmol/L POC BUN (7-18) mg/dl BUN 35 H (7-18) mg/dl Creatinine 1.34 (0.6-1.4) mg/dl POC Creatinine (0.6-1.3) mg/dl Est Cr Clr Drug Dosing 48.5 ml/min Est GFR ( Amer) 58.0 ml/min Est GFR (Non-Af Amer) 50.0 ml/min BUN/Creatinine Ratio 25.9 H (10-20) Glucose 110 H (70-99) mg/dl POC Glucose (other) (70-99) mg/dl Calcium 8.0 L (8.5-10.1) mg/dl POC Ioniz Calcium Ana Cristina (1.12-1.32) mmol/l Total Bilirubin 1.2 H (0.2-1) mg/dl AST 70 H (15-37) U/L ALT 57 (12-78) U/L Alkaline Phosphatase 76 (45-117) U/L Lactate Dehydrogenase (87-241) U/L Total Creatine Kinase 443 H (39-308) U/L CK-MB (CK-2) (0.5-3.6) ng/ml Troponin I (0-0.045) ng/ml Total Protein 5.5 L (6.4-8.2) gm/dl Albumin 2.5 L (3.4-5.0) gm/dl Globulin 3.0 (2.5-4.0) gm/dl Albumin/Globulin Ratio 0.8 L (0.9-2) Lipase (73-393) U/L COVID-19 Eval Order SARS-CoV-2 (PCR) (Negative) Blood Type Antibody Screen Crossmatch 02/04/21 02/04/21 Range/Units 06:29 06:45 WBC (4.8-10.8) K/uL RBC (4.7-6.1) M/uL Hgb (14.0-18.0) g/dL POC Hgb 6.8 L* (14.0-18.0) g/dl Hct (42-52) % POC Hct 20 L* (42-52) % MCV (80-100) fL MCH (25-34) pg MCHC (32-36) g/dL RDW Std Deviation (36.4-46.3) fL RDW Coeff of Fatemeh (11.5-14.5) % Plt Count (130-400) K/uL MPV (7.4-10.4) fL Immature Gran % (Auto) % Neut % (Auto) % Lymph % (Auto) % [place] % (Auto) % Eos % (Auto) % Baso % (Auto) % Neut # (Auto) (1.4-6.5) K/uL Lymph # (Auto) (1.2-3.4) K/uL [place] # (Auto) (0.11-0.59) K/uL Eos # (Auto) (0-0.5) K/uL Baso # (Auto) (0-0.2) K/uL Immature Gran # (Auto) (0.00-0.02) K/uL Absolute Nucleated RBC Nucleated RBC % (auto) Neutrophils % (Manual) Band Neutrophils % Lymphocytes % (Manual) Prolymphocyte % Reactive Lymphs % (Man) Monocytes % (Manual) Eosinophils % (Manual) Basophils % (Manual) Metamyelocytes % (Man) Myelocytes % (Man) Promyelocytes % (Man) Blast Cells % (Manual) Plasma Cell % (Manual) Other Cells % Nucleated RBC % Neutrophils # (Manual) Band Neutrophils # Total Absolute Neuts Lymphocytes # (Manual) Prolymphocyte # Reactive Lymphs # Total Abs Lymphocytes Monocytes # (Manual) Eosinophils # (Manual) Basophils # (Manual) Metamyelocytes # (Man) Myelocytes # (Manual) Promyelocytes # (Man) Blast Cells # (Man) Plasma Cell # (Manual) Other Cells # Nucleated RBCs # (Man) Hypersegmented Neuts Hyposegmented Neuts Hypogranular Neuts Large Granular Lymphs # Lrg Granular Lymphs Hairy Cells Smudge Cells Toxic Granulation Toxic Vacuolation Dohle Bodies Merrick Rods Platelet Estimate Hypogranular Platelets Clumped Platelets Giant Platelets Platelet Satelliting RBC Morphology Polychromasia Hypochromasia Poikilocytosis Basophilic Stippling Anisocytosis Microcytosis Macrocytosis Spherocytes Pappenheimer Bodies Sickle Cells Target Cells Tear Drop Cells Ovalocytes Stomatocytes Silverio-Derma Bodies Echinocytes Acanthocytes (Spur) Rouleaux RBC Agglutinates Schistocytes RBC Morph Comment Sezary Cell PT INR APTT PTT Ratio POC Sodium 137 (135-144) mmol/L Sodium (136-145) mmol/L POC Potassium 3.5 (3.3-5.0) mmol/L Potassium (3.5-5.1) mmol/L POC Chloride 99 L (101-112) mmol/L Chloride (98-107) mmol/L Carbon Dioxide (21-32) mmol/L POC Total CO2 25 (24-31) mmol/L Anion Gap (3-11) POC Anion Gap 17.0 (16-25) mmol/L POC BUN 33 H (7-18) mg/dl BUN (7-18) mg/dl Creatinine (0.6-1.4) mg/dl POC Creatinine 1.5 H (0.6-1.3) mg/dl Est Cr Clr Drug Dosing ml/min Est GFR ( Amer) ml/min Est GFR (Non-Af Amer) ml/min BUN/Creatinine Ratio (10-20) Glucose (70-99) mg/dl POC Glucose (other) 111 H (70-99) mg/dl Calcium (8.5-10.1) mg/dl POC Ioniz Calcium Ana Cristina 1.17 (1.12-1.32) mmol/l Total Bilirubin (0.2-1) mg/dl AST (15-37) U/L ALT (12-78) U/L Alkaline Phosphatase (45-117) U/L Lactate Dehydrogenase 258 H (87-241) U/L Total Creatine Kinase (39-308) U/L CK-MB (CK-2) (0.5-3.6) ng/ml Troponin I (0-0.045) ng/ml Total Protein (6.4-8.2) gm/dl Albumin (3.4-5.0) gm/dl Globulin (2.5-4.0) gm/dl Albumin/Globulin Ratio (0.9-2) Lipase (73-393) U/L COVID-19 Eval Order SARS-CoV-2 (PCR) (Negative) Blood Type Antibody Screen Crossmatch Administered Medications Atorvastatin Calcium (Atorvastatin 40 Mg Tab) 80 mg PO HS PRAKASH Stop: 03/06/21 20:59 Last Admin: 02/04/21 19:31 Dose: 80 mg Documented by: [id number] Pantoprazole Sodium 40 mg/ (Syringe) 10 mls @ 5 mls/min IV BID PRAKASH Stop: 03/06/21 09:59 Last Admin: 02/04/21 19:31 Dose: 5 mls/min Documented by: [id number] Admin: 02/04/21 10:58 Dose: 5 mls/min Documented by: [id number] Levothyroxine Sodium (Levothyroxine Sodium 125 Mcg Tablet) 125 mcg PO DAILYBB [facility] Stop: 03/06/21 09:59 Last Admin: 02/04/21 10:57 Dose: 125 mcg Documented by: [id number] Morphine Sulfate (Morphine Sulfate 2 Mg/Ml Carp) 2 mg IV Q30M PRN PRN Reason: Chest Pain Stop: 02/18/21 09:39 Last Admin: 02/04/21 19:29 Dose: 2 mg Documented by: [id number] Admin: 02/04/21 15:31 Dose: 2 mg Documented by: [id number] Admin: 02/04/21 12:20 Dose: 2 mg Documented by: [id number] Discontinued Medications Acetaminophen (Ofirmev) 1,000 mg in 100 mls @ 400 mls/hr IV NOW STA Stop: 02/04/21 06:41 Last Infusion: 02/04/21 07:14 Dose: 0 mls/hr Documented by: [id number] Admin: 02/04/21 06:40 Dose: 400 mls/hr Documented by: [id number] Sodium Chloride (Nss 1000ml) 1,000 mls @ 80 mls/hr IV .[id number] [facility] Stop: 02/04/21 22:09 Last Admin: 02/04/21 10:40 Dose: 80 mls/hr Documented by: [id number] Ioversol (Optiray 350 500ml) 112 ml IV ONCE ONE Stop: 02/04/21 07:04 Last Admin: 02/04/21 07:05 Dose: 112 ml Documented by: [id number] Imaging Data Attestation: I personally reviewed and interpreted this imaging study as layo ws: Radiologist's Impression: Chest X-Ray 02/04/21 05:46 XR chest 1V portable CLINICAL HISTORY: Chest Pain COMPARISON STUDY: Chest radiograph August 05, 2020. FINDINGS: There are median sternotomy wires and clips from bypass grafting. No pneumothorax or pleural effusion is noted. No evidence for pulmonary edema. Minimal linear left basilar opacity favors atelectasis or scarring. Cardiomegaly is unchanged. IMPRESSION: No acute cardiopulmonary findings. No significant change since prior exam. ACT 112: Negative or not required by law. Electronically signed by: Seb Bernal M.D. 02/04/2021 7:14 AM Lower Extremity CTA 02/04/21 06:29 CT ANGIOGRAPHY OF THE LEFT LOWER EXTREMITY CLINICAL HISTORY: Left leg hematoma. COMPARISON STUDY: Left hip radiograph November 26, 2018. TECHNIQUE: Helical axial images of the left lower extremity were obtained during arterial phase following intravenous injection of 112 cc Optiray 320 IV. Sagittal and coronal reconstructed reviewed as well as maximal intensity projections on an independent 3-D workstation. A dose lowering technique was utilized adhering to the principles of ALARA. FINDINGS: Note is made of moderate subcutaneous edema of the left thigh and left lower extremity. No acute fracture within the left lower extremity is noted. No suspicious osseous lesion. Note is made of an intramuscular hematoma within the left biceps femoris that measures 15 x 6.1 x 4.5 cm. This is predominantly hyperdense. No active extravasation is identified. No additional hematomas are identified within the left lower extremity. No pseudoaneurysm is identified. There is mild atherosclerotic plaque within the left lower extremity. The major vessels are patent. There is no dissection. There is mild stenosis of the left tibioperoneal trunk. The left dorsalis pedis is somewhat diminutive. IMPRESSION: 1. 15 x 6.1 x 4.5 cm acute intramuscular hematoma within the left biceps femoris. No active extravasation. No additional hematomas. 2. Moderate subcutaneous edema of the left thigh and left lower extremity. 3. No acute fracture. 4. Mild atherosclerotic plaque within the left lower extremity. ACT 112: Negative or not required by law. Electronically signed by: Seb Bernal M.D. 02/04/2021 7:26 AM Discharge Plan Visit Data Chief Complaint: Chest Pain Stated Complaint: CHEST PAIN ED Provider: Archie Blevins Discharge Problem: Symptomatic anemia, Chest pain, H/O heart artery stent, S/P CABG (coronary artery bypass graft), Hematoma of left thigh, Elevated INR Patient Disposition: Admitted As Inpatient Discharge Instructions Interventions: ED Discharge Assessment Last Done: 02/04/21 09:00 Discharge Problem: Chest pain Qualifiers: Chest pain type: unspecified Qualified Code(s): R07.9 - Chest pain, unspecified Hematoma of left thigh Qualifiers: Encounter type: initial encounter Qualified Code(s): S70.12XA - Contusion of left thigh, initial encounter
[2021-02-04 05:58] LABS: Basophils # (auto) 0.01 K/uL (0-0.2); Basophils % (auto) 0.3 %; Eosinophils # (auto) 0.13 K/uL (0-0.5); Eosinophils % (auto) 3.7 %; Hemoglobin 7.3 g/dL (14.0-18.0); Lymphocytes # (auto) 0.73 K/uL (1.2-3.4); Lymphocytes % (auto) 20.9 %; Mean Corpuscular Hemoglobin 29.9 pg (25-34); Mean Corpuscular Hgb Conc 33.2 g/dL (32-36); Mean Corpuscular Volume 90.2 fL (80-100); Mean Platelet Volume 9.2 fL (7.4-10.4); Monocytes # (auto) 0.33 K/uL (0.11-0.59); Monocytes % (auto) 9.5 %; Neutrophils # (auto) 2.29 K/uL (1.4-6.5); Neutrophils % (auto) 65.6 %; Platelet Count 277 K/uL (130-400); RDW Coefficient of Variation 13.7 % (11.5-14.5); RDW Standard Deviation 45.6 fL (36.4-46.3); Red Blood Count 2.44 M/uL (4.7-6.1); White Blood Count 3.49 K/uL (4.8-10.8)
[2021-02-04 06:19] LABS: RBC Morphology Unremarkable
[2021-02-04] MEDS ORDERED: SODIUM CHLORIDE 0.9% 250 ML IV PRN (06:20)
[2021-02-04] MEDS ORDERED: ACETAMINOPHEN 1,000 MG/100 ML VIAL IV STA (06:27)
[2021-02-04 06:47] LABS: Alanine Aminotransferase 58 U/L (12-78); Albumin Level 2.5 gm/dl (3.4-5.0); Alkaline Phosphatase 78 U/L (45-117); BUN Creatinine Ratio 28.6 (10-20); Bilirubin,Total 1.5 mg/dl (0.2-1); Blood Urea Nitrogen 38 mg/dl (7-18); Calcium 8.2 mg/dl (8.5-10.1); Carbon Dioxide 26 mmol/L (21-32); Chloride 106 mmol/L (98-107); Creatine Kinase MB 1.5 ng/ml (0.5-3.6); Creatinine Clr Calc Pharmacy 49.3 ml/min; Est GFR (Non-African American) 50.9 ml/min; Globulin 2.6 gm/dl (2.5-4.0); Glucose 112 mg/dl (70-99); Lipase 53 U/L (73-393); Sodium 138 mmol/L (136-145); Total Protein 5.1 gm/dl (6.4-8.2); Troponin I < 0.015 ng/ml (0-0.045)
[2021-02-04 06:58] LABS: iSTAT Creatinine 1.5 mg/dl (0.6-1.3); iSTAT Hemoglobin 6.8 g/dl (14.0-18.0); iSTAT Ionized Calcium 1.17 mmol/l (1.12-1.32); iSTAT Potassium 3.5 mmol/L (3.3-5.0)
[2021-02-04 06:59] LABS: INR 1.8 (0.9-1.1); Prothrombin Time 17.4 Seconds (9.0-12.0)
[2021-02-04] MEDS ORDERED: OPTIRAY 350 500ml IV ONE (07:03)
[2021-02-04 07:13] LABS: Potassium 3.4 mmol/L (3.5-5.1)
--- NOTE | 2021-02-04 07:15 | XRay Report ---
XR chest 1V portable CLINICAL HISTORY: Chest Pain COMPARISON STUDY: Chest radiograph August 05, 2020. FINDINGS: There are median sternotomy wires and clips from bypass grafting. No pneumothorax or pleura l effusion is noted. No evidence for pulmonary edema. Minimal linear left basilar opacity favors atel ectasis or scarring. Cardiomegaly is unchanged. IMPRESSION: No acute cardiopulmonary findings. No significant change since prior exam. ACT 112: Negative or not required by law. Electronically signed by: Seb Bernal M.D. 02/04/2021 7:14 AM
[2021-02-04 07:20] LABS: Albumin Level 2.5 gm/dl (3.4-5.0); BUN Creatinine Ratio 25.9 (10-20); Creatinine Clr Calc Pharmacy 48.5 ml/min; Potassium 3.5 mmol/L (3.5-5.1)
[2021-02-04 07:22] LABS: Albumin Globulin Ratio 0.8 (0.9-2); Bilirubin,Total 1.2 mg/dl (0.2-1); Total Protein 5.5 gm/dl (6.4-8.2)
--- NOTE | 2021-02-04 07:27 | CT Scan Report ---
CT ANGIOGRAPHY OF THE LEFT LOWER EXTREMITY CLINICAL HISTORY: Left leg hematoma. COMPARISON STUDY: Left hip radiograph November 26, 2018. TECHNIQUE: Helical axial images of the left lower extremity were obtained during arterial phase follo wing intravenous injection of 112 cc Optiray 320 IV. Sagittal and coronal reconstructed reviewed as w ell as maximal intensity projections on an independent 3-D workstation. A dose lowering technique was utilized adhering to the principles of ALARA. FINDINGS: Note is made of moderate subcutaneous edema of the left thigh and left lower extremity. No acute fracture within the left lower extremity is noted. No suspicious osseous lesion. Note is made o f an intramuscular hematoma within the left biceps femoris that measures 15 x 6.1 x 4.5 cm. This is p redominantly hyperdense. No active extravasation is identified. No additional hematomas are identifie d within the left lower extremity. No pseudoaneurysm is identified. There is mild atherosclerotic elias que within the left lower extremity. The major vessels are patent. There is no dissection. There is m ild stenosis of the left tibioperoneal trunk. The left dorsalis pedis is somewhat diminutive. IMPRESSION: 1. 15 x 6.1 x 4.5 cm acute intramuscular hematoma within the left biceps femoris. No active extravasa tion. No additional hematomas. 2. Moderate subcutaneous edema of the left thigh and left lower extremity. 3. No acute fracture. 4. Mild atherosclerotic plaque within the left lower extremity. ACT 112: Negative or not required by law. Electronically signed by: Seb Bernal M.D. 02/04/2021 7:26 AM
--- NOTE | 2021-02-04 08:51 | History & Physical Report ---
Date of Service February 04, 2021 Assessment & Plan (1) Chest pain: 80yo male with PMH including CABG (2003), cardiac catheterization with stent placement (x1, 2009), HTN, HLD, pAfib, DVT, CKD3, PUD, hemorrhoidectomy, BPH presents via EMS with acute-onset chest pain, hypotension, anemia, and lower left extremity hematoma. Chest pain Likely ischemic in nature in the setting of severe anemia s/p ASA, nitroglycerin administered by EMS EKG with known LBB, non-contiguous ST-segment changes Initial troponin negative, trend q6h x2 CXR negative for acute findings Admit to PCU tele Morphine 2mg IV q30min prn Zofran prn EKG if any recurrence of chest pain Cardiology consulted Anemia Likely acute blood loss anemia 2/2 leg hematoma in the setting of supratherapeutic INR 1u pRBC transfused; CBC q6h INR 1.8 on admission CTA LLE shows acute intramuscular hematoma within left biceps femoris without signs of active extravasation Holding home warfarin FOBT Transfuse for Hgb<8.0 or recurrence of ischemic-pattern CP +/- EKG changes Hypotension Low of 96/47 after admission, improved in ED with volume repletion NSS @ 80mL/hr x 1 bag Hold home antihypertensives Protonix IV History of DVT Holding pharmacologic anticoagulation as above SCDs as tolerated Paroxysmal atrial fibrillation Patient currently in normal sinus rhythm Holding home warfarin Cardiology consulted CKD3 Caution with IVF Avoid nephrotoxins CAD, HLD Continue home atorvastatin Peripheral neuropathy Patient's home regimen includes 390MME/day of opioid pain meds Patient reports this is for peripheral neuropathy Will obtain additional history and encourage patient to seek a safer pain medication regimen on an outpatient basis Pain control as above FEN: NPO, NSS @ 80mL/hr x 1 bag Code status: need to discuss with patient DVT ppx: SCDs if tolerated - pharmacologic ppx contraindicated Isolation: none Consults: cardiology Dispo: PCU/tele History of Present Illness Primary Care Provider: Yi Alvares MD 80yo male with history of HTN, HLD, CKD3, peripheral neuropathy, hypothyroidism, DVT, ischemic heart disease s/p CABG (2003), cardiac catheterization (2009, stent x1 placed), and PUD presents to the ED with sudden- onset crushing substernal chest pain as well as fatigue. Patient was seen in the ED on 01/30 for a left thigh hematoma after bumping into his trailer, and was found to have an INR of 5.9. Patient was treated with vitamin K before being discharged home. At home, patient reports his hematoma continued to grow, but patient did not experience chest pain until last night when waking up to use the bathroom. Patient describes the chest pain as beneath his sternum, crushing in nature, 10/10 pain that does not radiate, associated with SOB and sweating. Patient called EMS and was treated en-route with ASA and nitroglycerin, which brought his pain down to 0/10. At time of interview, patient is comfortably resting in bed. Endorses LLE tenderness at the site of his thigh hematoma. Patient denies nausea, vomiting, abdominal pain, constipation, diarrhea, lightheadedness, dizziness, syncope, trauma since last ED visit, or other symptoms. Allergies Allergy/AdvReac Type Severity Reaction Status Date / Time terazosin Allergy Intermediate RASH Verified 02/04/21 07:16 pseudoephedrine Allergy Unknown Unknown Verified 02/04/21 07:16 ART Inhibitors AdvReac Mild COUGH Verified 02/04/21 07:16 isosorbide AdvReac Mild Headache Verified 02/04/21 07:16 Nitrate Analogues AdvReac Mild Headache Verified 02/04/21 07:16 Home Medications Medication Instructions Recorded Confirmed Type amlodipine [Norvasc] 10 mg PO QPM 11/26/18 02/04/21 History atorvastatin [Lipitor] 80 mg PO HS 11/26/18 02/04/21 History cholecalciferol (vitamin D3) 1,000 unit PO QAM 11/26/18 02/04/21 History [Vitamin D3] hydralazine 50 mg PO BID 11/26/18 02/04/21 History levothyroxine 125 mcg PO QAM 11/26/18 02/04/21 History losartan [Cozaar] 50 mg PO BID 11/26/18 02/04/21 History metoprolol succinate [Toprol XL] 25 mg PO QAM 11/26/18 02/04/21 History multivitamin 1 tab PO QAM 11/26/18 02/04/21 History nitroglycerin [Nitrostat] 0.4 mg SUBLINGUAL DIRECTED PRN 11/26/18 02/04/21 History pantoprazole [Protonix] 40 mg PO QAM 11/26/18 02/04/21 History ascorbic acid (vitamin C) 1,000 mg PO BID 06/12/19 02/04/21 History cyclobenzaprine 10 mg PO BID PRN 06/12/19 02/04/21 History garlic 500 mg PO BID 06/12/19 02/04/21 History morphine 60 mg PO BID 06/12/19 02/04/21 History oxycodone 30 mg PO 6XD 06/12/19 02/04/21 History herbal drugs [Herbal Laxative] 2 tab PO QAM 05/29/20 02/04/21 History warfarin 5 mg PO WK 05/29/20 02/04/21 History aspirin 81 mg PO QAM 08/05/20 02/04/21 History warfarin 7.5 mg PO [id number] 08/05/20 02/04/21 History Past Med/Surg History Medical History (Updated 02/04/21 @ 23:40 by Archie Blevins MD) Anginal pain Atrial fibrillation BPH (benign prostatic hypertrophy) "s/p TURP 11/2010" Chest pain Chronic ischemic heart disease CKD (chronic kidney disease), stage III Dyslipidemia History of DVT (deep vein thrombosis) "06/2012- left upper extremity" History of peptic ulcer Hypertension Hypothyroidism PAF (paroxysmal atrial fibrillation) Peripheral neuropathy Sleep apnea Surgical History (Updated 02/04/21 @ 23:40 by Archie Blevins MD) H/O colonoscopy H/O esophagogastroduodenoscopy H/O heart artery stent H/O shoulder surgery S/P appendectomy 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 3" S/P hemorrhoidectomy S/P lumbar spinal fusion S/P TURP (transurethral resection of prostate) Family History Other No pertinent family history in first degree relatives Social History Smoking Status: Never smoker Tobacco Type: Cigarettes Cigarettes Per Day: 3 ppd; Second Hand Exposure: No; Hx Alcohol Use: No Hx Substance Use: Yes Last Used Substance: Hours (ago) Last Used Substance Other:: appx 7pm saturday night Substance Use Type Other:: pain management program with morphine and oxycodone Preferred Language: [place] Communication Ability: Effective Industrial Relations Representative Required: No Beliefs That Will Affect Care: None Current Living Situation: Spouse Other Information That Helps Us Care for You: No Feels Safe at Home: Yes Safety Concerns: Feels Safe At This Time Assistive Devices: None Review of Systems Review of Systems: See HPI Physical Exam Physical Exam: Constitutional: well-appearing, no acute distress HEENT: NCAT, no conjunctival injection CV: regular rhythm, no murmur appreciated, extremities well-perfused, no LLE edema Resp: CTABL, no wheezes/rales/rhonchi appreciated, no increased work of breathing GI: soft, nondistended, nontender, BS normoactive MSK: no chest wall tenderness; ecchymosis and mild tenderness of the LLE at the posterior, medial, and lateral thigh that extends to the posterior and medial side of his calf, no calf tenderness bilaterally Neuro: AOx4, no focal neurological deficits appreciated Psych: cooperative, pleasant, appropriate rate/volume/quantity of speech Results & Data Results & Data ([facility]) Vital Signs (Past 12 Hours) Vital Signs Temp Pulse Pulse Resp BP BP Pulse Ox 02/04/21 08:16 63 12 101/50 L 98 02/04/21 08:13 36.8 C 64 16 102/49 L 98 02/04/21 07:55 36.5 C 70 18 99/52 L 99 02/04/21 07:12 74 20 122/61 98 02/04/21 06:30 76 17 131/61 96 02/04/21 06:00 73 14 125/57 L 96 02/04/21 05:49 37.4 C 73 16 131/64 98 02/04/21 05:47 74 13 131/64 98 Supervising Physician Co-Signing Physician Notes I personally examined the patient and verified all watkins points of history and exam, discussed case, and agree with decision making with Dr Safnord Feeling better than before. Is at rest, but no further chest pain. Leg feels okay. Vitals noted, in general he is awake and alert pleasant no distress. HEENT normocephalic atraumatic mucous membranes moist. Breathing unlabored no accessory muscle use good effort. Left lower extremity with large diffuse area of bruising posterior laterally, no crepitus or open lesions. No focal neuro deficits. Bruising is not circumferential. Coumadin coagulopathy prior to admission, with minor trauma leading to fairly massive thigh hematoma and acute blood loss anemia precipitating angina due to lack of oxygen carrying capacity from said acute blood loss anemia now treated with 1 unit transfusion with apparent hemodynamic stability and resolution in his angina. Follow. otherwise as above Resident Activity Tracking Resident Involvement: Resident Care Provided Care Provided: Adult Hospital Medicine
[2021-02-04] MEDS ORDERED: ONDANSETRON INJ 2 MG/ML 2 ML VIAL IV PRN (09:40)
[2021-02-04] MEDS ORDERED: SODIUM CHLORIDE 0.9% 1000ML 1,000 ML IV SCH (09:40)
[2021-02-04] MEDS ORDERED: ACETAMINOPHEN 325 MG TAB PO PRN (09:40)
[2021-02-04] MEDS ORDERED: NITROGLYCERIN SL 0.4 MG/TAB TAB SL PRN (09:40)
[2021-02-04] MEDS ORDERED: CYCLOBENZAPRINE HCL 10 MG TAB PO PRN (09:52)
--- NOTE | 2021-02-04 10:49 | Cardiology Consultation ---
Date of Consultation February 04, 2021 Assessment & Plan (1) Symptomatic anemia: (2) Supratherapeutic INR: (3) Hematoma of left thigh: (4) S/P CABG (coronary artery bypass graft): (5) Atrial fibrillation: (6) Chronic ischemic heart disease: Given the patient's severe coronary artery disease including severe wrangell vessel disease and patent grafts by last cardiac catheterization 6 years ago I would have no surprise whatsoever that he is having chest discomfort in the setting of a hemoglobin of 6.9. I do not believe this represents acute coronary syndrome. I will order a 2D echocardiogram to evaluate for any wall motion abnormalities. Obviously, his Coumadin has been held and will not be restarted. Likely he is in sinus rhythm at this time. Recommend transfusing to maintain hemoglobin at least above 9 or greater than 10 should he have any further chest discomfort. Otherwise, continue outpatient medical regimen History of Present Illness Reason for Consultation: Chest pain Requesting Physician: Family practice Attending Physician: Andre Benavidez, DO History of Present Illness Mr. Blanc is a very pleasant 80-year-old gentleman who follows very closely with Dr. Medina of our cardiology practice. He presented to [facility] on 02/04/2021 with complaints of chest discomfort. He states the other day he was doing work around his house when he simply backed into a metal bar and over the next few days a large hematoma developed. This was associate with significant leg pain. He then awoke early in the a.m. today with chest discomfort. He describes a substernal pressure sensation similar to his previous anginal events. He came into the emergency department as found to be severely anemic with an INR of 6.8. His INR was also supratherapeutic at 5.7. Likely he was in sinus rhythm. He received a blood transfusion with resolution of his chest discomfort. PMHx as per most recent outpatient cardiology note: 1. Long-standing history of coronary artery disease 1. Status post CABG x 3 in 2003, age 64, [facility]. OATES to LAD, saphenous vein graft to obtuse marginal and PDA 2. Status post BMS to the LCX in February 2010. 3. Left median nerve neuropathy, status post failed left radial artery approach, subsequent left brachial artery approach. Cardiac catheterization 06/11/12. 4. Left upper extremity DVT, diagnosed on duplex 06/16/12, post cath 5. Cardiac catheterization, last on 12/01/14 at [facility] [place]: Patent grafts. Severe wrangell vessel disease for which medical management was recommended 6. 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 7. CCS Class III angina 8. Poor tolerance to long-acting nitroglycerin (Imdur): - headache and debilitating fatigue. 9. Poor tolerance to Ranexa. 2. Paroxysmal atrial fibrillation, post op CABG with recurrence during hospitalization in 11/2012 3. [id number] Score appears to be 6 points. 4. Admission in June 2019 with a spontaneous right thigh hematoma with presumed high-grade muscle tear. Hemoglobin was 7.0. Status post transfusion 5. Stage III chronic kidney disease 6. Dyslipidemia 7. Intolerance of Loyd inhibitors, nitrates, and Ranexa 8. Renal artery stenosis left greater than right- Conservative therapy initially recommended, consultation with Nephrology and vascular surgery and Wade, June, 9. Chart history of mesenteric artery stenosis 10. Hereditary and idiopathic peripheral neuropathy 11. Duodenal ulcer 12. Hypothyroidism. 13. BPH 14. Impotence. 15. Restless legs syndrome Allergies Allergy/AdvReac Type Severity Reaction Status Date / Time terazosin Allergy Intermediate RASH Verified 02/04/21 07:16 pseudoephedrine Allergy Unknown Unknown Verified 02/04/21 07:16 LOYD Inhibitors AdvReac Mild COUGH Verified 02/04/21 07:16 isosorbide AdvReac Mild Headache Verified 02/04/21 07:16 Nitrate Analogues AdvReac Mild Headache Verified 02/04/21 07:16 Home Medications Medication Instructions Recorded Confirmed Type amlodipine [Norvasc] 10 mg PO QPM 11/26/18 02/04/21 History atorvastatin [Lipitor] 80 mg PO HS 11/26/18 02/04/21 History cholecalciferol (vitamin D3) 1,000 unit PO QAM 11/26/18 02/04/21 History [Vitamin D3] hydralazine 50 mg PO BID 11/26/18 02/04/21 History levothyroxine 125 mcg PO QAM 11/26/18 02/04/21 History losartan [Cozaar] 50 mg PO BID 11/26/18 02/04/21 History metoprolol succinate [Toprol XL] 25 mg PO QAM 11/26/18 02/04/21 History multivitamin 1 tab PO QAM 11/26/18 02/04/21 History nitroglycerin [Nitrostat] 0.4 mg SUBLINGUAL DIRECTED PRN 11/26/18 02/04/21 History pantoprazole [Protonix] 40 mg PO QAM 11/26/18 02/04/21 History ascorbic acid (vitamin C) 1,000 mg PO BID 06/12/19 02/04/21 History cyclobenzaprine 10 mg PO BID PRN 06/12/19 02/04/21 History garlic 500 mg PO BID 06/12/19 02/04/21 History morphine 60 mg PO BID 06/12/19 02/04/21 History oxycodone 30 mg PO 6XD 06/12/19 02/04/21 History herbal drugs [Herbal Laxative] 2 tab PO QAM 05/29/20 02/04/21 History warfarin 5 mg PO WK 05/29/20 02/04/21 History aspirin 81 mg PO QAM 08/05/20 02/04/21 History warfarin 7.5 mg PO 6XWK 08/05/20 02/04/21 History Patient History Medical History Anginal pain Atrial fibrillation BPH (benign prostatic hypertrophy) "s/p TURP 11/2010" Chest pain Chronic ischemic heart disease CKD (chronic kidney disease), stage III Dyslipidemia History of DVT (deep vein thrombosis) "06/2012- left upper extremity" History of peptic ulcer Hypertension Hypothyroidism PAF (paroxysmal atrial fibrillation) Peripheral neuropathy Sleep apnea Surgical History H/O colonoscopy H/O esophagogastroduodenoscopy H/O heart artery stent H/O shoulder surgery S/P appendectomy 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 3" S/P hemorrhoidectomy S/P lumbar spinal fusion S/P TURP (transurethral resection of prostate) Family History Other No pertinent family history in first degree relatives Social History Smoking Status: Never smoker Tobacco Type: Cigarettes Cigarettes Per Day: 3 ppd; Second Hand Exposure: No; Hx Alcohol Use: No Hx Substance Use: Yes Last Used Substance: Hours (ago) Last Used Substance Other:: appx 7pm saturday night Substance Use Type Other:: pain management program with morphine and oxycodone Preferred Language: Gambian Communication Ability: Effective Tool Carrier Required: No Beliefs That Will Affect Care: None Current Living Situation: Spouse Other Information That Helps Us Care for You: No Feels Safe at Home: Yes Safety Concerns: Feels Safe At This Time Assistive Devices: None Review of Systems Review of Systems: All systems reviewed & are unremarkable except as noted in HPI & below Physical Exam Physical Exam: General: Awake, alert and oriented x 3. No acute distress. HEENT: Normocephalic, atraumatic. Pupils equal, round and reactive to light and accommodation. Extraocular muscles are intact. Anicteric sclera. Moist mucous membranes. Neck: No JVD. No bruit. Cardiovascular: Regular. Positive S-4. Normal S-1 and S-2. No S-3. No murmurs or rubs. Pulmonary: Clear to auscultation B/L. No rales, rhonchi or wheezing Abdomen: Bowel sounds x 4, soft. No rebound, guarding or tenderness. No organomegaly. Extremities: No clubbing, cyanosis or edema. +2 pedal pulses bilaterally. Skin: Warm and dry. Very large left thigh posterior hematoma. Results & Data ([facility]) Vital Signs (Past 12 Hours) Vital Signs Temp Pulse Pulse Resp BP BP Pulse Ox 02/04/21 09:58 37 C 65 20 138/73 96 02/04/21 09:43 37 C 64 65 20 138/73 96 02/04/21 08:58 36.7 C 65 17 112/56 L 98 02/04/21 08:45 36.5 C 63 17 96/47 L 98 02/04/21 08:28 36.6 C 62 16 99/49 L 95 02/04/21 08:16 63 12 101/50 L 98 02/04/21 08:13 36.8 C 64 16 102/49 L 98 02/04/21 07:55 36.5 C 70 18 99/52 L 99 02/04/21 07:12 74 20 122/61 98 02/04/21 06:30 76 17 131/61 96 02/04/21 06:00 73 14 125/57 L 96 02/04/21 05:49 37.4 C 73 16 131/64 98 02/04/21 05:47 74 13 131/64 98 Pulse Ox 02/04/21 09:58 02/04/21 09:43 96 02/04/21 08:58 02/04/21 08:45 02/04/21 08:28 02/04/21 08:16 02/04/21 08:13 02/04/21 07:55 02/04/21 07:12 02/04/21 06:30 02/04/21 06:00 02/04/21 05:49 02/04/21 05:47 (1) Hematoma of left thigh Encounter type: initial encounter Qualified Code(s): S70.12XA - Contusion of left thigh, initial encounter
[2021-02-04] MEDS: LEVOTHYROXINE SODIUM 125 MCG TABLET PO SCH (10:57)
[2021-02-04] MEDS: PANTOprazole 40 MG in SYRINGE 0 ML IV SCH ×2 (10:58→19:31)
[2021-02-04] MEDS: MoRPHine SULFATE 2 MG/ML CARP IV PRN ×3 (12:20→19:29)
[2021-02-04 13:20] LABS: Basophils # (auto) 0.03 K/uL (0-0.2); Basophils % (auto) 0.8 %; Eosinophils # (auto) 0.09 K/uL (0-0.5); Eosinophils % (auto) 2.5 %; Hematocrit (blood only) 25.1 % (42-52); Hemoglobin 8.2 g/dL (14.0-18.0); Immature Granulocytes # (auto) 0.01 K/uL (0.00-0.02); Immature Granulocytes % (auto) 0.3 %; Lymphocytes # (auto) 0.71 K/uL (1.2-3.4); Lymphocytes % (auto) 19.3 %; Mean Corpuscular Hemoglobin 29.4 pg (25-34); Mean Corpuscular Hgb Conc 32.7 g/dL (32-36); Mean Platelet Volume 8.6 fL (7.4-10.4); Monocytes % (auto) 8.2 %; Neutrophils # (auto) 2.53 K/uL (1.4-6.5); Neutrophils % (auto) 68.9 %; Platelet Count 205 K/uL (130-400); RDW Coefficient of Variation 13.8 % (11.5-14.5); RDW Standard Deviation 46.2 fL (36.4-46.3); Red Blood Count 2.79 M/uL (4.7-6.1); White Blood Count 3.67 K/uL (4.8-10.8)
--- NOTE | 2021-02-04 15:18 | Electrocardiogram Report ---
Test Reason : Blood Pressure : / mmHG Vent. Rate : 077 BPM Atrial Rate : 077 BPM P-R Int : 190 ms QRS Dur : 156 ms QT Int : 432 ms P-R-T Axes : 039 -37 086 degrees QTc Int : 488 ms Normal sinus rhythm Left axis deviation Left bundle branch block Abnormal ECG When compared with ECG of 05-AUG-2020 12:14, No significant change was found Confirmed by Ab Betancourt ([id number]) on 02/04/2021 3:18:21 PM Referred By: REFERRED SELF Confirmed By:Ab Betancourt
--- NOTE | 2021-02-04 18:22 | Billing Data ---
Date of Service February 04, 2021 Coding Level of Care Code 13771 Initial Inpt Care Lvl 3
[2021-02-04] MEDS: ATORVASTATIN 40 MG TAB PO SCH (19:31)
[2021-02-04 19:42] LABS: Basophils # (auto) 0.03 K/uL (0-0.2); Basophils % (auto) 0.8 %; Eosinophils # (auto) 0.14 K/uL (0-0.5); Eosinophils % (auto) 3.8 %; Hemoglobin 8.2 g/dL (14.0-18.0); Immature Granulocytes # (auto) 0.01 K/uL (0.00-0.02); Immature Granulocytes % (auto) 0.3 %; Lymphocytes # (auto) 0.59 K/uL (1.2-3.4); Lymphocytes % (auto) 15.9 %; Mean Corpuscular Hemoglobin 29.9 pg (25-34); Mean Corpuscular Hgb Conc 34.2 g/dL (32-36); Mean Corpuscular Volume 87.6 fL (80-100); Mean Platelet Volume 8.3 fL (7.4-10.4); Monocytes # (auto) 0.34 K/uL (0.11-0.59); Monocytes % (auto) 9.1 %; Neutrophils # (auto) 2.61 K/uL (1.4-6.5); Neutrophils % (auto) 70.1 %; Platelet Count 203 K/uL (130-400); RDW Coefficient of Variation 14.1 % (11.5-14.5); RDW Standard Deviation 45.5 fL (36.4-46.3); Red Blood Count 2.74 M/uL (4.7-6.1); White Blood Count 3.72 K/uL (4.8-10.8)
[2021-02-05] MEDS: MoRPHine SULFATE 2 MG/ML CARP IV PRN ×4 (01:33→13:23)
[2021-02-05] MEDS: LEVOTHYROXINE SODIUM 125 MCG TABLET PO SCH (05:15)
[2021-02-05 06:35] LABS: Basophils # (auto) 0.01 K/uL (0-0.2); Basophils % (auto) 0.3 %; Eosinophils # (auto) 0.16 K/uL (0-0.5); Eosinophils % (auto) 4.4 %; Hematocrit (blood only) 23.8 % (42-52); Lymphocytes # (auto) 0.56 K/uL (1.2-3.4); Lymphocytes % (auto) 15.4 %; Mean Corpuscular Hemoglobin 29.7 pg (25-34); Mean Corpuscular Hgb Conc 33.6 g/dL (32-36); Mean Corpuscular Volume 88.5 fL (80-100); Mean Platelet Volume 8.2 fL (7.4-10.4); Monocytes # (auto) 0.34 K/uL (0.11-0.59); Monocytes % (auto) 9.3 %; Neutrophils # (auto) 2.57 K/uL (1.4-6.5); Neutrophils % (auto) 70.6 %; Platelet Count 202 K/uL (130-400); RDW Coefficient of Variation 14.2 % (11.5-14.5); RDW Standard Deviation 46.2 fL (36.4-46.3); Red Blood Count 2.69 M/uL (4.7-6.1); White Blood Count 3.64 K/uL (4.8-10.8)
[2021-02-05] MEDS ORDERED: MoRPHine SULFATE 2 MG/ML CARP ONE (08:06)
[2021-02-05] MEDS: PANTOprazole 40 MG in SYRINGE 0 ML IV SCH ×2 (08:09→19:55)
[2021-02-05] MEDS ORDERED: SODIUM CHLORIDE 0.9% 250 ML IV PRN ×2 (08:48→08:55)
--- NOTE | 2021-02-05 10:45 | Electrocardiogram Report ---
Test Reason : Blood Pressure : / mmHG Vent. Rate : 077 BPM Atrial Rate : 077 BPM P-R Int : 182 ms QRS Dur : 152 ms QT Int : 452 ms P-R-T Axes : 033 -43 087 degrees QTc Int : 511 ms Normal sinus rhythm Left axis deviation Left bundle branch block Abnormal ECG When compared with ECG of 04-FEB-2021 05:46, No significant change was found Confirmed by Ab Betancourt ([id number]) on 02/05/2021 10:44:54 AM Referred By: REFERRED SELF Confirmed By:Ab Betancourt
[2021-02-05] MEDS: SENNA 8.6 MG TAB PO SCH (11:07)
[2021-02-05 11:17] LABS: INR 2.3 (0.9-1.1); Prothrombin Time 21.9 Seconds (9.0-12.0)
--- NOTE | 2021-02-05 12:14 | Cardiology Progress Note ---
Date of Service February 05, 2021 Assessment & Plan (1) Symptomatic anemia: (2) Supratherapeutic INR: (3) Hematoma of left thigh: (4) S/P CABG (coronary artery bypass graft): (5) Atrial fibrillation: (6) Chronic ischemic heart disease: Given the patient's severe coronary artery disease including severe stebbins vessel disease and patent grafts by last cardiac catheterization 6 years ago I would have no surprise whatsoever that he is having chest discomfort in the setting of a hemoglobin of 6.9. I do not believe this represents acute coronary syndrome. I will order a 2D echocardiogram to evaluate for any wall motion abnormalities. Obviously, his Coumadin has been held and will not be restarted. Patient prefers to remain off Coumadin and questioning whether or not Eliquis therapy would be indicated. Risk of cardioembolic event discussed with the patient. I believe the most prudent course of action would be once current issues resolved discharge to home without anticoagulation and then follow-up as an outpatient with cardiology discussed the benefits of DOAC This is now his second significant bleeding episode while on Coumadin. Recommend transfusing to maintain hemoglobin at least above 9 or greater than 10 should he have any further chest discomfort. I have ordered another unit of packed red blood cells this morning given that his hemoglobin was 8 Otherwise, continue outpatient medical regimen INR of 2.3 today. Ongoing leg pain. Recommend oral vitamin K at this time. Admission and Anticipated Discharge Date Admission Date: February 04, 2021 Subjective Patient seen and examined, chart reviewed. States he is feeling well with only one episode of chest discomfort overnight when stood up from bed. Denies shortness of breath or palpitations. Telemetry reviewed: Normal sinus rhythm with underlying left bundle branch block Review of Systems Review of Systems: All systems reviewed & are unremarkable except as noted in HPI & below Physical Exam Physical Exam: General: Awake, alert and oriented x 3. No acute distress. HEENT: Normocephalic, atraumatic. Pupils equal, round and reactive to light and accommodation. Extraocular muscles are intact. Anicteric sclera. Moist mu cous membranes. Neck: No JVD. No bruit. Cardiovascular: Regular. Positive S-4. Normal S-1 and S-2. No S-3. No murmurs or rubs. Pulmonary: Clear to auscultation B/L. No rales, rhonchi or wheezing Abdomen: Bowel sounds x 4, soft. No rebound, guarding or tenderness. No organomegaly. Extremities: No clubbing, cyanosis or edema. +2 pedal pulses bilaterally. Skin: Warm and dry. Very large left thigh posterior hematoma. Results & Data ([facility]) Vital Signs (Past 12 Hours) Vital Signs Temp Pulse Pulse Resp BP BP BP 02/05/21 11:56 36.5 C 74 16 135/72 02/05/21 10:56 36.8 C 79 16 126/71 02/05/21 10:26 36.8 C 79 16 130/69 02/05/21 10:11 37.1 C 72 18 136/72 02/05/21 09:53 37.1 C 75 20 124/71 02/05/21 08:01 36.6 C 74 16 126/72 02/05/21 03:58 36.8 C 75 16 142/70 H 02/05/21 00:14 36.5 C 69 16 109/62 Pulse Ox 02/05/21 11:56 96 02/05/21 10:56 95 02/05/21 10:26 98 02/05/21 10:11 98 02/05/21 09:53 98 02/05/21 08:01 95 02/05/21 03:58 96 02/05/21 00:14 96 (1) Hematoma of left thigh Encounter type: initial encounter Qualified Code(s): S70.12XA - Contusion of left thigh, initial encounter
[2021-02-05] MEDS: ACETAMINOPHEN 325 MG TAB PO SCH ×4 (13:18→23:10)
--- NOTE | 2021-02-05 13:21 | Hospitalist Progress Note ---
Date of Service February 05, 2021 Assessment & Plan (1) Chest pain: 80yo male with PMH including CABG (2003), cardiac catheterization with stent placement (x1, 2009), HTN, HLD, pAfib, DVT, CKD3, PUD, hemorrhoidectomy, BPH presents via EMS with acute-onset chest pain, hypotension, anemia, and lower left extremity hematoma. Chest pain Likely ischemic in nature in the setting of severe anemia EKG with known LBB, non-contiguous ST-segment changes Initial troponin negative, 6 hours later, trivially detectable (0.017), repeat 6 hours later negative Echo unchanged from last in 2017 (EF 60-65%, wall motion abnormalities consistent with LBBB) - reassuring 02/05: repeat episode of angina overnight; given high likelihood of CP being secondary to cardiac ischemia, will transfuse 1u pRBC Zofran prn EKG if any recurrence of chest pain Appreciate ongoing cardiology recommendations Anemia, thigh hematoma Likely acute blood loss anemia 2/2 leg hematoma in the setting of supratherapeutic INR CTA LLE shows acute intramuscular hematoma within left biceps femoris without signs of active extravasation Appropriate Hgb elevation after 1u pRBC transfused on hospital day 1, but after a brief repeat episode of substernal chest pain, patient was transfused an additional unit on hospital day two, again with an appropriate increase in Hgb (up to 9.3) INR 1.8 on admission, increased to 2.3 on hospital day two Home warfarin held FOBT ordered Consider transfusion for Hgb<8.0 or recurrence of ischemic-pattern CP +/- EKG changes Thigh hematoma has been patient's primary source of pain during this admission Initially treated with morphine 2mg IV q30min prn - patient requested additional dose every 3-4 hours 02/05: increased to morphine 4mg IV q2h prn Follow daily CBC Chronic opioid use, peripheral neuropathy Patient's home regimen includes 390 MME/day of opioid pain meds Patient reports this is for peripheral neuropathy; has not complained of pain other than thigh pain at hematoma site Pain control as above On hospital days 1-2, patient averaged about 18-24 MME/day, patient without signs of opioid withdrawal Encourage patient to seek a safer outpatient pain regimen Hypotension: resolved Low of 96/47 after admission, improved in ED with volume repletion Hold home antihypertensives Protonix IV History of DVT Holding pharmacologic anticoagulation as above SCDs as tolerated Paroxysmal atrial fibrillation Patient currently in normal sinus rhythm Holding home warfarin Per cardiology consult, unlikely to restart warfarin as patient has not had episode of afib in years CKD3 Caution with IVF Avoid nephrotoxins CAD, HLD Continue home atorvastatin FEN: heart healthy diet Code status: full code DVT ppx: SCDs if tolerated - pharmacologic ppx contraindicated Consults: cardiology Dispo: PCU/tele Admission and Anticipated Discharge Date Admission Date: February 04, 2021 Supervising Physician Co-Signing Physician Notes I personally examined the patient and verified all watkins points of history and exam, discussed case, and agree with decision making with Dr Sanford Pain not well controlled. No further angina today. Vitals noted, in general he is awake and alert pleasant no distress. HEENT normocephalic atraumatic mucous membranes moist. Breathing unlabored no accessory muscle use good effort. No focal neuro deficits. Bruising is not circumferential. Coumadin coagulopathy prior to admission, with minor trauma leading to fairly massive thigh hematoma and acute blood loss anemia precipitating angina due to lack of oxygen carrying capacity from said acute blood loss anemia now treated with 1 unit transfusion with apparent hemodynamic stability and resolution in his angina. Transfused a second unit today. Angina seems to have resolved. Pain control. Time. PT/OT eval and treat. It is interesting that he is not showing any signs or symptoms of withdrawal despite having been off of his chronic regimen. otherwise as above Subjective Patient seen and evaluated at bedside this morning. Patient reports one brief episode of angina that occurred overnight while he was standing. Reports this was mild and brief. Pain did not radiate, and resolved after laying back down. This morning, patient reports severe LLE pain, which is the same pain he has experienced on and off for the past few days. Patient is able to ambulate with assistance. Denies other symptoms including SOB, nausea, vomiting, sweating, chills, fever, dizziness, or other symptoms. Review of Systems Review of Systems: See HPI Physical Exam Physical Exam: Constitutional: well-appearing, no acute distress CV: rhythm regular, rate 70-80, extremities well-perfused, no LLE edema Resp: CTABL, no increased work of breathing GI: soft, nondistended, nontender MSK: ecchymosis and mild tenderness of the LLE at the posterior/medial/lateral thigh with extension to the posterior/medial calf Neuro: AOx4, no focal neurological deficits appreciated Results & Data Results & Data ([facility]) Vital Signs (Past 12 Hours) Vital Signs Temp Pulse Pulse Resp BP BP BP 02/05/21 12:40 36.9 C 81 18 138/78 02/05/21 12:39 36.9 C 81 18 138/78 02/05/21 11:56 36.5 C 74 16 135/72 02/05/21 10:56 36.8 C 79 16 126/71 02/05/21 10:26 36.8 C 79 16 130/69 02/05/21 10:11 37.1 C 72 18 136/72 02/05/21 09:53 37.1 C 75 20 124/71 02/05/21 08:01 36.6 C 74 16 126/72 02/05/21 03:58 36.8 C 75 16 142/70 H Pulse Ox 02/05/21 12:40 98 02/05/21 12:39 98 02/05/21 11:56 96 02/05/21 10:56 95 02/05/21 10:26 98 02/05/21 10:11 98 02/05/21 09:53 98 02/05/21 08:01 95 02/05/21 03:58 96 Resident Activity Tracking Resident Involvement: Resident Care Provided Care Provided: Adult Hospital Medicine (1) Chest pain Chest pain type: unspecified Qualified Code(s): R07.9 - Chest pain, unspecified
[2021-02-05 16:45] LABS: Hematocrit (blood only) 27.8 % (42-52); Hemoglobin 9.3 g/dL (14.0-18.0)
[2021-02-05] MEDS: MoRPHine SULFATE 4 MG/ML 1 ML CARP\\VIAL IV PRN ×2 (17:42→19:58)
--- NOTE | 2021-02-05 19:06 | Billing Data ---
Date of Service February 05, 2021 Coding Level of Care Code 39503 Subseq Hosp Care Lvl 3
[2021-02-05] MEDS: ATORVASTATIN 40 MG TAB PO SCH (19:55)
[2021-02-06] MEDS: MoRPHine SULFATE 4 MG/ML 1 ML CARP\\VIAL IV PRN ×8 (02:02→23:08)
[2021-02-06] MEDS: LEVOTHYROXINE SODIUM 125 MCG TABLET PO SCH (06:10)
[2021-02-06] MEDS: ACETAMINOPHEN 325 MG TAB PO SCH ×4 (06:10→23:12)
[2021-02-06 06:48] LABS: Basophils # (auto) 0.02 K/uL (0-0.2); Basophils % (auto) 0.5 %; Eosinophils # (auto) 0.18 K/uL (0-0.5); Eosinophils % (auto) 4.4 %; Hematocrit (blood only) 27.7 % (42-52); Hemoglobin 9.3 g/dL (14.0-18.0); Immature Granulocytes # (auto) 0.03 K/uL (0.00-0.02); Immature Granulocytes % (auto) 0.7 %; Lymphocytes # (auto) 0.91 K/uL (1.2-3.4); Mean Corpuscular Hemoglobin 29.5 pg (25-34); Mean Corpuscular Hgb Conc 33.6 g/dL (32-36); Mean Corpuscular Volume 87.9 fL (80-100); Mean Platelet Volume 8.5 fL (7.4-10.4); Monocytes # (auto) 0.41 K/uL (0.11-0.59); Monocytes % (auto) 9.9 %; Neutrophils # (auto) 2.58 K/uL (1.4-6.5); Neutrophils % (auto) 62.5 %; Platelet Count 240 K/uL (130-400); RDW Coefficient of Variation 14.2 % (11.5-14.5); RDW Standard Deviation 45.6 fL (36.4-46.3); Red Blood Count 3.15 M/uL (4.7-6.1); White Blood Count 4.13 K/uL (4.8-10.8)
[2021-02-06 06:58] LABS: INR 2.3 (0.9-1.1)
[2021-02-06 07:18] LABS: Calcium 8.8 mg/dl (8.5-10.1); Creatinine Clr Calc Pharmacy 60.5 ml/min; Est GFR (African American) 83.6 ml/min; Est GFR (Non-African American) 72.1 ml/min
[2021-02-06] MEDS: SENNA 8.6 MG TAB PO SCH (09:01)
[2021-02-06] MEDS: PANTOprazole 40 MG in SYRINGE 0 ML IV SCH ×2 (09:01→20:04)
[2021-02-06] MEDS ORDERED: PHYTONADIONE 5 MG TAB PO STA (11:40)
[2021-02-06] MEDS: ASPIRIN 81 MG ECTAB PO SCH (12:12)
--- NOTE | 2021-02-06 13:27 | Cardiology Progress Note ---
Date of Service February 06, 2021 Assessment & Plan (1) Chronic ischemic heart disease: (2) PAF (paroxysmal atrial fibrillation): (3) Hematoma of left thigh: (4) Elevated INR: (1) Chronic ischemic heart disease: Patient with a longstanding history of chronic stable exertional angina. Troponin negative x3. EKG nondiagnostic due to the presence of left bundle branch block which had been previously observed prior to this hospital stay. -Presenting hemoglobin of 7.3 has improved to 9.3. No additional angina at present. -Resume aspirin 81 mg daily given his history of coronary heart disease/CABG. -Blood pressure is improved, resume prior to hospital treatment with metoprolol succinate 25 mg daily. Continue to hold amlodipine, hydralazine and losartan for now. However anticipate need to resume these medications prior to discharge. -Continue atorvastatin 80 mg daily. (2) PAF (paroxysmal atrial fibrillation): -History of remote paroxysmal atrial fibrillation without recent recurrence. -Given symptomatic anemia, left thigh hematoma, supratherapeutic INR, Coumadin has been discontinued. -Patient to remain off of anticoagulation. Continue with aspirin monotherapy. Future considerations include transition to Eliquis. But wait until the hematoma resolves, hemoglobin stabilized. (3) Hematoma of left thigh: -Patient with left thigh trauma just over a week ago. -As noted hemoglobin now stable status post transfusion. -Coumadin discontinued. -Resume aspirin. (4) Elevated INR: -INR 5.7 on presentation. Down to 2.3 today. Proceed with 2.5 mg of oral vitamin K. Repeat INR tomorrow. Disposition: Recommend patient remains in hospital least another 24 hours. Admission and Anticipated Discharge Date Admission Date: February 04, 2021 Subjective Mr. Blanc is seen in cardiology follow-up of his chief complaint of chest discomfort, findings of anemia, and left thigh hematoma. He notes feeling well this morning with no additional chest pains. Hemoglobin is stable at 9.3 status post transfusion of 2 units of packed red blood cells. He remains in sinus rhythm on telemetry. Review of Systems Review of Systems: All systems reviewed & are unremarkable except as noted in HPI & below Physical Exam Physical Exam: Temp Pulse Resp BP Pulse Ox 36.3 C L 70 19 121/68 97 02/06/21 11:13 02/06/21 11:13 02/06/21 11:13 02/06/21 11:13 02/06/21 11:13 Constitutional: WD/WN, vitals as above Respiratory: normal respiratory effort, lungs clear to auscultation Cardiovascular: RRR, no murmur, no edema Gastrointestinal (Abdomen): normal bowel sounds, soft, nontender, no hepatosplenomegaly Musculoskeletal: Left thigh firm, mild ecchymosis to the lateral/posterior aspect Neurologic: PERRL, EOMI, accommodation nl, no face palsy, no dysarthria Results & Data ([facility]) Vital Signs (Past 12 Hours) Vital Signs Temp Pulse Resp BP Pulse Ox 02/06/21 11:13 36.3 C L 70 19 121/68 97 02/06/21 07:11 36.4 C L 69 20 160/75 H 99 02/06/21 03:38 37.2 C 78 17 137/89 98 Laboratory Results Coagulation 02/06/21 Range/Units 06:28 PT 22.0 H (9.0-12.0) Seconds CBC 02/05/21 02/06/21 Range/Units 16:35 06:28 WBC 4.13 L (4.8-10.8) K/uL RBC 3.15 L (4.7-6.1) M/uL Hgb 9.3 L 9.3 L (14.0-18.0) g/dL Hct 27.8 L 27.7 L (42-52) % Plt Count 240 (130-400) K/uL Neut # (Auto) 2.58 (1.4-6.5) K/uL Lymph # (Auto) 0.91 L (1.2-3.4) K/uL [place] # (Auto) 0.41 (0.11-0.59) K/uL Eos # (Auto) 0.18 (0-0.5) K/uL Baso # (Auto) 0.02 (0-0.2) K/uL Comprehensive Metabolic Panel 02/06/21 Range/Units 06:28 Sodium 138 (136-145) mmol/L Potassium 4.0 D (3.5-5.1) mmol/L Chloride 106 (98-107) mmol/L Carbon Dioxide 29 (21-32) mmol/L BUN 20 H (7-18) mg/dl Creatinine 0.99 D (0.6-1.4) mg/dl Glucose 89 (70-99) mg/dl Calcium 8.8 (8.5-10.1) mg/dl Intake and Output 02/05/21 02/06/21 02/06/21 22:59 06:59 14:59 Intake Total 150 / 943 175 / 943 Output Total 550 / 1475 525 / 1475 Balance -400 / -532 -350 / -532 Intake: Oral 150 / 565 175 / 565 Output: Urine 550 / 1475 525 / 1475 Other: Weight 81.4 kg Weight Measurement Method Standing Scale (1) Hematoma of left thigh Encounter type: initial encounter Qualified Code(s): S70.12XA - Contusion of left thigh, initial encounter
[2021-02-06] MEDS: METOPROLOL SUCC 25MG EXT REL TAB PO SCH (15:39)
--- NOTE | 2021-02-06 17:18 | Hospitalist Progress Note ---
Date of Service February 06, 2021 Assessment & Plan (1) Chest pain: 80yo male with PMH including CABG (2003), cardiac catheterization with stent placement (x1, 2009), HTN, HLD, pAfib, DVT, CKD3, PUD, hemorrhoidectomy, BPH presents via EMS with acute-onset chest pain, hypotension, anemia, and known lower left extremity hematoma. Anemia, Acute blood loss sec to thigh hematoma in the setting of supratherapeutic INR CTA LLE shows acute intramuscular hematoma within left biceps femoris without signs of active extravasation Now s/p 2 units PRBCs; current Hgb remains stable at 9.3 Consider transfusion for Hgb<8.0 or recurrence of ischemic-pattern CP +/- EKG changes Thigh hematoma has been patient's primary source of pain during this admission Initially treated with morphine 2mg IV q30min prn - patient requested additional dose every 3-4 hours 02/05: increased to morphine 4mg IV q2h prn Follow daily CBC Supratherapeutic INR INR 5.7 on initial evaluation for leg hematoma on 01/30 -- on admission 02/04 INR 1.8, increased to 2.3 now Home warfarin held. Oral Vitamin K per cardiology. - Cardiology to follow on AC on discharge. Chest pain - Significant hx of chronic stable exertional angina; current episode likely ischemic in nature in the setting of severe anemia - EKG with known LBB - Troponin negative x3 - Echo unchanged from last in 2017 (EF 60-65%, wall motion abnormalities consistent with LBBB) - reassuring - Pain possibly ischemic from anemia - now s/p 2Units PRBC - Appreciate ongoing cardiology recommendations: will restart ASA given hx of CAD/CABG goal hb - 10 - No further chest pain. Chronic opioid use, peripheral neuropathy Patient's home regimen includes 390 MME/day of opioid pain meds Patient reports this is for peripheral neuropathy; has not complained of pain other than thigh pain at hematoma site Pain control as above On hospital days 1-2, patient averaged about 18-24 MME/day, patient without signs of opioid withdrawal Hypotension: resolved Low of 96/47 after admission, improved in ED with volume repletion Per cardiology- resume home metoprolol 25mg po daily History of DVT Holding pharmacologic anticoagulation as above SCDs as tolerated Paroxysmal atrial fibrillation Patient currently in normal sinus rhythm Holding home warfarin. Per cardiology consult, unlikely to restart warfarin as patient has not had episode of afib in years; follow up with cardiology as outpatient CKD3 Caution with IVF Avoid nephrotoxins CAD, HLD Continue home atorvastatin FEN: heart healthy diet Code status: full code DVT ppx: SCDs if tolerated - pharmacologic ppx contraindicated Consults: cardiology Dispo: Anticipate d/c home in am if no chest pain and h/h stable Admission and Anticipated Discharge Date Admission Date: February 04, 2021 Supervising Physician Co-Signing Physician Notes Resident Physician Supervision Note: I independently interviewed and examined the patient and verified the watkins history and physical, reviewed labs and image studies and agree with resident Dr. Cope findings and care plan. Subjective Mr. Blanc was seen and evaluated at bedside this morning. Only complaint today is left thigh pain associated with his known hematoma. Patient states that he otherwise feels well. Denies recurrent chest pain. Denies SOB, tachycardia, palpitations, headache, lightheadedness, dizziness, abd pain, nausea, or vomiting. Last BM 2 days ago (prior to hospitalization); reports typically w/ BM every 2-3 days. Review of Systems Review of Systems: See HPI Physical Exam Physical Exam: GENERAL: No acute distress. Well developed and well nourished. Vital signs reviewed as above. A/O x3. EYES: EOMI. Anicteric sclerae. HENT: Moist mucous membranes. RESPIRATORY: Clear to auscultation bilaterally. No wheezing, rales, or rhonchi. CARDIOVASCULAR: Regular rate and rhythm. No murmurs. ABDOMEN: Soft, non-tender and non-distended. No palpable masses. Normal bowel sounds. EXTREMITIES: Left thigh with mild ecchymosis to medial and posterior aspect with associated tenderness to palpation. No active bleeding or skin breakdown noted. SKIN: Warm, dry. See above. NEUROLOGIC: No focal neurological deficits. PSYCHIATRIC: Cooperative. Appropriate mood and affect. Results & Data Results & Data ([facility]) Vital Signs (Past 12 Hours) Vital Signs Temp Pulse Resp BP Pulse Ox 02/06/21 16:08 36.6 C 63 20 124/71 96 02/06/21 11:13 36.3 C L 70 19 121/68 97 02/06/21 07:11 36.4 C L 69 20 160/75 H 99 Resident Activity Tracking Resident Involvement: Resident Care Provided Care Provided: Adult Hospital Medicine (1) Chest pain Chest pain type: unspecified Qualified Code(s): R07.9 - Chest pain, unspecified
[2021-02-06] MEDS: ATORVASTATIN 40 MG TAB PO SCH (20:05)
[2021-02-07] MEDS: MoRPHine SULFATE 4 MG/ML 1 ML CARP\\VIAL IV PRN ×4 (03:21→10:13)
[2021-02-07] MEDS: ACETAMINOPHEN 325 MG TAB PO SCH ×3 (05:36→17:42)
[2021-02-07] MEDS: LEVOTHYROXINE SODIUM 125 MCG TABLET PO SCH (05:37)
[2021-02-07 06:49] LABS: Hematocrit (blood only) 25.9 % (42-52); Hemoglobin 8.5 g/dL (14.0-18.0); Mean Corpuscular Hemoglobin 29.7 pg (25-34); Mean Corpuscular Hgb Conc 32.8 g/dL (32-36); Mean Corpuscular Volume 90.6 fL (80-100); Mean Platelet Volume 8.1 fL (7.4-10.4); Platelet Count 239 K/uL (130-400); RDW Coefficient of Variation 13.9 % (11.5-14.5); RDW Standard Deviation 46.1 fL (36.4-46.3); Red Blood Count 2.86 M/uL (4.7-6.1); White Blood Count 3.53 K/uL (4.8-10.8)
[2021-02-07 06:55] LABS: INR 1.5 (0.9-1.1); Prothrombin Time 14.4 Seconds (9.0-12.0)
[2021-02-07 07:17] LABS: Calcium 8.2 mg/dl (8.5-10.1); Creatinine Clr Calc Pharmacy 58.7 ml/min; Est GFR (African American) 80.6 ml/min; Est GFR (Non-African American) 69.6 ml/min
[2021-02-07] MEDS: SENNA 8.6 MG TAB PO SCH (07:52)
[2021-02-07] MEDS: METOPROLOL SUCC 25MG EXT REL TAB PO SCH (07:52)
[2021-02-07] MEDS: ASPIRIN 81 MG ECTAB PO SCH (07:53)
[2021-02-07] MEDS: PANTOprazole 40 MG in SYRINGE 0 ML IV SCH (07:53)
[2021-02-07] MEDS ORDERED: SODIUM CHLORIDE 0.9% 250 ML IV PRN (10:13)
--- NOTE | 2021-02-07 10:28 | Electrocardiogram Report ---
Test Reason : Blood Pressure : / mmHG Vent. Rate : 070 BPM Atrial Rate : 070 BPM P-R Int : 208 ms QRS Dur : 150 ms QT Int : 470 ms P-R-T Axes : 020 -44 084 degrees QTc Int : 507 ms Normal sinus rhythm with sinus arrhythmia Left axis deviation Left bundle branch block Abnormal ECG When compared with ECG of 05-FEB-2021 04:58, No significant change was found Confirmed by Chauncey Spencer ([id number]) on 02/07/2021 10:28:32 AM Referred By: REFERRED SELF Confirmed By:Chauncey Spencer
--- NOTE | 2021-02-07 11:05 | Hospitalist Progress Note ---
Date of Service February 07, 2021 Assessment & Plan (1) Chest pain: (2) Chronic ischemic heart disease: (3) Atrial fibrillation: (4) Hypertension: (5) Symptomatic anemia: (6) Supratherapeutic INR: (7) Hematoma of left thigh: Admission and Anticipated Discharge Date Admission Date: February 04, 2021 Results & Data Results & Data ([facility]) Vital Signs (Past 12 Hours) Vital Signs Temp Pulse Pulse Resp BP Pulse Ox 02/07/21 07:52 36.8 C 69 18 159/63 H 98 02/07/21 07:50 58 L 02/07/21 03:11 36.6 C 64 18 167/78 H 98 02/06/21 23:57 58 L 02/06/21 23:16 36.4 C L 58 L 18 151/75 H 98 (1) Hematoma of left thigh Encounter type: initial encounter Qualified Code(s): S70.12XA - Contusion of left thigh, initial encounter (2) Chest pain Chest pain type: unspecified Qualified Code(s): R07.9 - Chest pain, unspecified
[2021-02-07] MEDS ORDERED: MoRPHine SULFATE 4 MG/ML 1 ML CARP\\VIAL IV ONE (11:17)
[2021-02-07] MEDS ORDERED: oxyCODONE HCL IR 5 MG TAB (IMMEDIATE RELEASE) PO PRN (13:05)
--- NOTE | 2021-02-07 16:02 | Cardiology Progress Note ---
Date of Service February 07, 2021 Assessment & Plan (1) Chronic ischemic heart disease: Given the patient's severe coronary artery disease including severe [place] vessel disease and patent grafts by last cardiac catheterization 6 years ago I would have no surprise whatsoever that he is having chest discomfort in the setting of a hemoglobin of 6.9. I do not believe this represents acute coronary syndrome. No new wall motion abnormalities on echocardiogram Obviously, his Coumadin has been held and will not be restarted. Patient prefers to remain off Coumadin and questioning whether or not Eliquis therapy would be indicated. Risk of cardioembolic event discussed with the patient. I believe the most prudent course of action would be once current issues resolved discharge to home without anticoagulation and then follow-up as an outpatient with cardiology discussed the benefits of DOAC This is now his second significant bleeding episode while on Coumadin. Recommend transfusing to maintain hemoglobin at least above 9 or greater than 10 should he have any further chest discomfort. Hemoglobin of 8.5 today will receive another unit of packed red blood cells. INR seems to have been reversed at 1.5 today. Otherwise, continue outpatient medical regimen I will defer ongoing pain management to the primary team. INR of 2.3 today. Ongoing leg pain. Recommend oral vitamin K at this time. (2) PAF (paroxysmal atrial fibrillation): (3) Hematoma of left thigh: (4) Elevated INR: (1) Chronic ischemic heart disease: Patient with a longstanding history of chronic stable exertional angina. Troponin negative x3. EKG nondiagnostic due to the presence of left bundle branch block which had been previously observed prior to this hospital stay. -Presenting hemoglobin of 7.3 has improved to 9.3. No additional angina at present. -Resume aspirin 81 mg daily given his history of coronary heart disease/CABG. -Blood pressure is improved, resume prior to hospital treatment with metoprolol succinate 25 mg daily. Continue to hold amlodipine, hydralazine and losartan for now. However anticipate need to resume these medications prior to discharge. -Continue atorvastatin 80 mg daily. (2) PAF (paroxysmal atrial fibrillation): -History of remote paroxysmal atrial fibrillation without recent recurrence. -Given symptomatic anemia, left thigh hematoma, supratherapeutic INR, Coumadin has been discontinued. -Patient to remain off of anticoagulation. Continue with aspirin monotherapy. Future considerations include transition to Eliquis. But wait until the hematoma resolves, hemoglobin stabilized. Patient is remained in sinus entire hospital stay to this point. (3) Hematoma of left thigh: -Patient with left thigh trauma just over a week ago. -As noted hemoglobin now stable status post transfusion. -Coumadin discontinued. -Resume aspirin. (4) Elevated INR: -INR 5.7 on presentation. Down to 2.3 today. Proceed with 2.5 mg of oral vitamin K. Repeat INR tomorrow. Disposition: Recommend patient remains in hospital least another 24 hours. Admission and Anticipated Discharge Date Admission Date: February 04, 2021 Subjective Patient seen and examined, chart reviewed. States he is in a significant amount of pain now after completing occupational therapy. Denies cardiac complaints of chest pain, shortness of breath, palpitations, lightheadedness, dizziness or syncope. Telemetry reviewed: Normal sinus rhythm without arrhythmia or significant ectopy. Review of Systems Review of Systems: All systems reviewed & are unremarkable except as noted in HPI & below Physical Exam Physical Exam: General: Awake, alert and oriented x 3. No acute distress. HEENT: Normocephalic, atraumatic. Pupils equal, round and reactive to light and accommodation. Extraocular muscles are intact. Anicteric sclera. Moist mucous membranes. Neck: No JVD. No bruit. Cardiovascular: Regular. Positive S-4. Normal S-1 and S-2. No S-3. No murmurs or rubs. Pulmonary: Clear to auscultation B/L. No rales, rhonchi or wheezing Abdomen: Bowel sounds x 4, soft. No rebound, guarding or tenderness. No organomegaly. Extremities: No clubbing, cyanosis or edema. +2 pedal pulses bilaterally. Skin: Warm and dry. Very large left thigh posterior hematoma. Results & Data ([facility]) Vital Signs (Past 12 Hours) Vital Signs Temp Pulse Pulse Resp BP BP Pulse Ox 02/07/21 15:21 36.7 C 68 16 160/80 H 98 02/07/21 14:21 60 16 149/81 H 98 02/07/21 13:56 36.8 C 62 16 145/79 H 97 02/07/21 12:51 36.8 C 64 16 126/72 98 02/07/21 12:36 36.3 C L 62 16 146/77 H 02/07/21 12:06 36.4 C L 78 16 137/79 02/07/21 11:42 36.5 C 54 L 18 132/64 96 02/07/21 07:52 36.8 C 69 18 159/63 H 98 02/07/21 07:50 58 L (1) Hematoma of left thigh Encounter type: initial encounter Qualified Code(s): S70.12XA - Contusion of left thigh, initial encounter
--- NOTE | 2021-02-07 17:18 | Discharge Summary ---
Date of Service February 07, 2021 Admission HPI Per Admitting Provider 80yo male with history of HTN, HLD, CKD3, peripheral neuropathy, hypothyroidism, DVT, ischemic heart disease s/p CABG (2003), cardiac catheterization (2009, stent x1 placed), and PUD presents to the ED with sudden-onset crushing substernal chest pain as well as fatigue. Patient was seen in the ED on 01/30 for a left thigh hematoma after bumping into his trailer, and was found to have an INR of 5.9. Patient was treated with vitamin K before being discharged home. At home, patient reports his hematoma continued to grow, but patient did not experience chest pain until last night when waking up to use the bathroom. Мария fine describes the chest pain as beneath his sternum, crushing in nature, 10/10 pain that does not radiate, associated with SOB and sweating. Patient called EMS and was treated en-route with ASA and nitroglycerin, which brought his pain down to 0/10. At time of interview, patient is comfortably resting in bed. Endorses LLE tenderness at the site of his thigh hematoma. Patient denies nausea, vomiti ng, abdominal pain, constipation, diarrhea, lightheadedness, dizziness, syncope, trauma since last ED visit, or other symptoms. Admission Exam Per Admitting Provider Constitutional: well-appearing, no acute distress HEENT: NCAT, no conjunctival injection CV: regular rhythm, no murmur appreciated, extremities well-perfused, no LLE edema Resp: CTABL, no wheezes/rales/rhonchi appreciated, no increased work of breathing GI: soft, nondistended, nontender, BS normoactive MSK: no chest wall tenderness; ecchymosis and mild tenderness of the LLE at the posterior, medial, and lateral thigh that extends to the posterior and medial side of his calf, no calf tenderness bilaterally Neuro: AOx4, no focal neurological deficits appreciated Psych: cooperative, pleasant, appropriate rate/volume/quantity of speech Principal Diagnosis symptomatic anemia Discharge Exam GENERAL: No acute distress. Well developed and well nourished. Vital signs reviewed as above. A/O x3. EYES: EOMI. Anicteric sclerae. HENT: Moist mucous membranes. RESPIRATORY: Clear to auscultation bilaterally. No wheezing, rales, or rhonchi. CARDIOVASCULAR: Regular rate and rhythm. No murmurs. ABDOMEN: Soft, non-tender and non-distended. No palpable masses. Normal bowel sounds. EXTREMITIES: Hematome with mild associated tenderness of the LLE at the posterior, medial, and lateral thigh. No calf tenderness bilaterally. SKIN: Warm, dry. See above. NEUROLOGIC: No focal neurological deficits. CN II-XII grossly intact, but not individually tested. PSYCHIATRIC: Cooperative. Appropriate mood and affect. Discharge Data Allergies Allergy/AdvReac Type Severity Reaction Status Date / Time terazosin Allergy Intermediate RASH Verified 02/04/21 07:16 pseudoephedrine Allergy Unknown Unknown Verified 02/04/21 07:16 ART Inhibitors AdvReac Mild COUGH Verified 02/04/21 07:16 isosorbide AdvReac Mild Headache Verified 02/04/21 07:16 Nitrate Analogues AdvReac Mild Headache Verified 02/04/21 07:16 Consultations 02/04/21 07:06 ED Decision to Admit Stat 02/04/21 09:42 Consult Cardiology Routine Ordered Studies 02/04/21 06:29 CT angio LE LT w inc wo if don Stat Hospital Course (1) Symptomatic anemia: Mr. Blanc is a 80yo male with PMH including CABG (2003), cardiac catheterization with stent placement (, 2009), HTN, HLD, pAfib, DVT, CKD3, PUD, hemorrhoidectomy, BPH presented via EMS with acute-onset chest pain, hypotension, anemia, and known lower left extremity hematoma. Anemia, Acute blood loss sec to thigh hematoma - In the setting of supratherapeutic INR - CTA LLE shows acute intramuscular hematoma within left biceps femoris without signs of active extravasation - s/p 3 units PRBCs; last unit was transfused on day of discharge, 02/07 - Thigh hematoma was patient's primary source of pain during this admission - Recommend repeat CBC in 2 days Supratherapeutic INR - INR 5.7 on initial evaluation for leg hematoma on 01/30 -- on admission 02/04 INR 1.8 --> increased to 2.3 --> 1.5 today - Home warfarin held and discontinued. Received Oral Vitamin K per cardiology. - Cardiology to follow on AC on discharge. Chest pain - Significant hx of chronic stable exertional angina; current episode likely ischemic in nature in the setting of severe anemia - EKG with known LBB; Troponin negative x3 - Echo unchanged from last in 2017 (EF 60-65%, wall motion abnormalities consistent with LBBB) - reassuring - Pain possibly ischemic from anemia - now s/p 3 Units PRBC - Cardiology was consulted during hospitalization. Restarted ASA given hx of CAD/CABG on 02/06. - No further chest pain. Chronic opioid use, peripheral neuropathy - Patient's home regimen includes 390 MME/day of opioid pain meds. His home regimen was held on admission. - Patient reports home pain regimen is for peripheral neuropathy; has not complained of pain other than thigh pain at hematoma site during hospitalization. - In beginning of hospitalization (days 1-2), patient averaged ~ 18-24 MME/day for pain control. - On day of discharge, patient required 40 MME in past 24 hours. - Patient had no signs of opioid withdrawal during hospitalization. Hypotension: resolved - Low of 96/47 after admission, improved in ED with volume repletion - Home metoprolol 25mg po daily started on 02/06. - Discharged on home regimen. History of DVT - Pharmacologic anticoagulation held. Paroxysmal atrial fibrillation - Patient currently in normal sinus rhythm - Home warfarin held during hospitalization and patient discharged w/o AC - Per cardiology consult, unlikely to restart warfarin as patient has not had episode of afib in years; follow up with cardiology as outpatient CAD, HLD - Continue home atorvastatin FEN: recommend heart healthy diet Code status: full code Dispo: home w/ (2) Anginal pain: (3) Hypertension: (4) Chronic ischemic heart disease: (5) Peripheral neuropathy: (6) Hypothyroidism: (7) CKD (chronic kidney disease), stage III: (8) Dyslipidemia: (9) Supratherapeutic INR: (10) Hematoma of left thigh: Total Time Total Time Spent Total Time Spent (In Minutes): See attending attestation Discharge Plan Discharge Items Patient Disposition: Home - Self-Care Reason For Visit: CHEST PAIN,ANEMIA Discharge Diagnosis: symptomatic anemia Activity: Resume your previous activity Non-emergency contact: Primary Care Provider Call non-emergency contact if: you have any medication questions Follow-up/Referrals: Mike Hanks DO [Lpn Care Manager] - Yi Alvares MD [Primary Care Provider] - Diet: Heart Healthy Addtl Attending Provider Instructions: You were admitted for chest pain associated with anemia (low blood counts) due to the large hematoma on your left leg. You received multiple blood transfusions during your stay. Please have repeat blood work to check your blood counts in 2 days (on , 02/09/21) prior to your follow up appointment. You have a follow up appointment with your PCP's office at their [facility] Office ([address] [place] [id number]) with Nicky Quick on 02/10/21 at 2:10 pm. You will also need follow up with your rider ticket worker, Dr. Hanks. Please call his office in 1-2 days if you do not hear from them. Pending Studies at Discharge: No Stand-Alone Forms: My [facility], Smoking Cessation Medications and DC Order Prescriptions: Continued ascorbic acid (vitamin C) 1,000 mg Tablet 1,000 mg PO BID RF: 0 garlic 500 mg Capsule 500 mg PO BID RF: 0 morphine 60 mg tablet extended release 60 mg PO BID RF: 0 oxycodone 30 mg tablet 30 mg PO 6XD RF: 0 cyclobenzaprine 10 mg tablet 10 mg PO BID PRN (Reason: Muscle Spasm) RF: 0 multivitamin Tablet 1 tab PO QAM RF: 0 losartan [Cozaar] 50 mg tablet 50 mg PO BID RF: 0 atorvastatin [Lipitor] 80 mg tablet 80 mg PO HS RF: 0 amlodipine [Norvasc] 10 mg tablet 10 mg PO QPM RF: 0 pantoprazole [Protonix] 40 mg tablet,delayed release (DR/EC) 40 mg PO QAM RF: 0 levothyroxine 125 mcg tablet 125 mcg PO QAM RF: 0 nitroglycerin [Nitrostat] 0.4 mg Tablet, Sublingual 0.4 mg sublingual DIRECTED PRN (Reason: Chest Pain) RF: 0 hydralazine 50 mg tablet 50 mg PO BID RF: 0 metoprolol succinate [Toprol XL] 25 mg tablet extended release 24 hr 25 mg PO QAM RF: 0 cholecalciferol (vitamin D3) [Vitamin D3] 1,000 unit Capsule 1,000 unit PO QAM RF: 0 herbal drugs Tablet 2 tab PO QAM RF: 0 aspirin 81 mg Tablet,Delayed Release (Dr/Ec) 81 mg PO QAM RF: 0 Discontinued warfarin 5 mg tablet 5 mg PO WK RF: 0 warfarin 5 mg tablet 7.5 mg PO [id number] RF: 0 Discharge Orders: Discharge Order (Routine); Ordered 02/07/21 Ordered By: Adalgisa Cope Admission Data Admit Date/Time: 02/04/21 08:34 Attending Provider: Kailey Levy Admit Provider: Glenn Sanford Primary Care Provider: Yi Alvares Other Providers: Isai Foster ; Jonnie Orellana ; Andre Benavidez Other Interventions: Discharge Summary Assessment (RN) Last Done: 02/07/21 17:57 Supervising Physician Co-Signing Physician Notes Resident Physician Supervision Note: I independently interviewed and examined the patient and verified the watkins history and physical, reviewed labs and image studies and agree with resident Dr. Cope findings and care plan. Resident Activity Tracking Resident Involvement: Resident Care Provided Care Provided: Adult Hospital Medicine
== END 2021-02-07 18:38 | disposition home or self-care (01) | DRG 812 ==
LOC: ED 05:41 → SUATTDRO 08:34 → 2S 08:34